=== PATIENT | female | born 1995 | race Caucasian/White ===

== ENCOUNTER 2016-05-12 19:02 | Outpatient (CLI) | payer MEDICAID ==
--- NOTE | 2016-05-12 20:00 | L&D Flow Sheet ---
LD Flowsheet Datetime Report Generated by CPN: 05/12/2016 20:00 Datetime: 05/12/2016 19:47 Communication Additional Nursing Comments: Pt stable, ambulatory, leaving unit accompanied by FOB (Valentina Lashanda, RN) Datetime: 05/12/2016 19:44 Assessment A Comments: Monitors discontinued for reactive NST. (Valentina Lashanda, RN) Teaching Teaching Comments: Pt encouraged to return to hospital for suspected ROM, heavy vaginal bleeding, strong/regular contractions or decreased movment. Pt verbalizes understanding, will make appt in office wednes (Valentina Lashanda, RN) Datetime: 05/12/2016 19:36 Vital Signs NBP Sys/Pricilla/Mean (mmHg): 128 (QS system process) : 81 (QS system process) : 98 (QS system process) Pulse: 94 (QS system process) Respirations: 15 (Valentina Lashanda, RN) Temperature (F): 98.2 (Valentina Lashanda, RN) Temperature (C): 36.8 (QS system process) Datetime: 05/12/2016 19:22 Pain Pain Assessment Comments: Pt in no obvious distress (Valentina Lashanda, RN) Vaginal Exam Membrane Status: Intact (Valentina Lashanda, RN) Vaginal Bleeding: None (Valentina Lashanda, RN) Patient Care I/O Interventions: Ice Chips Given; Popsicle; Clear Liquids Given (Valentina Lashanda, RN)
--- NOTE | 2016-05-12 21:56 | Non Stress Test Report ---
Non Stress Test Datetime Report Generated by CPN: 05/12/2016 21:56 DEMOGRAPHIC Test Number: 1 EGA NST: 40.4 INDICATION Indication for Study: Ordered by Provider MONITORING Monitor Explained: Monitor Explained; Test Explained; Patient Verbalized Understanding Time on Monitor: 05/12/2016 19:21 Time off Monitor: 05/12/2016 19:44 NST Duration: 23 NST INTERVENTIONS NST Interventions: PO Hydration; Reposition Patient Physician Notified NST: Dr. Oropeza BABY A: [id number] BABY A Movement : Present Contraction Frequency : none FHR Baseline : 140 Accelerations : 15X15 Decelerations : None Variability : Moderate 6-25bpm NST Review: Meets Criteria for Reactive NST NST Review and Verified By : DANYA Rice Results: Reactive NST COMMENTS NST Comments: see flowsheet for VS NST REPORT Report Trigger: Send Report
--- NOTE | 2016-05-13 04:46 | L&D Current Admission ---
Current Admit Datetime Report Generated by CPN: 05/13/2016 04:45 ADMISSION INFORMATION Chief Complaint: Repeat NST (05/12/2016 19:22:Valentina Pyle RN)
--- NOTE | 2016-05-13 04:46 | L&D Flow Sheet ---
LD Flowsheet Datetime Report Generated by CPN: 05/13/2016 04:45 Datetime: 05/12/2016 19:47 Communication Additional Nursing Comments: Pt stable, ambulatory, leaving unit accompanied by FOB (Valentina Lashanda, RN) Datetime: 05/12/2016 19:44 Uterine Activity Monitor Mode: External (Valentina Lashanda, RN) Frequency (min): None (Valentina Lashanda, RN) Resting Tone (Palpate): Relaxed (Valentina Lashanda, RN) Assessment A Monitor Mode: External US (Valentina Lashanda, RN) FHR Baseline Rate : 140 (Valentina Lashanda, RN) Variability: Moderate 6-25 bpm (Valentina Lashanda, RN) Accelerations: 15X15 (Valentina Lashanda, RN) Decelerations: None (Valentina Lashanda, RN) Comments: Monitors discontinued for reactive NST. (Valentina Lashanda, RN) Teaching Teaching Comments: Pt encouraged to return to hospital for suspected ROM, heavy vaginal bleeding, strong/regular contractions or decreased movment. Pt verbalizes understanding, will make appt in office thursday (Valentina Pyle RN) Datetime: 05/12/2016 19:36 Vital Signs NBP Sys/Pricilla/Mean (mmHg): 128 (QS system process) : 81 (QS system process) : 98 (QS system process) Pulse: 94 (QS system process) Respirations: 15 (Valentina Lashanda, RN) Temperature (F): 98.2 (Valentina Lashanda, RN) Temperature (C): 36.8 (QS system process) Datetime: 05/12/2016 19:22 Pain Pain Assessment Comments: Pt in no obvious distress (Valentina Lashanda, RN) Vaginal Exam Membrane Status: Intact (Valentina Lashanda, RN) Vaginal Bleeding: None (Valentina Lashanda, RN) Patient Care I/O Interventions: Ice Chips Given; Popsicle; Clear Liquids Given (Valentina Pyle RN)
--- NOTE | 2016-05-13 04:46 | L&D General Admission ---
General Admit Datetime Report Generated by CPN: 05/13/2016 04:45 INFORMATION Patient Age: 20 (03/26/2016 14:37:QS system process) EDC: 05/08/2016 00:00 (05/12/2016 19:17:Valentina Pyle RN) : 3 (05/12/2016 19:17:Valentina Pyle RN) Para: 0 (05/12/2016 19:47:Valentina Pyle RN) Para: 0 (05/12/2016 19:17:Valentina Pyle RN) Term: 0 (05/12/2016 19:17:Valentina Pyle RN) : 0 (05/12/2016 19:17:Valentina Pyle RN) Spontaneous Abortions: 2 (05/12/2016 19:17:Valentina Pyle RN) Induced Abortions: 0 (05/12/2016 19:17:Valentina Pyle RN) Livin (05/12/2016 19:17:Valentina Pyle RN) Cesareans: 0 (05/12/2016 19:17:Valentina Pyle RN) VBACs: 0 (05/12/2016 19:17:Valentina Pyle RN) Ectopic: 0 (05/12/2016 19:17:Valentina Pyle RN) Multiple Births: 0 (05/12/2016 19:17:Valentina Pyle RN) Baby, Number in Womb: 1 (05/12/2016 19:47:Valentina Pyle RN) Baby, Number in Womb: 1 (05/12/2016 19:17:Valentina Pyle RN) CARE Primary Caster Helper: [facility] (05/12/2016 19:17:Valentina Pyle RN) Caster Helper Other: KESHA (05/12/2016 19:17:Valentina Pyle RN) Adequate Care: Yes (05/12/2016 19:17:Valentina Pyle RN) Prepregnancy Weight (lb): 188 (05/12/2016 19:17:Valentina Pyle RN) Prepregnancy Weight (kg): 85.5 (05/12/2016 19:17:QS system process) ALLERGIES Medication Allergy: No (05/12/2016 19:17:Valentina Pyle RN) Medication Allergies: No Known Allergies (05/01/2012) (03/26/2016 14:37:QS system process) Latex Allergy: No Latex Allergies (05/12/2016 19:17:Valentina Pyle RN) COMMUNICATION Primary Language: Montserratian (05/12/2016 19:17:Valentina Pyle RN) Medical Tx Preferred Language: Montserratian (05/12/2016 19:17:Valentina Pyle RN) DEMOGRAPHICS Address: [address] [place] [id number] (03/26/2016 14:37:QS system process) Zipcode: [address] (03/26/2016 14:37:QS system process) Home (03/26/2016 14:37:QS system process) SSN: [id number] (03/26/2016 14:37:QS system process) Next of Kin Name: HOMERO CASTANEDA (03/26/2016 14:37:QS system process) Next of Kin (03/26/2016 14:37:QS system process) Next of Kin Relationship: OR (03/26/2016 14:37:QS system process) Date of : 1995 (03/26/2016 14:37:QS system process) Marital Status: Single (03/26/2016 14:37:QS system process) Sex: Female (03/26/2016 14:37:QS system process) Race: (03/26/2016 14:37:QS system process) Ethnicity: Non- or (03/26/2016 14:37:QS system process) Restorationist: Other (03/26/2016 14:37:QS system process) LABS Blood Type: A Negative (05/12/2016 19:17:Valentina Pyle RN) Antibody Screen: negative (05/12/2016 19:17:Valentina Pyle RN) Group Beta Strep: negative (05/12/2016 19:17:Valentina Pyle RN) Gonorrhea: Negative (05/12/2016 19:17:Valentina Pyle RN) Chlamydia: Negative (05/12/2016 19:17:Valentina Pyle RN) RPR/VDRL: Nonreactive (05/12/2016 19:17:Valentina Pyle RN) HIV Exposure Test: Negative (05/12/2016 19:17:Valentina Lashanda, RN) OB/PREVIOUS HISTORY Comments Obstetrical History: G1: SAB G2: SAB G3: Current (05/12/2016 19:17:Valentina Lashanda, RN) INFECTIOUS HISTORY Inf Hx Chlamydia: Yes (05/12/2016 19:17:Valentina Lashanda, RN) Details of Infectious Hx: chlam in 2012 and 2014 (05/12/2016 19:17:Valentina Lashanda, RN) GENETIC HISTORY Gen Hx Drugs/Meds since LMP: Yes (05/12/2016 19:17:Valentina Pyle RN) Gen Hx Medications: pnv, iron (05/12/2016 19:17:Valentina Pyle RN)
--- NOTE | 2016-05-13 04:47 | L&D Discharge Summary ---
OB Discharge Summary Datetime Report Generated by CPN: 05/13/2016 04:45 DISCHARGE DIAGNOSIS Diagnosis/Symptoms: Reassuring Surveillance - Annotate Details Diagnoses/Symptoms Other: Repeat NST reactive Gestation: 40.4 Number of Babies in Womb: 1 Parity: 0 DIET/ACTIVITY/RESTRICTIONS Diet: Regular Activity: Normal Activity TEACHING/INSTRUCTIONS/REFERRALS Instructions Given To: Pt, significant other Instructions Understood: Patient Verbalized Understanding; Support Person Verbalized Understanding Educational Materials- Other: Term labor instructions discussed DISCHARGE INFORMATION Discharged AMA: No Discharge Date/Time: 05/12/2016 19:47 Discharged To: Home Discharge Provider Name: Oropeza Accompanied By: FOB Discharge Method: Ambulatory Condition: Stable FOLLOW UP INFORMATION Follow Up With: [facility] Follow Up On: 1-2 Days Follow Up Phone Number: [facility] - Comments: See flowsheet for VS and education
--- NOTE | 2016-05-13 04:47 | L&D Admission Assessment ---
LD ADM ASMT Datetime Report Generated by CPN: 05/13/2016 04:45 PAIN Pain Comments: Pt in no obvious distress (05/12/2016 19:22:Valentina Lashanda, RN) CONTRACTIONS Frequency (min): None (05/12/2016 19:44:Valentina Lashanda, RN) Resting Tone [place]: Relaxed (05/12/2016 19:44:Valentina Lashanda, RN) VAGINAL EXAM Membranes Status: Intact (05/12/2016 19:22:Valentina Lashanda, RN) RESPIRATORY Respiratory Effort: Unlabored (05/12/2016 19:22:Valentina Lashanda, RN) GASTROINTESTINAL Last Meal: 05/12/2016 18:30 (05/12/2016 19:22:Valentina Lashanda, RN) BABY A FHR Baseline Rate (bpm) Baby A: 140 (05/12/2016 19:44:Valentina Pyle RN) Variability Baby A: Moderate 6-25 bpm (05/12/2016 19:44:Valentina Pyle RN) Accelerations Baby A: 15X15 (05/12/2016 19:44:Valentina Pyle RN) Decelerations Baby A: None (05/12/2016 19:44:Valentina Pyle RN)
--- NOTE | 2016-05-13 04:47 | Antepartum Discharge Summary ---
Antepartum DC Datetime Report Generated by CPN: 05/13/2016 04:45 DIET/ACTIVITY/RESTRICTIONS Diet: Regular (05/12/2016 19:47:Valentina Lashanda, RN) Activity: Normal Activity (05/12/2016 19:47:Valentina Lashanda, RN) TEACHING/INSTRUCTIONS/REFERRALS Instructions Given To: Pt, significant other (05/12/2016 19:47:Valentina Lashanda, RN) Instructions Understood: Patient Verbalized Understanding; Support Person Verbalized Understanding (05/12/2016 19:47:Valentina Pyle RN) Educational Materials- Other: Term labor instructions discussed (05/12/2016 19:47:Valentina Pyle RN) DISCHARGE INFORMATION Discharged AMA: No (05/12/2016 19:47:Valentina Pyle RN) Discharge Date/Time: 05/12/2016 19:47 (05/12/2016 19:47:Valentina Pyle RN) Discharged To: Home (05/12/2016 19:47:Valentina Pyle RN) Discharge Provider Name: Dr Oropeza (05/12/2016 19:47:Valentina Pyle RN) Accompanied By: YAZAN (05/12/2016 19:47:Valentina Pyle RN) Discharge Method: Ambulatory (05/12/2016 19:47:Valentina Pyle RN) Condition: Stable (05/12/2016 19:47:Valentina Pyle RN) FOLLOW UP INFORMATION Follow Up With: [facility] (05/12/2016 19:47:Valentina Pyle RN) Follow Up On: 1-2 Days (05/12/2016 19:47:Valentina Pyle RN) Follow Up Phone Number: [facility] - (05/12/2016 19:47:Valentina Pyle RN) Comments: See flowsheet for VS and education (05/12/2016 19:47:Valentina Pyle RN)
== END 2016-05-12 19:47 | disposition home or self-care (01) ==
LOC: LC 19:02
PROVIDERS: ATTEND Obstetrics & Gynecology
PROC: 4A1HXCZ Monitoring of Products of Conception, Cardiac Rate, External Approach (ICD-10-PCS; principal; 2016-05-12)
DX: O48.0 Post-term pregnancy (principal); Z3A.40 40 weeks gestation of pregnancy
CPT/HCPCS: 59025

== ENCOUNTER 2016-05-13 09:47 | Outpatient (CLI) | payer MEDICAID ==
[2016-05-13 10:29] LABS: APPEARANCE,URINE CLOUDY; BILIRUBIN,URINE NEGATIVE (NEGATIVE); GLUCOSE, URINE NEGATIVE (NEGATIVE); KETONES,URINE NEGATIVE (NEGATIVE); LEUKOCYTE ESTERASE,URINE LARGE (NEGATIVE); NITRITE,URINE NEGATIVE (NEGATIVE); PROTEIN,URINE NEGATIVE (NEGATIVE); UROBILINOGEN,URINE NEGATIVE mg/dL (<2.0)
--- NOTE | 2016-05-13 10:44 | Non Stress Test Report ---
Non Stress Test Datetime Report Generated by CPN: 05/13/2016 10:44 DEMOGRAPHIC EGA NST: 40.5 INDICATION Indication for Study: Ordered by Provider MONITORING Monitor Explained: Monitor Explained; Test Explained; Patient Verbalized Understanding Time on Monitor: 05/13/2016 10:06 Time off Monitor: 05/13/2016 10:43 NST Duration: 37 NST INTERVENTIONS NST Interventions: None Physician Notified NST: A Emmel CNM BABY A Movement : Present Contraction Frequency : none FHR Baseline : 135 Accelerations : 15X15 Decelerations : None Variability : Moderate 6-25bpm NST Review: Meets Criteria for Reactive NST NST Review and Verified By : Janes Adorno RN NST Results: Reactive NST REPORT Report Trigger: Send Report
[2016-05-13 17:41] LABS: URINE BARBITURATES SCREEN NEGATIVE; URINE METHADONE SCREEN NEGATIVE; URINE PHENCYCLIDINE SCREEN NEGATIVE
--- NOTE | 2016-05-15 04:46 | L&D Discharge Summary ---
OB Discharge Summary Datetime Report Generated by CPN: 05/15/2016 04:45 DISCHARGE DIAGNOSIS Diagnosis/Symptoms: Other Diagnoses/Symptoms Other: Not in Labor Gestation: 40.6 Number of Babies in Womb: 1 Parity: 0 DIET/ACTIVITY/RESTRICTIONS Diet: Regular Activity: Normal Activity TEACHING/INSTRUCTIONS/REFERRALS Instructions Given To: pt Instructions Understood: Patient Verbalized Understanding; Support Person Verbalized Understanding Referrals: None Educational Materials- Other: [employer] [facility] Early Labor Signs DISCHARGE INFORMATION Discharged AMA: No Discharge Date/Time: 05/13/2016 11:00 Discharged To: Home Discharge Provider Name: EMMEL Accompanied By: Significant other Discharge Method: Ambulatory Condition: Stable FOLLOW UP INFORMATION Follow Up With: [facility] Follow Up On: As Scheduled Follow Up Phone Number: [facility] - Comments: Pt discharged and signed up for IOL Post Dates 05/14 for cervidil. Pt verbalizes understanding, no distress noted, understands s/s to report, when to return to hospital for evaluation, to keep scheduled appointments. Agrees with plan of care, ambulates without difficulty, states relief from pain, declines pain medication at discharge. GENERAL INSTR-CALL PROVIDER IF: Contractions: Contractions or cramps become more frequent than 8 in one hour or 4 in 20 minutes; Regular painful contractions every 5 minutes or less for one hour. Time your contractions from the beginning of one to the beginning of the next Pressure: Pressure in your vagina or lower abdomen that may feel like the baby is pushing down Period Like Cramps: Period-like cramps or low dull backache that may come and go Cramps/Diarrhea: Abdominal cramps that may be accompanied by diarrhea Gush of Fluid/Blood: Gush of fluid or blood from your vagina (it is normal to have spotting after vaginal exam or intercourse) Vaginal Discharge: Change in the type or amount of vaginal discharge Decreased Movement: Your baby is not moving as much as usual- 4 movements in 1 hour after drinking and resting on side Temperature: Temperature greater than 100.0(F) orally
--- NOTE | 2016-05-15 04:46 | Antepartum Discharge Summary ---
Antepartum DC Datetime Report Generated by CPN: 05/15/2016 04:45 DIET/ACTIVITY/RESTRICTIONS Diet: Regular (05/13/2016 10:44:Carlos Kirk, RN) Activity: Normal Activity (05/13/2016 10:44:Carlos Kirk, RN) TEACHING/INSTRUCTIONS/REFERRALS Instructions Given To: pt (05/13/2016 10:44:Carlos Kirk, RN) Instructions Understood: Patient Verbalized Understanding; Support Person Verbalized Understanding (05/13/2016 10:44:Carlos Bradley RN) Referrals: None (05/13/2016 10:44:Carlos Bradley RN) Educational Materials- Other: Kick Counts Early Labor Signs (05/13/2016 10:44:Carlos Bradley RN) DISCHARGE INFORMATION Discharged AMA: No (05/13/2016 10:44:Carlos Bradley RN) Discharge Date/Time: 05/13/2016 11:00 (05/13/2016 10:44:Carlos Bradley RN) Discharged To: Home (05/13/2016 10:44:Carlos Bradley RN) Discharge Provider Name: EMMEL (05/13/2016 10:44:Carlos Bradley RN) Accompanied By: Significant other (05/13/2016 10:44:Carlos Bradley RN) Discharge Method: Ambulatory (05/13/2016 10:44:Carlos Bradley RN) Condition: Stable (05/13/2016 10:44:Carlos Bradley RN) FOLLOW UP INFORMATION Follow Up With: [facility] (05/13/2016 10:44:Carlos Bradley RN) Follow Up On: As Scheduled (05/13/2016 10:44:Carlos Bradley RN) Follow Up Phone Number: [facility] - (05/13/2016 10:44:Carlos Bradley RN) Comments: Pt discharged and signed up for IOL Post Dates 05/14 for cervidil. Pt verbalizes understanding, no distress noted, understands s/s to report, when to return to hospital for evaluation, to keep scheduled appointments. Agrees with plan of care, ambulates without difficulty, states relief from pain, declines pain medication at discharge. (05/13/2016 10:44:Carlos Bradley RN) GENERAL INSTR-CALL PROVIDER IF: Contractions: Contractions or cramps become more frequent than 8 in one hour or 4 in 20 minutes; Regular painful contractions every 5 minutes or less for one hour. Time your contractions from the beginning of one to the beginning of the next (05/13/2016 10:44:Carlos Bradley RN) Pressure: Pressure in your vagina or lower abdomen that may feel like the baby is pushing down (05/13/2016 10:44:Carlos Bradley RN) Period Like Cramps: Period-like cramps or low dull backache that may come and go (05/13/2016 10:44:Carlos Bradley RN) Cramps/Diarrhea: Abdominal cramps that may be accompanied by diarrhea (05/13/2016 10:44:Carlos Bradley RN) Gush of Fluid/Blood: Gush of fluid or blood from your vagina (it is normal to have spotting after vaginal exam or intercourse) (05/13/2016 10:44:Carlos Bradley RN) Vaginal Discharge: Change in the type or amount of vaginal discharge (05/13/2016 10:44:Carlos Bradley RN) Decreased Movement: Your baby is not moving as much as usual- 4 movements in 1 hour after drinking and resting on side (05/13/2016 10:44:Carlos Bradley RN) Temperature: Temperature greater than 100.0(F) orally (05/13/2016 10:44:Carlos Bradley RN) Hypertension Signs/Symptoms: Severe headache which is not relieved 30 minutes after taking Tylenol(Acetaminophen); Blurry vision or spots before your eyes; Severe heartburn or pain on the upper right side of your abdomen that is not relieved by an antacid; Increased swelling in your face, hands or feet (05/13/2016 10:44:Carlos Bradley RN) Urinary Output: Decreased urinary output or dark colored urine (05/13/2016 10:44:Carlos Bradley RN) ADDITIONAL INSTRUCTIONS N/V [place]/Crackers: Keep dry toast/crackers with you to [facility] on (05/13/2016 10:44:Carlos Bradley RN) N/V Frequent Meals: Eat small frequent meals (05/13/2016 10:44:Carlos Bradley RN) N/V Empty Stomach: Try to keep something in your stomach (don't let your stomach get empty) (05/13/2016 10:44:Carlos Bradley RN) N/V Time Getting Up: Take your time getting up (05/13/2016 10:44:Carlos Bradley RN) N/V Avoid Smells: Avoid smells that make you feel sick (05/13/2016 10:44:Carlos Bradley RN) Travel Seatbelts: Wear seatbelts or safety/lap belts (05/13/2016 10:44:Carlos Bradley RN) Travel Walk Frequently: Walk frequently, every 1-2 hours (05/13/2016 10:44:Carlos Bradley RN) Travel Comfort Clothes: Wear clothing that does not constrict and comfortable shoes (05/13/2016 10:44:Carlos Bradley RN) Travel Light Snack: Keep a light snack (e.g. dry crackers) with you at all times to prevent nausea (05/13/2016 10:44:Carlos Bradley RN) Travel Hydration: Drink plenty of water, low sodium and noncaffeinated drinks (05/13/2016 10:44:Carlos Bradley RN) Travel Medications: DO NOT take any medication that is not approved by your physician first (05/13/2016 10:44:Carlos Bradley RN) Travel PN Records: Always keep a copy of your medical record with you just in case (05/13/2016 10:44:Carlos Bradley RN) Edema Avoid Standing: Avoid standing for long periods, keep legs up when you can (05/13/2016 10:44:Carlos Bradley RN) Edema Rest on Side: When resting, lie on your side (left is best) (05/13/2016 10:44:Carlos Bradley RN) Edema Limit Sodium: Limit the amount of salty foods you eat (05/13/2016 10:44:Carlos Bradley RN) Edema Support Hose: Try to wear support hose as much as possible (05/13/2016 10:44:Carlos Bradley RN) Exercise Overheating: Avoid situations that would cause you to become overheated (05/13/2016 10:44:Carlos Bradley RN) Exercise Weather: Exercise outdoors only if the weather is reasonable and not too hot (05/13/2016 10:44:Carlos Bradley RN) Exercise Exertion: Do not over exert yourself when you exercise (05/13/2016 10:44:Carlos Bradley RN) Exercise Hydration: Drink plenty of fluids, especially water (05/13/2016 10:44:Carlos Bradley RN) Exercise Support: Wear good support hose, bra and shoes when exercising (05/13/2016 10:44:Carlos Bradley RN) Varicose Veins Instructions: Do not stand for long periods of time (05/13/2016 10:44:Carlos Bradley RN) Varicose Veins Elevate Sit: Try to keep your legs elevated when you are sitting (05/13/2016 10:44:Carlos Bradley RN) Varicose Veins Elevate Lying: When lying down, keep your legs elevated (05/13/2016 10:44:Carlos Bradley RN) Varicise Veins Non Binding: When wearing stockings or socks, make sure they are not too tight and bind your legs (05/13/2016 10:44:Carlos Bradley RN) Varicose Veins Support: Wear support hose/stockings at all times (05/13/2016 10:44:Carlos Bradley RN) Varicose Veins Periodic Move: If you have a job where you sit a lot, get up periodically and walk around (05/13/2016 10:44:Carlos Bradley RN)
--- NOTE | 2016-05-19 06:12 | L&D General Admission ---
General Admit Datetime Report Generated by CPN: 05/19/2016 06:00 INFORMATION Patient Age: 20 (03/26/2016 14:37:QS system process) EDC: 05/08/2016 00:00 (05/12/2016 19:17:Valentina Pyle RN) : 3 (05/12/2016 19:17:Valentina Pyle RN) Para: 0 (05/12/2016 19:47:Valentina Pyle RN) Term: 0 (05/12/2016 19:17:Valentina Pyle RN) : 0 (05/12/2016 19:17:Valentina Pyle RN) Spontaneous Abortions: 2 (05/12/2016 19:17:Valentina Pyle RN) Induced Abortions: 0 (05/12/2016 19:17:Valentina Pyle RN) Livin (05/12/2016 19:17:Valentina Pyle RN) Cesareans: 0 (05/12/2016 19:17:Valentina Pyle RN) VBACs: 0 (05/12/2016 19:17:Valentina Pyle RN) Ectopic: 0 (05/12/2016 19:17:Valentina Pyle RN) Multiple Births: 0 (05/12/2016 19:17:Valentina Pyle RN) Baby, Number in Womb: 1 (05/12/2016 19:47:Valentina Pyle RN) CARE Primary Field Marketing Representative: [facility] (05/12/2016 19:17:Valentina Pyle RN) Field Marketing Representative Other: [facility] (05/12/2016 19:17:Valentina Pyle RN) Adequate Care: Yes (05/12/2016 19:17:Valentina Pyle RN) Prepregnancy Weight (lb): 188 (05/12/2016 19:17:Valentina Pyle RN) Prepregnancy Weight (kg): 85.5 (05/12/2016 19:17:QS system process) Height (in): 65 (05/13/2016 10:19:QS system process) ALLERGIES Medication Allergy: No (05/12/2016 19:17:Valentina Pyle RN) Medication Allergies: No Known Allergies (05/13/2016) (05/13/2016 09:59:QS system process) Latex Allergy: No Latex Allergies (05/12/2016 19:17:Valentina Pyle RN) Food Allergies: N/A (05/12/2016 19:17:Nallely Gonzalez RN) Environmental Allergies: N/A (05/12/2016 19:17:Nallely Gonzalez RN) COMMUNICATION Primary Language: Qatari (05/12/2016 19:17:Valentina Pyle RN) Medical Tx Preferred Language: Qatari (05/12/2016 19:17:Valentina Pyle RN) Communication Barrier(s): None (05/12/2016 19:17:Carlos Bradley RN) DEMOGRAPHICS Address: [address] [place] [id number] (03/26/2016 14:37:QS system process) Zipcode: [address] (03/26/2016 14:37:QS system process) Home (03/26/2016 14:37:QS system process) SSN: [id number] (03/26/2016 14:37:QS system process) Next of Kin Name: HOMERO CASTANEDA (03/26/2016 14:37:QS system process) Next of Kin (03/26/2016 14:37:QS system process) Next of Kin Relationship: OR (03/26/2016 14:37:QS system process) Date of : 1995 (03/26/2016 14:37:QS system process) Marital Status: Single (03/26/2016 14:37:QS system process) Sex: Female (03/26/2016 14:37:QS system process) Race: (03/26/2016 14:37:QS system process) Ethnicity: Non- or (03/26/2016 14:37:QS system process) Rastafarian: Other (03/26/2016 14:37:QS system process) FOB Involved: Yes (05/12/2016 19:17:Nallely Gonzalez RN) Father of Baby Name: Marcin Fields (05/12/2016 19:17:Nallely Gonzalez RN) DRUG AND ALCOHOL USE Alcohol: No (05/12/2016 19:17:Carlos Bradley RN) Cigarettes: Never Smoker. [id number] (05/12/2016 19:17:Carlos Bradley RN) Marijuana: No (05/12/2016 19:17:Carlos Bradley RN) Cocaine: No (05/12/2016 19:17:Carlos Bradley RN) Other Illicit Drugs: No (05/12/2016 19:17:Carlos Bradley RN) VACCINE HISTORY Influenza Vaccine: No (05/12/2016 19:17:Nallely Gonzalez RN) Pneumococcal Vaccine: No (05/12/2016 19:17:Nallely Gonzalez RN) Tetanus Vaccine: No (05/12/2016 19:17:Nallely Gonzalez RN) Tdap Vaccine: No (05/12/2016 19:17:Nallely Gonzalez RN) Hepatitis B Vaccine: No (05/12/2016 19:17:Nallely Gonzalez RN) Contact Printer Dry Film: [facility] (05/12/2016 19:17:Nallely Gonzalez RN) Feeding Preference: Formula (05/12/2016 19:17:Elli Suazo RN) Benefit of Breast Feed Discussed: Yes (05/12/2016 19:17:Nallely Gonzalez RN) Circumcision: N/A (05/12/2016 19:17:Carlos Bradley RN) Classes Attended: No (05/12/2016 19:17:Carlos Bradley RN) Tubal Ligation: No (05/12/2016 19:17:Carlos Bradley RN) Tubal Authorization Signed: N/A (05/12/2016 19:17:Carlos Bradley RN) Consent: N/A (05/12/2016 19:17:Carlos Bradley RN) Consent Signed: N/A (05/12/2016 19:17:Carlos Bradley RN) Pain Management Plans: None (05/12/2016 19:17:Nallely Gonzalez RN) Plans for Labor and Delivery: None (05/12/2016 19:17:Nallely Gonzalez RN) Support Person: Marcin Fields (05/12/2016 19:17:Nallely Gonzalez RN) Support Person Relationship: Significant Other (05/12/2016 19:17:Nallely Gonzalez RN) Cultural/Spritual Practice: No (05/12/2016 19:17:Carlos Bradley RN) Spir/Cult Dietary Needs: No (05/12/2016 19:17:Carlos Bradley RN) LIVING SITUATION/DISCHARGE PLAN Living Arrangements: House (05/12/2016 19:17:Nallely Gonzalez RN) Adequate Access to:: Electric; Heat; Refrigeration; Plumbing/Running water; Phone; Transportation (05/12/2016 19:17:Nallely Gonzalez RN) WIC Program: Yes (05/12/2016 19:17:Nallely Gonzalez RN) Discharge Nail Assembly Machine Operator Person: Marcin Donnie (05/12/2016 19:17:Nallely Gonzalez RN) Person to Help after Discharge: Marcin Donnie (05/12/2016 19:17:Nallely Gonzalez RN) Currently Using Commun Resources: No (05/12/2016 19:17:Nallely Gonzalez RN) Outside Agency/Preassembler And Inspector: No (05/12/2016 19:17:Nallely Gonzalez RN) Car Seat for Discharge: Yes (05/12/2016 19:17:Nallely Gonzalez RN) Adoption Requested: No (05/12/2016 19:17:Nallely Gonzalez RN) Pt Contact w/ Post : N/A (05/12/2016 19:17:Nallely Gonzalez RN) LABS Blood Type: A Negative (05/12/2016 19:17:Valentina Pyle RN) Antibody Screen: negative (05/12/2016 19:17:Valentina Pyle RN) Rho(G) this : Yes (05/12/2016 19:17:Carlos Bradley RN) Date Rho(G) Given: 02/19/16 (05/12/2016 19:17:Carlos Bradley RN) Hemoglobin: 8.3 L (05/16/2016 07:05:QS system process) Hematocrit: 24.8 L (05/16/2016 07:05:QS system process) MCV: 82 (05/16/2016 07:05:QS system process) Group Beta Strep: negative (05/12/2016 19:17:Valentina Pyle RN) Gonorrhea: Negative (05/12/2016 19:17:Valentina Pyle RN) Chlamydia: Negative (05/12/2016 19:17:Valentina Pyle RN) RPR/VDRL: Nonreactive (05/12/2016 19:17:Valentina Pyle RN) HIV Exposure Test: Negative (05/12/2016 19:17:Valentina Pyle RN) Hepatitis B: Negative (05/12/2016 19:17:Carlos Bradley RN) Rubella: Non-Immune (05/12/2016 19:17:Carlos Bradley RN) Varicella: Negative (05/12/2016 19:17:Carlos Bradley RN) Varicella Titer: 60 (05/12/2016 19:17:Carlos Bradley RN) OB/PREVIOUS HISTORY Current Procedures: Ultrasound; NST (05/12/2016 19:17:Nallely Gonzalez RN) History of Previous : No (05/12/2016 19:17:Nallely Gonzalez RN) History of Gestational Diabetes: No (05/12/2016 19:17:Nallely Gonzalez RN) History of PIH: No (05/12/2016 19:17:aNllely Gonzalez RN) History of Incompetent Cervix: No (05/12/2016 19:17:Nallely Gonzalez RN) History of Placenta Previa/Abrup: No (05/12/2016 19:17:Nallely Gonzalez RN) History of Macrosomia: No (05/12/2016 19:17:Nallely Gonzalez RN) History of IUGR: No (05/12/2016 19:17:Nallely Gonzalez RN) History of Hemorrhage: No (05/12/2016 19:17:Nallely Gonzalez RN) History of Loss/Stillborn: No (05/12/2016 19:17:Nallely Gonzalez RN) History of : No (05/12/2016 19:17:Nallely Gonzalez RN) History of D (Rh) Sensitization: No (05/12/2016 19:17:Nallely Gonzalez RN) History Recurrent Loss/Stillborn: No (05/12/2016 19:17:Nallely Gonzalez RN) History Depression/PP Depression: No (05/12/2016 19:17:Nallely Gonzalez RN) History of Uterine Anomaly/FRIEDA: No (05/12/2016 19:17:Nallely Gonzalez RN) History of Infertility: No (05/12/2016 19:17:Nallely Gonzalez RN) History of ART Treatment: No (05/12/2016 19:17:Nallely Gonzalez RN) History of FRIEDA: No (05/12/2016 19:17:Nallely Gonzalez RN) Comments Obstetrical History: G1: SAB G2: SAB G3: Current (05/12/2016 19:17:Valentina Pyle RN) MEDICAL HISTORY Med Hx Diabetes: No (05/12/2016 19:17:Nallely Gonzalez RN) Med Hx Hypertension: No (05/12/2016 19:17:Nallely Gonzalez RN) Med Hx Heart Disease: No (05/12/2016 19:17:Nallely Gonzalez RN) Med Hx Autoimmune Disorder: No (05/12/2016 19:17:Nallely Field, RN) Med Hx Kidney Disease/UTI: No (05/12/2016 19:17:Nallely Gonzalez RN) Med Hx Neurologic/Epilepsy: No (05/12/2016 19:17:Nallely Gonzalez RN) Med Hx Psychiatric Disorders: No (05/12/2016 19:17:Nallely Gonzalez, RN) Med Hx Hepatitis/Liver Disease: No (05/12/2016 19:17:Nallely Gonzalez RN) Med Hx Varicosities/Phlebitis: No (05/12/2016 19:17:Nallely Gonzalez RN) Med Hx Thyroid Dysfunction: No (05/12/2016 19:17:Nallely Gonzalez RN) Med Hx Trauma/Violence: No (05/12/2016 19:17:Nallely Gonzalez RN) Med Hx Blood Transfusion: No (05/12/2016 19:17:Nallely Gonzalez RN) Med Hx Pulmonary (Asthma,TB): No (05/12/2016 19:17:Nallely Gonzalez RN) Med Hx Breast: No (05/12/2016 19:17:Nallely Gonzalez RN) Med Hx LABORATORY ASSOCIATE Surgery: No (05/12/2016 19:17:Nallely Gonzalez RN) Med Hx Hospitalization/Surgery: No (05/12/2016 19:17:Nallely Gonzalez RN) Med Hx Anesthetic Complications: No (05/12/2016 19:17:Nallely Gonzalez, RN) Med Hx Abnormal Pap Smear: No (05/12/2016 19:17:Nallely Gonzalez, RN) Other Medical Diseases: No (05/12/2016 19:17:Nallely Gonzalez RN) Med Hx Significant Family Hx: No (05/12/2016 19:17:Nallely Gonzalez RN) Details of Med/Surg Hx: Obesity (05/12/2016 19:17:Carlos Bradley RN) INFECTIOUS HISTORY Inf Hx Gonorrhea: No (05/12/2016 19:17:Nallely Gonzalez RN) Inf Hx Chlamydia: Yes (05/12/2016 19:17:Valentina Pyle RN) Inf Hx Syphilis: No (05/12/2016 19:17:Nallely Gonzalez RN) Inf Hx HIV/AIDS: No (05/12/2016 19:17:Nallely Gonzalez RN) Inf Hx Human Papilloma Virus: No (05/12/2016 19:17:Nallely Gonzalez RN) Inf Hx Pt/Partner Genital Herpes: No (05/12/2016 19:17:Nallely Gonzalez RN) Inf Hx Tuberculosis/Exposure: No (05/12/2016 19:17:Nallely Gonzalez RN) Inf Hx Hepatitis B,C: No (05/12/2016 19:17:Nallely Gonzalez RN) Inf Hx Rash or Viral Illness: No (05/12/2016 19:17:Nallely Gonzalez RN) Details of Infectious Hx: chlamydia in 2012 and 2014 (05/12/2016 19:17:Carlos Bradley RN) GENETIC HISTORY Gen Hx Age >=35 at [facility]: No (05/12/2016 19:17:Nallely Gonzalez RN) Gen Hx Thalassemia: No (05/12/2016 19:17:Nallely Gonzalez RN) Gen Hx Congenital Heart Defect: No (05/12/2016 19:17:Nallely Gonzalez RN) Gen Hx Neural Tube Defect: No (05/12/2016 19:17:Nallely Gonzalez RN) Gen Hx Down's Syndrome: No (05/12/2016 19:17:Nallely Gonzalez RN) Gen Hx Christ-Sachs: No (05/12/2016 19:17:Nallely Gonzalez RN) Gen Hx Tera: No (05/12/2016 19:17:Nallely Gonzalez RN) Gen Hx Familial Dysautonomia: No (05/12/2016 19:17:Nallely Gonzalez RN) Gen Hx Sickle Cell Disease/Trait: No (05/12/2016 19:17:Nallely Gonzalez RN) Gen Hx Hemophilia/Blood Disorder: No (05/12/2016 19:17:Nallely Gonzalez RN) Gen Hx Muscular Dystrophy: No (05/12/2016 19:17:Nallely Gonzalez RN) Gen Hx Cystic Fibrosis: No (05/12/2016 19:17:Nallely Gonzalez RN) Gen Hx Huntingtons Chorea: No (05/12/2016 19:17:Nallely Gonzalez RN) Gen Hx Mental Retardation/Autism: No (05/12/2016 19:17:Nallely Gonzalez RN) Gen Hx Tested for Fragile X: No (05/12/2016 19:17:Nallely Gonzalez RN) Gen Hx Other Inher/Chromosomal: No (05/12/2016 19:17:Nallely Gonzalez RN) Gen Hx Maternal Metabolic DO: No (05/12/2016 19:17:Nallely Gonzalez RN) Gen Hx Pt Father or FOB Defect: No (05/12/2016 19:17:Nallely Gonzalez RN) Gen Hx Other Genetic History: No (05/12/2016 19:17:Nallely Gonzalez RN) Gen Hx Drugs/Meds since LMP: Yes (05/12/2016 19:17:Valentina Pyle RN) Gen Hx Medications: pnv, iron (05/12/2016 19:17:Valentina Pyle RN)
--- NOTE | 2016-05-19 06:12 | L&D Current Admission ---
Current Admit Datetime Report Generated by CPN: 05/19/2016 06:00 ADMISSION INFORMATION Current Admit Date/Time: 05/14/2016 19:22 (05/14/2016 19:39:Nallely Gonzalez RN) Reason for Admission: Induction of Labor (05/14/2016 19:39:Nallely Gonzalez RN) Chief Complaint: Scheduled Induction of Labor (05/14/2016 19:41:Nallely Gonzalez RN) EGA per Dates: 40.6 (05/14/2016 19:39:QS system process) Method of Arrival: Ambulatory (05/14/2016 19:39:Nallely Gonzalez RN) Reason for Induction: Postterm (05/14/2016 19:39:Nallely Gonzalez RN) Records Available: Yes (05/14/2016 19:39:Nallely Gonzalez RN) General Admission Information: Reviewed; Updated; Confirmed (05/14/2016 19:39:Nallely Gonzalez RN) General Admission Reviewed By: DANYA Kenny (05/14/2016 19:39:Nallely Gonzalez RN) BELONGINGS/ADVANCED DIRECTIVES Valuables/Personal Effects: Purse/Wallet; Cell Phone; Jewelry (05/14/2016 19:39:Nallely Gonzalez RN) Disposition of Belongings: Kept with Patient (05/14/2016 19:39:Nallely Gonzalez RN) Advance Direct for Healthcare: No, and Wants No Information (05/14/2016 19:39:Nallely Gonzalez RN) Durable Power of Last Marker: No (05/14/2016 19:39:Nallely Gonzalez RN) Living Will: No (05/14/2016 19:39:Nallely Gonzalez RN) Organ Donor: Yes (05/14/2016 19:39:Nallely Gonzalez RN) Pt Rights Information Given: Yes (05/14/2016 19:39:Nallely Gonzalez RN) Pt Understands Pt Rights: Yes (05/14/2016 19:39:Nallley Gonzalez RN) LEARNING ASSESSMENT Knowledge Level: Understands L_D Process; Understands Care Activities; Had Pre-Hospital Education; Understands Diagnosis (05/14/2016 19:39:Nallely Gonzalez RN) Barriers to Learning: None (05/14/2016 19:39:Nallely Gonzalez RN) Learning Readiness: Motivated (05/14/2016 19:39:Nallely Gonzalez RN) Learns Best By: 1 to 1 Instruction; Reading; Videos; Demonstration (05/14/2016 19:39:Elli Suazo RN) Learning Needs: Labor and Delivery Process; Pain Management; Symptoms to Report; Treatment Plan; Medication; Diagnosis; Nutrition; Equipment; Infant Care; Community Resources (05/14/2016 19:39:Elli Suazo RN) DOMESTIC VIOLANCE SCREENING Dom Viol Threatened/Hurt: No (05/14/2016 19:39:Nallely Gonzalez RN) Hx of Abuse/Neglect past 2yrs: No (05/14/2016 19:39:Nallely Gonzalez RN) Feel Unsafe Going Home: No (05/14/2016 19:39:Nallely Gonzalez RN) Addt'l Observ Indicating Abuse: No (05/14/2016 19:39:Nallely Gonzalez RN) Reason Unable to Complete Screen: N/A, Screen Completed (05/14/2016 19:39:Nallely Gonzalez RN) Considered Personal Harm/Suicide: No (05/14/2016 19:39:Nallely Gonzalez RN) NUTRITIONAL/FUNCTIONAL SCREENING Problem with Appetite >5 Days: No (05/14/2016 19:39:Nallely Gonzalez RN) Chew/Swallow Difficulties: No (05/14/2016 19:39:Nallely Gonzalez RN) Inappropriate Wt Gain/Loss: No (05/14/2016 19:39:Nallely Gonzalez RN) Presence Skin Breakdown/Ulcer: No (05/14/2016 19:39:Nallely Gonzalez RN) Special Diet: No (05/14/2016 19:39:Nallely Gonzalez RN) Pt Requests Paint Trimmer Pipe Bowls Visit: No (05/14/2016 19:39:Nallely Gonzalez RN) Hx of Any of the Following?: N/A (05/14/2016 19:39:Nallely Gonzalez RN) New Diagnosis of: N/A (05/14/2016 19:39:Nallely Gonzalez RN) Requires Assist w/Ambulation: No (05/14/2016 19:39:Nallely Gonzalez RN) Uses Assist Device to Ambulate: No (05/14/2016 19:39:Nallely Gonzalez RN) Pt Requires Help w/ADL's: No (05/14/2016 19:39:Nallely Gonzalez RN)
--- NOTE | 2016-05-19 14:11 | Antepartum Discharge Summary ---
Antepartum DC Datetime Report Generated by CPN: 05/19/2016 14:11 Diet: Regular (05/13/2016 10:44:Carlos Bradley RN) Activity: Normal Activity (05/13/2016 10:44:Carlos Bradley RN) Instructions Given To: pt (05/13/2016 10:44:Carlos Bradley RN) Instructions Understood: Patient Verbalized Understanding; Support Person Verbalized Understanding (05/13/2016 10:44:Carlos Bradley RN) Referrals: None (05/13/2016 10:44:Carlos Bradley RN) Educational Materials- Other: Kick Counts Early Labor Signs (05/13/2016 10:44:Carlos Bradley RN) Discharged AMA: No (05/13/2016 10:44:Carlos Bradley RN) Discharge Date/Time: 05/13/2016 11:00 (05/13/2016 10:44:Carlos Bradley RN) Discharged To: Home (05/13/2016 10:44:Carlos Bradley RN) Discharge Provider Name: KURT (05/13/2016 10:44:Carlos Bradley RN) Accompanied By: Significant other (05/13/2016 10:44:Carlos Bradley RN) Discharge Method: Ambulatory (05/13/2016 10:44:Carlos Bradley RN) Condition: Stable (05/13/2016 10:44:Carlos Bradley RN) Follow Up With: [facility] (05/13/2016 10:44:Carlos Bradley RN) Follow Up On: As Scheduled (05/13/2016 10:44:Carlos Bradley RN) Follow Up Phone Number: [facility] - (05/13/2016 10:44:Carlos Bradley RN) Comments: Pt discharged and signed up for IOL Post Dates 05/14 for cervidil. Pt verbalizes understanding, no distress noted, understands s/s to report, when to return to hospital for evaluation, to keep scheduled appointments. Agrees with plan of care, ambulates without difficulty, states relief from pain, declines pain medication at discharge. (05/13/2016 10:44:Carlos Bradley RN) Contractions: Contractions or cramps become more frequent than 8 in one hour or 4 in 20 minutes; Regular painful contractions every 5 minutes or less for one hour. Time your contractions from the beginning of one to the beginning of the next (05/13/2016 10:44:Carlos Bradley RN) Pressure: Pressure in your vagina or lower abdomen that may feel like the baby is pushing down (05/13/2016 10:44:Carlos Bradley RN) Period Like Cramps: Period-like cramps or low dull backache that may come and go (05/13/2016 10:44:Carlos Bradley RN) Cramps/Diarrhea: Abdominal cramps that may be accompanied by diarrhea (05/13/2016 10:44:Carlos Bradley RN) Gush of Fluid/Blood: Gush of fluid or blood from your vagina (it is normal to have spotting after vaginal exam or intercourse) (05/13/2016 10:44:Carlos Bradley RN) Vaginal Discharge: Change in the type or amount of vaginal discharge (05/13/2016 10:44:Carlos Bradley RN) Decreased Movement: Your baby is not moving as much as usual- 4 movements in 1 hour after drinking and resting on side (05/13/2016 10:44:Carlos Bradley RN) Temperature: Temperature greater than 100.0(F) orally (05/13/2016 10:44:Carlos Bradley RN) Hypertension Signs/Symptoms: Severe headache which is not relieved 30 minutes after taking Tylenol(Acetaminophen); Blurry vision or spots before your eyes; Severe heartburn or pain on the upper right side of your abdomen that is not relieved by an antacid; Increased swelling in your face, hands or feet (05/13/2016 10:44:Carlos Bradley RN) Urinary Output: Decreased urinary output or dark colored urine (05/13/2016 10:44:Carlos Bradley RN) N/V [place]/Crackers: Keep dry toast/crackers with you to [facility] on (05/13/2016 10:44:Carlos Bradley RN) N/V Frequent Meals: Eat small frequent meals (05/13/2016 10:44:Carlos Bradley RN) N/V Empty Stomach: Try to keep something in your stomach (don't let your stomach get empty) (05/13/2016 10:44:Carlos Bradley RN) N/V Time Getting Up: Take your time getting up (05/13/2016 10:44:Carlos Bradley RN) N/V Avoid Smells: Avoid smells that make you feel sick (05/13/2016 10:44:Carlos Bradley RN) Travel Seatbelts: Wear seatbelts or safety/lap belts (05/13/2016 10:44:Carlos Bradley RN) Travel Walk Frequently: Walk frequently, every 1-2 hours (05/13/2016 10:44:Carlos Bradley RN) Travel Comfort Clothes: Wear clothing that does not constrict and comfortable shoes (05/13/2016 10:44:Carlos Bradley RN) Travel Light Snack: Keep a light snack (e.g. dry crackers) with you at all times to prevent nausea (05/13/2016 10:44:Carlos Bradley RN) Travel Hydration: Drink plenty of water, low sodium and noncaffeinated drinks (05/13/2016 10:44:Carlos Bradley RN) Travel Medications: DO NOT take any medication that is not approved by your physician first (05/13/2016 10:44:Carlos Bradley RN) Travel PN Records: Always keep a copy of your medical record with you just in case (05/13/2016 10:44:Carlos Bradley RN) Edema Avoid Standing: Avoid standing for long periods, keep legs up when you can (05/13/2016 10:44:Carlos Bradley RN) Edema Rest on Side: When resting, lie on your side (left is best) (05/13/2016 10:44:Carlos Bradley RN) Edema Limit Sodium: Limit the amount of salty foods you eat (05/13/2016 10:44:Carlos Bradley RN) Edema Support Hose: Try to wear support hose as much as possible (05/13/2016 10:44:Carlos Bradley RN) Exercise Overheating: Avoid situations that would cause you to become overheated (05/13/2016 10:44:Carlos Bradley RN) Exercise Weather: Exercise outdoors only if the weather is reasonable and not too hot (05/13/2016 10:44:Carlos Bradley RN) Exercise Exertion: Do not over exert yourself when you exercise (05/13/2016 10:44:Carlos Bradley RN) Exercise Hydration: Drink plenty of fluids, especially water (05/13/2016 10:44:Carlos Bradley RN) Exercise Support: Wear good support hose, bra and shoes when exercising (05/13/2016 10:44:Carlos Bradley RN) Varicose Veins Instructions: Do not stand for long periods of time (05/13/2016 10:44:Carlos Bradley RN) Varicose Veins Elevate Sit: Try to keep your legs elevated when you are sitting (05/13/2016 10:44:Carlos Bradley RN) Varicose Veins Elevate Lying: When lying down, keep your legs elevated (05/13/2016 10:44:Carlos Bradley RN) Varicise Veins Non Binding: When wearing stockings or socks, make sure they are not too tight and bind your legs (05/13/2016 10:44:Carlos Bradley RN) Varicose Veins Support: Wear support hose/stockings at all times (05/13/2016 10:44:Carlos Bradley RN) Varicose Veins Periodic Move: If you have a job where you sit a lot, get up periodically and walk around (05/13/2016 10:44:Carlos Bradley RN)
--- NOTE | 2016-05-19 14:12 | L&D Current Admission ---
Current Admit Datetime Report Generated by [facility]: 05/19/2016 14:12 Chief Complaint: Brown/pink discharge this morning. Pt was seen in office yesterday. (05/13/2016 10:10:Carlos Bradley RN)
--- NOTE | 2016-05-19 14:13 | L&D Discharge Summary ---
OB Discharge Summary Datetime Report Generated by CPN: 05/19/2016 14:13 DISCHARGE DIAGNOSIS Diagnosis/Symptoms: Other Diagnoses/Symptoms Other: Not in Labor Gestation: 41.0 Number of Babies in Womb: 1 Parity: 0 DIET/ACTIVITY/RESTRICTIONS Diet: Regular Activity: Normal Activity TEACHING/INSTRUCTIONS/REFERRALS Instructions Given To: pt Instructions Understood: Patient Verbalized Understanding; Support Person Verbalized Understanding Referrals: None Educational Materials- Other: Kick Counts Early Labor Signs DISCHARGE INFORMATION Discharged AMA: No Discharge Date/Time: 05/13/2016 11:00 Discharged To: Home Discharge Provider Name: EMMEL Accompanied By: Significant other Discharge Method: Ambulatory Condition: Stable FOLLOW UP INFORMATION Follow Up With: [facility] Follow Up On: As Scheduled Follow Up Phone Number: [facility] - Comments: Pt discharged and signed up for IOL Post Dates 05/14 for cervidil. Pt verbalizes understanding, no distress noted, understands s/s to report, when to return to hospital for evaluation, to keep scheduled appointments. Agrees with plan of care, ambulates without difficulty, states relief from pain, declines pain medication at discharge. GENERAL INSTR-CALL PROVIDER IF: Contractions: Contractions or cramps become more frequent than 8 in one hour or 4 in 20 minutes; Regular painful contractions every 5 minutes or less for one hour. Time your contractions from the beginning of one to the beginning of the next Pressure: Pressure in your vagina or lower abdomen that may feel like the baby is pushing down Period Like Cramps: Period-like cramps or low dull backache that may come and go Cramps/Diarrhea: Abdominal cramps that may be accompanied by diarrhea Gush of Fluid/Blood: Gush of fluid or blood from your vagina (it is normal to have spotting after vaginal exam or intercourse) Vaginal Discharge: Change in the type or amount of vaginal discharge Decreased Movement: Your baby is not moving as much as usual- 4 movements in 1 hour after drinking and resting on side Temperature: Temperature greater than 100.0(F) orally
--- NOTE | 2016-05-19 14:13 | L&D Flow Sheet ---
LD Flowsheet Datetime Report Generated by CPN: 05/19/2016 14:13 Datetime: 05/13/2016 10:53 NBP Sys/Pricilla/Mean (mmHg): 122 (QS system process) : 61 (QS system process) : 86 (QS system process) Pulse: 86 (QS system process) Datetime: 05/13/2016 10:42 Communication Comments: Discharge orders obtained from A Emmel CNM; IOL consents signed for cervidil 05/14/16. Provider reviewed strip and all lab results and vs. (Carlos Kirk, DANYA) Datetime: 05/13/2016 10:38 NBP Sys/Pricilla/Mean (mmHg): 129 (QS system process) : 78 (QS system process) : 96 (QS system process) Pulse: 93 (QS system process) Datetime: 05/13/2016 10:32 Dilatation (cm): 1.0 (Carlos Bradley RN) Effacement (%): 80 (Carlos Bradley RN) Station: -2 (Carlos Bradley RN) Exam by: A Iraj CNLanette (Carlos Bradley RN) Vaginal Bleeding: None (Carlos Bradley RN) Datetime: 05/13/2016 10:30 Communication Comments: A Iraj CNM at bedside for assessment (Carlos Bradley RN) Datetime: 05/13/2016 10:23 NBP Sys/Pricilla/Mean (mmHg): 124 (QS system process) : 74 (QS system process) : 87 (QS system process) Pulse: 89 (QS system process) Datetime: 05/13/2016 10:10 Pain Scale: 3 (Carlos Bradley RN) Pain Presence: Intermittent (Carlos Bradley RN) Pain Type: Cramping (Carlos Bradley RN) Pain Location: Abdomen (Carlos Bradley RN) Pain Relief Measures: Comfort Measures (Carlos Bradley RN) Pain Coping: Declines Medication or Epidural (Carlos Bradley RN) Vaginal Bleeding: None (Carlos Bradley RN) Level of Consciousness: Fully Conscious (Carlos Bradley RN) DTR's/Clonus: DTRs 1+; No Clonus (Carlos Bradley RN) Headache: Denies (Carlos Bradley RN) Breath Sounds, Left: Clear and Equal (Carlos Bradley RN) Breath Sounds, Right: Clear and Equal (Carlos Bradley RN) Nausea/Vomiting: Denies (Carlos Bradley RN) RUQ Epigastric Pain: Denies (Carlos Bradley RN) Patient Position/Activity: Left Lateral (Carlos Bradley RN) Comfort Measures: Breathing/Relaxation (Carlos Bradley RN) I/O Interventions: Clear Liquids Given; Up to BR (Carlos Bradley RN) Instructional Method: Demo; Verbal; Patient Instructed; Family/Support Person Instructed; Verbalized Understanding (Carlos Bradley RN) Plan of Care: Plan of Care Discussed (Carlos Bradley RN) Unit Routine: [place] to Room; Call [place]; Bed; Waiting Areas; Phone/Cell Phone Use; Unit Personnel; Handwashing; Flu/Illness Precautions; Monitoring; Safety/Fall Risk Prevention; Bathroom Privileges (Carlos Bradley RN) Labor/Induction: Labor Stages (Carlos Bradley RN) Pain Management: Pain Scale/Goals; Comfort Measures (Carlos Bradley RN) Related: Common Discomforts of ; Maternal Physical Changes; Maternal Emotional Changes; Nutrition; Hydration; Activity and Rest (Carlos Bradley RN) Datetime: 05/13/2016 10:09 Communication Comments: A Iraj CNM called and notified of pt complaint of bleeding, hx, pain, vs. States she will come to assess pt. (Carlos Bradley RN) Datetime: 05/13/2016 10:08 NBP Sys/Pricilla/Mean (mmHg): 122 (QS system process) : 96 (QS system process) : 103 (QS system process) Pulse: 98 (QS system process)
== END 2016-05-13 11:01 | disposition home or self-care (01) ==
LOC: LC 09:47
PROVIDERS: ATTEND Specialist
PROC: 4A1HXCZ Monitoring of Products of Conception, Cardiac Rate, External Approach (ICD-10-PCS; principal; 2016-05-13)
DX: Z34.93 Encounter for supervision of normal pregnancy, unspecified, third trimester (principal); Z3A.40 40 weeks gestation of pregnancy
CPT/HCPCS: 59025; 80307; 81005

== ENCOUNTER 2016-05-14 19:12 | Inpatient (IN) | payer MEDICAID ==
--- NOTE | 2016-05-14 19:17 | L&D Progress Notes ---
PROGRESS NOTES Datetime Report Generated by CPN: 05/14/2016 19:17 PROGRESS NOTE Plan: Anticipate Vaginal Delivery Informed Consent Obtained: Induction of Labor; Risks, Benefits and Alternatives Discussed Vital Signs : Reviewed Comment: pt set up for cervical ripening 05/14/2016 cervix mildly soft induction paperwork reviewed with pt and fob r/b/a d/c home with precautions reviewed kick counts and labor precautions VAGINAL EXAM Dilatation: 2 Effacement: 80 Station: -2 FETUS A FHR - Baseline: 130 Monitoring: External US Variability: Moderate 6-25bpm Accelerations: 15X15 FHR Category: Category I : 40.5 SIGNATURE SIGNATURE: [id number] SIGNATURE: [id number] SIGNATURE: [id number] Assignment: Nallely Hackett MD Signature: with User ID: [email or web address] : with User ID: [email or web address]
[2016-05-14] MEDS ORDERED: DINOPROSTONE 10 MG VAGINAL INSERT.SR PV PRN (19:18)
[2016-05-14] MEDS ORDERED: OXYTOCIN/NORMAL SALINE 1,000 ML IV PRN (19:18)
[2016-05-14] MEDS ORDERED: RINGERS SOLUTION,LACTATED 1,000 ML IV PRN (19:18)
--- NOTE | 2016-05-14 20:01 | L&D Flow Sheet ---
LD Flowsheet Datetime Report Generated by CPN: 05/14/2016 20:00 Datetime: 05/14/2016 19:41 Pain Pain Scale: 0 (Nallely Gonzalez, RN) Pain Presence: None/Denies (Nallely Gonzalez, RN) Pain Type: N/A (Nallely Gonzalez, RN) Pain Goal: 0 (Nallely Gonzalez, RN) Vaginal Exam Vaginal Bleeding: Normal Show (Nallely Field, RN) Maternal Assessment Level of Consciousness: Fully Conscious (Nallely Field, RN) DTR's/Clonus: DTRs 2+; No Clonus (Nallely Field, RN) Headache: Denies (Nallely Field, RN) Breath Sounds, Left: Clear and Equal (Nallely Field, RN) Breath Sounds, Right: Clear and Equal (Nallely Field, RN) Nausea/Vomiting: Denies (Nallely Field, RN) RUQ Epigastric Pain: Denies (Nallely Field, RN) Patient Care IV/Blood Work: IV Started; IV Bolus Started; IV Infusing per Order; New IV Bag Hung; IV Bag Number @ 1 (Nallely Gonzalez RN) Teaching Instructional Method: Verbal; Patient Instructed; Family/Support Person Instructed; Verbalized Understanding (Nallely Gonzalez RN) Plan of Care: Plan of Care Discussed; Vaginal Delivery; Induction (Nallely Gonzalez RN) Unit Routine: [place] to Room; Call [place]; Bed; Visiting Policy; Waiting Areas; Infant Security; Phone/Cell Phone Use; Photography; Unit Personnel; Handwashing; Flu/Illness Precautions; Monitoring; IV Pumps; Safety/Fall Risk Prevention; Diet/Nutrition Services; Bathroom Privileges (Nallely Gonzalez RN) Datetime: 05/14/2016 19:34 Vital Signs NBP Sys/Pricilla/Mean (mmHg): 129 (QS system process) : 75 (QS system process) : 96 (QS system process) Pulse: 95 (QS system process)
[2016-05-14 20:06] LABS: ABSOLUTE EOSINOPHILS # (AUTO) 0.1 10^3/uL (0.0-0.6); ABSOLUTE LYMPHOCYTES (AUTO) 1.3 10^3/uL (0.5-4.7); ABSOLUTE MONOCYTES (AUTO) 0.8 10^3/uL (0.1-1.4); ABSOLUTE NEUT (AUTO) 4.7 10^3/uL (1.7-8.2); BASOPHILS % (AUTO) 0.4 % (0-2); EOSINOPHILS % (AUTO) 1.1 % (0-6); HEMATOCRIT 29.2 % (36.0-47.0); HEMOGLOBIN 10.1 g/dL (12.0-15.5); HGB HCT DIFFERENCE 1.1; LYMPHOCYTES % (AUTO) 18.4 % (13-45); MEAN CORPUSCULAR HGB CONC 34.7 g/dL (32.0-36.0); MEAN CORPUSCULAR VOLUME 81 fl (80-97); MONOCYTES % (AUTO) 11.1 % (3-13); RED BLOOD COUNT 3.62 10^6/uL (3.72-5.28); RED CELL DISTRIBUTION WIDTH 15.1 % (11.5-14.0); WHITE BLOOD COUNT 6.9 10^3/uL (4.0-10.5)
[2016-05-14 20:06] LABS: APPEARANCE,URINE CLEAR; BILIRUBIN,URINE NEGATIVE (NEGATIVE); GLUCOSE, URINE NEGATIVE (NEGATIVE); KETONES,URINE NEGATIVE (NEGATIVE); LEUKOCYTE ESTERASE,URINE SMALL (NEGATIVE); NITRITE,URINE NEGATIVE (NEGATIVE); PROTEIN,URINE NEGATIVE (NEGATIVE); URINE SPECIFIC GRAVITY 1.016; UROBILINOGEN,URINE NEGATIVE mg/dL (<2.0)
[2016-05-14] MEDS ORDERED: DINOPROSTONE 10 MG VAGINAL INSERT.SR ONE (20:13)
[2016-05-14 20:22] LABS: URINE BARBITURATES SCREEN NEGATIVE; URINE METHADONE SCREEN NEGATIVE; URINE PHENCYCLIDINE SCREEN NEGATIVE
[2016-05-14] MEDS: RINGERS SOLUTION,LACTATED 1,000 ML IV PRN (20:22)
[2016-05-15] MEDS ORDERED: DINOPROSTONE 10 MG VAGINAL INSERT.SR PV PRN (01:30)
[2016-05-15] MEDS ORDERED: ZOLPIDEM TARTRATE 5 MG TABLET ONE (01:34)
[2016-05-15] MEDS ORDERED: DINOPROSTONE 10 MG VAGINAL INSERT.SR ONE (01:34)
[2016-05-15] MEDS: RINGERS SOLUTION,LACTATED 1,000 ML IV PRN (01:36)
[2016-05-15] MEDS ORDERED: ZOLPIDEM TARTRATE 5 MG TABLET PO ONE (02:00)
[2016-05-15] MEDS ORDERED: PROMETHAZINE HCL INJ 25 MG/1 ML VIAL ONE ×2 (04:40→12:47)
--- NOTE | 2016-05-15 04:46 | L&D Admission Assessment ---
LD ADM ASMT Datetime Report Generated by CPN: 05/15/2016 04:45 PATIENT ASSESSMENT Assessment Type: Admission Assessment (05/14/2016 19:41:Nallely Gonzalez, RN) Assessment Type: Admission Assessment (05/13/2016 10:10:Carlos Rondoneet, RN) WEIGHT Weight (lb): 220 (05/14/2016 20:06:QS system process) Weight (lb): 220 (05/13/2016 10:19:QS system process) Weight (kg): 100.0 (05/14/2016 20:06:QS system process) Weight (kg): 100.0 (05/13/2016 10:19:QS system process) Total Wt Gain (lb): 32 (05/14/2016 20:06:QS system process) Total Wt Gain (lb): 32 (05/13/2016 10:19:QS system process) Wt Gain (kg): 14.5 (05/14/2016 20:06:QS system process) Wt Gain (kg): 14.5 (05/13/2016 10:19:QS system process) BMI: 36.6 (05/14/2016 20:06:QS system process) PAIN Pain Scale: 0 (05/14/2016 19:41:Nallely Gonzalez RN) Pain Scale: 3 (05/13/2016 10:10:Carlos Bradley RN) Pain Presence: None/Denies (05/14/2016 19:41:Nallely Gonzalez RN) Pain Presence: Intermittent (05/13/2016 10:10:Carlos Bradley RN) Pain Type: N/A (05/14/2016 19:41:Nallely Gonzalez RN) Pain Type: Cramping (05/13/2016 10:10:Carlos Bradley RN) Pain Location: Abdomen (05/13/2016 10:10:Carlos Bradley RN) Pain Goal: 0 (05/14/2016 19:41:Nallely Gonzalez RN) CONTRACTIONS Frequency (min): Irritability (05/15/2016 02:00:Nallely Field, RN) Frequency (min): x2 (05/15/2016 01:30:Nallely Field, RN) Frequency (min): Irritability (05/15/2016 01:00:Nallely Field, RN) Frequency (min): x2 (05/15/2016 00:30:Nallely Field, RN) Frequency (min): x3 (05/15/2016 00:00:Nallely Field, RN) Frequency (min): x2 (05/14/2016 23:30:Nallely Field, RN) Frequency (min): 1-2 (05/14/2016 23:00:Nallely Field, RN) Frequency (min): Irritability (05/14/2016 22:30:Nallely Field, RN) Frequency (min): Irritability (05/14/2016 22:00:Nallely Field, RN) Frequency (min): Irritability (05/14/2016 21:30:Nallely Field, RN) Frequency (min): x1 (05/14/2016 21:00:Nallely Field, RN) Frequency (min): Irritability (05/14/2016 20:30:Nallely Field, RN) Frequency (min): Irritability (05/14/2016 20:00:Nallely Field, RN) Duration (sec): 50 (05/15/2016 01:30:Nallely Field, RN) Duration (sec): 60-90 (05/15/2016 00:30:Nallely Field, RN) Duration (sec): 50-100 (05/15/2016 00:00:Nallely Field, RN) Duration (sec): 60 (05/14/2016 23:30:Nallely Field, RN) Duration (sec): 40-80 (05/14/2016 23:00:Nallely Gonzalez RN) Duration (sec): 60 (05/14/2016 21:00:Nallely Gonzalez RN) Quality: Mild (05/15/2016 02:00:Nallely Gonzalez RN) Quality: Mild (05/15/2016 01:30:Nallely Gonzalez RN) Quality: Mild (05/15/2016 01:00:Nallely Gonzalez RN) Quality: Mild (05/15/2016 00:30:Nallely Gonzalez RN) Quality: Mild (05/15/2016 00:00:Nallely Gonzalez RN) Quality: Mild (05/14/2016 23:30:Nallely Gonzalez RN) Quality: Mild (05/14/2016 23:00:Nallely Gonzalez RN) Resting Tone [place]: Relaxed (05/15/2016 02:00:Nallely Gonzalez RN) Resting Tone [place]: Relaxed (05/15/2016 01:30:Nallely Gonzalez RN) Resting Tone [place]: Relaxed (05/15/2016 01:00:Nallely Gonzalez RN) Resting Tone [place]: Relaxed (05/15/2016 00:30:Nallely Gonzalez RN) Resting Tone [place]: Relaxed (05/15/2016 00:00:Nallely Gonzalez RN) Resting Tone [place]: Relaxed (05/14/2016 23:30:Nallely Gonzalez RN) Resting Tone [place]: Relaxed (05/14/2016 23:00:Nallely Gonzalez RN) Resting Tone [place]: Relaxed (05/14/2016 22:30:Nallely Gonzalez RN) Resting Tone [place]: Relaxed (05/14/2016 22:00:Nallely Gonzalez RN) Resting Tone [place]: Relaxed (05/14/2016 21:30:Nallely Gonzalez RN) Resting Tone [place]: Relaxed (05/14/2016 21:00:Nallely Gonzalez RN) Resting Tone [place]: Relaxed (05/14/2016 20:30:Nallely Gonzalez RN) Resting Tone [place]: Relaxed (05/14/2016 20:00:Nallely Gonzalez RN) VAGINAL EXAM Dilatation (cm): 1.0 (05/14/2016 20:25:Nallely Gonzalez RN) Dilatation (cm): 1.0 (05/13/2016 10:32:Carlos Bradley RN) Effacement (%): 60 (05/14/2016 20:25:Nallely Gonzalez RN) Effacement (%): 80 (05/13/2016 10:32:Carlos Bradley RN) Station: -2 (05/14/2016 20:25:Nallely Gonzalez RN) Station: -2 (05/13/2016 10:32:Carlos Bradley RN) NEURO Level of Consciousness: Fully Conscious (05/14/2016 19:41:Nallely Gonzalez RN) Level of Consciousness: Fully Conscious (05/13/2016 10:10:Carlos Bradley RN) DTR's/Clonus: DTRs 2+; No Clonus (05/14/2016 19:41:Nallely Gonzalez RN) DTR's/Clonus: DTRs 1+; No Clonus (05/13/2016 10:10:Carlos Bradley RN) Headache: Denies (05/14/2016 19:41:Nallely Gonzalez RN) Headache: Denies (05/13/2016 10:10:Carlos Bradley RN) Dizziness: No (05/14/2016 19:41:Nallely Gonzalez RN) Dizziness: No (05/13/2016 10:10:Carlos Bradley RN) Blurred Vision: No (05/14/2016 19:41:Nallely Gonzalez RN) Blurred Vision: No (05/13/2016 10:10:Carlos Bradley RN) Extremity Numbness/Tingling : None (05/14/2016 19:41:Nallely Gonzalez RN) Extremity Numbness/Tingling : None (05/13/2016 10:10:Carlos rBadley RN) Extremity Movement: Full Range of Motion (05/14/2016 19:41:Nallely Gonzalez RN) Extremity Movement: Full Range of Motion (05/13/2016 10:10:Carlos Bradley RN) CARDIOVASCULAR Heart Rhythm: Regular (05/14/2016 19:41:Nallely Gonzalez RN) Heart Rhythm: Regular (05/13/2016 10:10:Carlos Bradley RN) Nailbeds: [place] (05/14/2016 19:41:Nallely Gonzalez RN) Nailbeds: [place] (05/13/2016 10:10:Carlos Bradley RN) Capillary Refill: Less than 3 Seconds (05/14/2016 19:41:Nallely Gonzalez RN) Capillary Refill: Less than 3 Seconds (05/13/2016 10:10:Carlos Bradley RN) Lower Extremities Edema: None (05/14/2016 19:41:Nallely Gonzalez RN) Lower Extremities Edema: Bilateral Lower Extremities (05/13/2016 10:10:Carlos Bradley RN) Lower Extremities Edema Degree: None (05/14/2016 19:41:Nallely Gonzalez RN) Lower Extremities Edema Degree: 1+ (05/13/2016 10:10:Carlos Bradley RN) Upper Extremities Edema: None (05/14/2016 19:41:Nallely Gonzalez RN) Upper Extremities Edema: None (05/13/2016 10:10:Carlos Bradley RN) Upper Extremities Edema Degree: None (05/14/2016 19:41:Nallely Gonzalez RN) Upper Extremities Edema Degree: None (05/13/2016 10:10:Carlos Bradley RN) Facial Edema: None (05/14/2016 19:41:Nallely Gonzalez RN) Facial Edema: None (05/13/2016 10:10:Carlos Bradley RN) Angel's Sign Left Leg: Negative (05/14/2016 19:41:Nallely Gonzalez RN) Angel's Sign Left Leg: Negative (05/13/2016 10:10:Carlos Bradley RN) Angel's Sign Right Leg: Negative (05/14/2016 19:41:Nallely Gonzalez RN) Angel's Sign Right Leg: Negative (05/13/2016 10:10:Carlos Bradley RN) DVT RISK ASSESSMENT DVT Risk Age: Age less than 41 years (05/14/2016 19:41:Nallely Gonzalez RN) DVT Risk Age: Age less than 41 years (05/13/2016 10:10:Carlos Bradley RN) DVT Risk BMI: BMI 31 to 40 (05/14/2016 19:41:Nallely Gonzalez RN) DVT Risk BMI: BMI 31 to 40 (05/13/2016 10:10:Carlos Bradley RN) DVT Risk Surgery: None Applicable (05/14/2016 19:41:Nallely Gonzalez RN) DVT Risk Surgery: None Applicable (05/13/2016 10:10:Carlos Bradley RN) DVT Risk Other: Women Only- or (<1 month) (05/14/2016 19:41:Nallely Gonzalez RN) DVT Risk Other: Women Only- or (<1 month) (05/13/2016 10:10:Carlos Bradley RN) DVT Risk Total: 2 (05/14/2016 19:41:QS system process) DVT Risk Total: 2 (05/13/2016 10:10:QS system process) DVT Risk Text: Moderate Risk (10-20%) - Consider stockings, compresssion device, pharmacological therapy per hospital policy (05/14/2016 19:41:QS system process) DVT Risk Text: Moderate Risk (10-20%) - Consider stockings, compresssion device, pharmacological therapy per hospital policy (05/13/2016 10:10:QS system process) RESPIRATORY Respiratory Effort: Unlabored; Regular Rhythm; Equal Expansion (05/14/2016 19:41:Nallely Gonzalez RN) Respiratory Effort: Unlabored; Regular Rhythm; Equal Expansion (05/13/2016 10:10:Carlos Bradley RN) Breath Sounds, Left: Clear and Equal (05/14/2016 19:41:Nallely Gonzalez RN) Breath Sounds, Left: Clear and Equal (05/13/2016 10:10:Carlos Bradley RN) Breath Sounds, Right: Clear and Equal (05/14/2016 19:41:Nallely Gonzalez RN) Breath Sounds, Right: Clear and Equal (05/13/2016 10:10:Carlos Bradley RN) Cough Productivity: None (05/14/2016 19:41:Nalelly Gonzalez RN) Cough Productivity: None (05/13/2016 10:10:Carlos Bradley RN) GASTROINTESTINAL Nausea/Vomiting: Denies (05/14/2016 19:41:Nallely Gonzalez RN) Nausea/Vomiting: Denies (05/13/2016 10:10:Carlos Bradley RN) Bowel Sounds: Normoactive (05/14/2016 19:41:Nallely Gonzalez RN) Bowel Sounds: Normoactive (05/13/2016 10:10:Carlos Bradley RN) RUQ Epigastric Pain: Denies (05/14/2016 19:41:Nallely Gonzalez RN) RUQ Epigastric Pain: Denies (05/13/2016 10:10:Carlos Bradley RN) Bowel Patterns: Soft, Formed Stool (05/14/2016 19:41:Nallely Gonzalez RN) Hemorrhoids: None (05/14/2016 19:41:Nallely Gonzalez RN) Hemorrhoids: None (05/13/2016 10:10:Carlos Bradley RN) Diet Type: Regular diet (05/14/2016 19:41:Nallely Gonzalez RN) Last Meal: 05/14/2016 17:30 (05/14/2016 19:41:Nallely Gonzalez RN) Last Meal: 05/13/2016 09:00 (05/13/2016 10:10:Carlos Bradley RN) GENITOURINARY Bladder: Nondistended (05/14/2016 19:41:Nallely Gonzalez RN) Bladder: Nondistended (05/13/2016 10:10:Carlos Bradley RN) Frequency of Urination: No (05/14/2016 19:41:Nallely Gonzalez RN) Frequency of Urination: No (05/13/2016 10:10:Carlos Bradley RN) Urination Burning: No (05/14/2016 19:41:Nallely Gonzalez RN) Urination Burning: No (05/13/2016 10:10:Carlos Bradley RN) CVA Tenderness: No (05/14/2016 19:41:Nallely Gonzalez RN) CVA Tenderness: No (05/13/2016 10:10:Carlos Bradley RN) Vaginal Bleeding: None (05/13/2016 10:10:Carlos Bradley RN) Vaginal Discharge Amount: None (05/13/2016 10:10:Carlos Bradley RN) Vaginal Discharge Color: N/A (05/13/2016 10:10:Carlos Bradley RN) Vaginal Discharge Odor: Non-Odorous (05/13/2016 10:10:Carlos Kirk, RN) Vaginal Discharge Character: None (05/13/2016 10:10:Carlos Reddyt, RN) INTEGUMENTARY Skin Color: Normal for Race (05/14/2016 19:41:Nallely Gonzalez RN) Skin Color: Normal for Race (05/13/2016 10:10:Carlos Bradley, RN) Skin Temperature: Warm (05/14/2016 19:41:Nallely Gonzalez RN) Skin Temperature: Warm (05/13/2016 10:10:Carlos Kirk, RN) Skin Moisture: Dry (05/14/2016 19:41:Nallely Gonzalez RN) Skin Moisture: Dry (05/13/2016 10:10:Carlos Kirk, RN) LUIS DANIEL SKIN ASSESSMENT Luis Daniel Scale Sensory Perception: No Impairment- Responds to verbal commands. Has no sensory deficit which would limit ability to feel or voice pain or discomfort (05/14/2016 19:41:Nallely Gonzalez RN) Luis Daniel Scale Sensory Perception: No Impairment- Responds to verbal commands. Has no sensory deficit which would limit ability to feel or voice pain or discomfort (05/13/2016 10:10:Carlos Bradley RN) Luis Daniel Scale Moisture: Rarely Moist- Skin is usually dry. Linen only requires changing at routine intervals (05/14/2016 19:41:Nallely Gonzalez RN) Luis Daniel Scale Moisture: Rarely Moist- Skin is usually dry. Linen only requires changing at routine intervals (05/13/2016 10:10:Carlos Bradley RN) Luis Daniel Scale Activity: Walks Frequently- Walks outside the room at least twice a day and inside room at least every 2 hours during the day. (05/14/2016 19:41:Nallely Gonzalez RN) Luis Daniel Scale Activity: Walks Frequently- Walks outside the room at least twice a day and inside room at least every 2 hours during the day. (05/13/2016 10:10:Carlos Bradley RN) Luis Daniel Scale Mobility: No Limitations- Makes major and frequent changes in position without assistance (05/14/2016 19:41:Nallely Gonzalez RN) Luis Daniel Scale Mobility: No Limitations- Makes major and frequent changes in position without assistance (05/13/2016 10:10:Carlos Bradley RN) Luis Daniel Scale Nutrition: Excellent- Eats most of every meal. Never refuses a meal. Usually eats a total of 4 or more servings of meat and dairy products. Occasionally eats between meals. Does not require supplementation (05/14/2016 19:41:Nallely Gonzalez RN) Luis Daniel Scale Nutrition: Excellent- Eats most of every meal. Never refuses a meal. Usually eats a total of 4 or more servings of meat and dairy products. Occasionally eats between meals. Does not require supplementation (05/13/2016 10:10:Carlos Bradley RN) Luis Daniel Scale Friction and Shear: No Apparent Problem- Moves in bed and in chair independently and has sufficient muscle strength to lift up completely during move. Maintains good position in bed or chair at all times (05/14/2016 19:41:Nallely Gonzalez RN) Luis Daniel Scale Friction and Shear: No Apparent Problem- Moves in bed and in chair independently and has sufficient muscle strength to lift up completely during move. Maintains good position in bed or chair at all times (05/13/2016 10:10:Carlos Bradley RN) Luis Daniel Scale Total: 23 (05/14/2016 19:41:QS system process) Luis Daniel Scale Total: 23 (05/13/2016 10:10:QS system process) Luis Daniel Scale Risk: No Risk of Pressure Ulcer Noted at this Time (05/14/2016 19:41:QS system process) Luis Daniel Scale Risk: No Risk of Pressure Ulcer Noted at this Time (05/13/2016 10:10:QS system process) SUPPORT Family Support: Significant Other supportive, at bedside frequently (05/14/2016 19:41:Nallely Gonzalez RN) Family Support: Significant Other supportive, at bedside frequently (05/13/2016 10:10:Carlos Bradley RN) Emotional State: Calm/Relaxed (05/14/2016 19:41:Nallely Gonzalez RN) Emotional State: Calm/Relaxed (05/13/2016 10:10:Carlos Bradley RN) SAFETY Call [place] Within Reach: Yes (05/14/2016 19:41:Nallely Gonzalez RN) Call [place] Within Reach: Yes (05/13/2016 10:10:Carlos Bradley RN) Side Rails Up: Yes (05/14/2016 19:41:Nallely Gonzalez RN) Side Rails Up: Yes (05/13/2016 10:10:Carlos Bradley RN) Bed Wheels Locked: Yes (05/14/2016 19:41:Nallely Gonzalez RN) Bed Wheels Locked: Yes (05/13/2016 10:10:Carlos Bradley RN) Arm Bands Present: Yes (05/14/2016 19:41:Nallely Gonzalez RN) Arm Bands Present: Yes (05/13/2016 10:10:Carlos Bradley RN) Isolation: [place] (05/14/2016 19:41:Nallely Gonzalez RN) Isolation: [place] (05/13/2016 10:10:Carlos Bradley RN) FALL SCREEN Fall Risk History of Falling: (0) No (05/14/2016 19:41:Nallely Gonzalez RN) Fall Risk History of Falling: (0) No (05/13/2016 10:10:Carlos Bradley RN) Fall Risk Secondary Diagnosis: (0) No (05/14/2016 19:41:Nallely Gonzalez RN) Fall Risk Secondary Diagnosis: (0) No (05/13/2016 10:10:Carlos Bradley RN) Fall Risk Ambulatory Aid: (0) None/Bedrest/Wheelchair/Nurse Assist (05/14/2016 19:41:Nallely Gonzalez RN) Fall Risk Ambulatory Aid: (0) None/Bedrest/Wheelchair/Nurse Assist (05/13/2016 10:10:Carlos Bradley RN) Fall Risk IV Therapy: (20) Yes (05/14/2016 19:41:Nallely Gonzalez RN) Fall Risk IV Therapy: (0) No (05/13/2016 10:10:Carlos Bradley RN) Fall Risk Gait: (0) Normal/Bedrest/Immobile (05/14/2016 19:41:Nallely Gonzalez RN) Fall Risk Gait: (0) Normal/Bedrest/Immobile (05/13/2016 10:10:Carlos Bradley RN) Fall Risk Mental Status: (0) Oriented to Own Ability (05/14/2016 19:41:Nallely Gonzalez RN) Fall Risk Mental Status: (0) Oriented to Own Ability (05/13/2016 10:10:Carlos Bardley RN) Fall Risk Score: 20 (05/14/2016 19:41:QS system process) Fall Risk Score: 0 (05/13/2016 10:10:QS system process) Fall Risk Score Definition: No Risk: No action required (05/14/2016 19:41:QS system process) Fall Risk Score Definition: No Risk: No action required (05/13/2016 10:10:QS system process) RECENT TRAVEL/INFECTIOUS DISEASE Recent Exp Communicable Disease: No (05/14/2016 19:41:Nallely Gonzalez RN) Recent Exp Communicable Disease: No (05/13/2016 10:10:Carlos Bradley RN) Cough or Fever: No (05/14/2016 19:41:Nallely Gonzalez RN) Cough or Fever: No (05/13/2016 10:10:Carlos Bradley RN) Foreign Travel Past 10 Days: No (05/14/2016 19:41:Nallely Gonzalez RN) Foreign Travel Past 10 Days: No (05/13/2016 10:10:Carlos Bradley RN) Open Wounds or Sores: No (05/14/2016 19:41:Nallely Gonzalez RN) Open Wounds or Sores: No (05/13/2016 10:10:Carlos Bradley RN) Prior Antibiotic Resistance Tx: No (05/14/2016 19:41:Nallely Gonzalez RN) Prior Antibiotic Resistance Tx: No (05/13/2016 10:10:Carlos Bradley RN) Cultures Obtained: Not Applicable (05/14/2016 19:41:Nallely Gonzalez RN) Cultures Obtained: Not Applicable (05/13/2016 10:10:Carlos Bradley RN) Isolation Initiated: No (05/14/2016 19:41:Nallely Gonzalez RN) Isolation Initiated: No (05/13/2016 10:10:Carlos Bradley RN) Pt/Family Education: Handwashing Hygiene (05/14/2016 19:41:Nallely Gonzalez RN) Pt/Family Education: Handwashing Hygiene (05/13/2016 10:10:Carlos Bradley RN) BABY A FHR Baseline Rate (bpm) Baby A: 125 (05/15/2016 02:00:Nallely Gonzalez RN) FHR Baseline Rate (bpm) Baby A: 135 (05/15/2016 01:30:Nallely Gonzalez RN) FHR Baseline Rate (bpm) Baby A: 135 (05/15/2016 01:00:Nallely Gonzalez RN) FHR Baseline Rate (bpm) Baby A: 135 (05/15/2016 00:30:Nallely Gonzalez RN) FHR Baseline Rate (bpm) Baby A: 135 (05/15/2016 00:00:Nallely Gonzalez RN) FHR Baseline Rate (bpm) Baby A: 135 (05/14/2016 23:30:Nallely Gonzalez RN) FHR Baseline Rate (bpm) Baby A: 140 (05/14/2016 23:00:Nallely Gonzalez RN) FHR Baseline Rate (bpm) Baby A: 140 (05/14/2016 22:30:Nallely Gonzalez RN) FHR Baseline Rate (bpm) Baby A: 140 (05/14/2016 22:00:Nallely Gonzalez RN) FHR Baseline Rate (bpm) Baby A: 140 (05/14/2016 21:30:Nallely Gonzalez RN) FHR Baseline Rate (bpm) Baby A: 140 (05/14/2016 21:00:Nallely Gonzalez RN) FHR Baseline Rate (bpm) Baby A: 145 (05/14/2016 20:30:Nallely Gonzalez RN) FHR Baseline Rate (bpm) Baby A: 140 (05/14/2016 20:00:Nallely Gonzalez RN) Variability Baby A: Moderate 6-25 bpm (05/15/2016 02:00:Nallely Gonzalez RN) Variability Baby A: Moderate 6-25 bpm (05/15/2016 01:30:Nallely Gonzalez RN) Variability Baby A: Moderate 6-25 bpm (05/15/2016 01:00:Nallely Gonzalez RN) Variability Baby A: Moderate 6-25 bpm (05/15/2016 00:30:Nallely Gonzalez RN) Variability Baby A: Moderate 6-25 bpm (05/15/2016 00:00:Nallely Gonzalez RN) Variability Baby A: Moderate 6-25 bpm (05/14/2016 23:30:Nallely Gonzalez RN) Variability Baby A: Moderate 6-25 bpm (05/14/2016 23:00:Nallely Gonzalez RN) Variability Baby A: Moderate 6-25 bpm (05/14/2016 22:30:Nallely Gonzalez RN) Variability Baby A: Moderate 6-25 bpm (05/14/2016 22:00:Nallely Gonzalez RN) Variability Baby A: Moderate 6-25 bpm (05/14/2016 21:30:Nallely Gonzalez RN) Variability Baby A: Moderate 6-25 bpm (05/14/2016 21:00:Nallely Gonzalez RN) Variability Baby A: Moderate 6-25 bpm (05/14/2016 20:30:Nallely Gonzalez RN) Variability Baby A: Moderate 6-25 bpm (05/14/2016 20:00:Nallely Gonzalez RN) Accelerations Baby A: 15X15 (05/15/2016 02:00:Nallely Gonzalez RN) Accelerations Baby A: 15X15 (05/15/2016 01:30:Nallely Gonzalez RN) Accelerations Baby A: 15X15 (05/15/2016 01:00:Nallely Gonzalez RN) Accelerations Baby A: 15X15 (05/15/2016 00:30:Nallely Gonzalez RN) Accelerations Baby A: 15X15 (05/15/2016 00:00:Nallely Gonzalez RN) Accelerations Baby A: 15X15 (05/14/2016 23:30:Nallely Gonzalez RN) Accelerations Baby A: 15X15 (05/14/2016 23:00:Nallely Gonzalez RN) Accelerations Baby A: 15X15 (05/14/2016 22:30:Nallely Gonzalez RN) Accelerations Baby A: 15X15 (05/14/2016 22:00:Nallely Gonzalez RN) Accelerations Baby A: 15X15 (05/14/2016 21:30:Nallely Gonzalez RN) Accelerations Baby A: 15X15 (05/14/2016 21:00:Nallely Gonzalez RN) Accelerations Baby A: 15X15 (05/14/2016 20:30:Nallely Gonzalez RN) Accelerations Baby A: 15X15 (05/14/2016 20:00:Nallely Gonzalez RN) Decelerations Baby A: None (05/15/2016 02:00:Nallely Gonzalez RN) Decelerations Baby A: None (05/15/2016 01:30:Nallely Gonzalez RN) Decelerations Baby A: None (05/15/2016 01:00:Nallely Gonzalez RN) Decelerations Baby A: None (05/15/2016 00:30:Nallely Gonzalez RN) Decelerations Baby A: None (05/15/2016 00:00:Nallely Gonzalez RN) Decelerations Baby A: None (05/14/2016 23:30:Nallely Gonzalez RN) Decelerations Baby A: None (05/14/2016 23:00:Nallely Gonzalez RN) Decelerations Baby A: None (05/14/2016 22:30:Nallely Gonzalez RN) Decelerations Baby A: None (05/14/2016 22:00:Nallely Gonzalez RN) Decelerations Baby A: None (05/14/2016 21:30:Nallely Gonzalez RN) Decelerations Baby A: None (05/14/2016 21:00:Nallely Gonzalez RN) Decelerations Baby A: None (05/14/2016 20:30:Nallely Gonzalez RN) Decelerations Baby A: None (05/14/2016 20:00:Nallely Gonzalez RN) ADDITIONAL COMMENTS Assessment Flag: Admission Assessment (05/14/2016 19:41:QS system process) Assessment Flag: Admission Assessment (05/13/2016 10:10:QS system process)
--- NOTE | 2016-05-15 04:46 | L&D General Admission ---
General Admit Datetime Report Generated by CPN: 05/15/2016 04:45 CARE Height (in): 65 (05/13/2016 10:19:QS system process) ALLERGIES Medication Allergies: No Known Allergies (05/13/2016) (05/13/2016 09:59:QS system process) LABS Hemoglobin: 10.1 L (05/14/2016 19:45:QS system process) Hematocrit: 29.2 L (05/14/2016 19:45:QS system process) MCV: 81 (05/14/2016 19:45:QS system process)
--- NOTE | 2016-05-15 04:46 | L&D Current Admission ---
Current Admit Datetime Report Generated by CPN: 05/15/2016 04:45 ADMISSION INFORMATION Current Admit Date/Time: 05/14/2016 19:22 (05/14/2016 19:39:Nallely Gonzalez RN) Reason for Admission: Induction of Labor (05/14/2016 19:39:Nallely Gonzalez RN) Chief Complaint: Scheduled Induction of Labor (05/14/2016 19:41:Nallely Gonzalez RN) Chief Complaint: Brown/pink discharge this morning. Pt was seen in office yesterday. (05/13/2016 10:10:Carlos Bradley RN) EGA per Dates: 40.6 (05/14/2016 19:39:QS system process) Method of Arrival: Ambulatory (05/14/2016 19:39:Nallely Gonzalez RN) Reason for Induction: Postterm (05/14/2016 19:39:Nallely Gonzalez RN) Records Available: Yes (05/14/2016 19:39:Nallely Gonzalez RN) General Admission Information: Reviewed; Updated; Confirmed (05/14/2016 19:39:Nallely Gonzalez RN) General Admission Reviewed By: DANYA Kenny (05/14/2016 19:39:Nallely Gonzalez RN) BELONGINGS/ADVANCED DIRECTIVES Valuables/Personal Effects: Purse/Wallet; Cell Phone; Jewelry (05/14/2016 19:39:Nallely Gonzalez RN) Disposition of Belongings: Kept with Patient (05/14/2016 19:39:Nallely Gonzalez RN) Advance Direct for Healthcare: No, and Wants No Information (05/14/2016 19:39:Nallely Gonzalez RN) Durable Power of Suspect Artist Supervisor: No (05/14/2016 19:39:Nallely Gonzalez RN) Living Will: No (05/14/2016 19:39:Nallely Gonzalez RN) Organ Donor: Yes (05/14/2016 19:39:Nallely Gonzalez RN) Pt Rights Information Given: Yes (05/14/2016 19:39:Nallely Gonzalez RN) Pt Understands Pt Rights: Yes (05/14/2016 19:39:Nallely Gonzalez RN) LEARNING ASSESSMENT Knowledge Level: Understands L_D Process; Understands Care Activities; Had Pre-Hospital Education; Understands Diagnosis (05/14/2016 19:39:Nallely Gonzalez RN) Barriers to Learning: None (05/14/2016 19:39:Nallely Gonzalez RN) Learning Readiness: Motivated (05/14/2016 19:39:Nallely Gonzalez RN) Learns Best By: Reading; Videos (05/14/2016 19:39:Nallely Gonzalez RN) Learning Needs: Labor and Delivery Process; Pain Management; Symptoms to Report; Treatment Plan; Medication (05/14/2016 19:39:Nallely Gonzalez RN) DOMESTIC VIOLANCE SCREENING Dom Viol Threatened/Hurt: No (05/14/2016 19:39:Nallely Gonzalez RN) Hx of Abuse/Neglect past 2yrs: No (05/14/2016 19:39:Nallely Gonzalez RN) Feel Unsafe Going Home: No (05/14/2016 19:39:Nallely Gonzalez RN) Addt'l Observ Indicating Abuse: No (05/14/2016 19:39:Nallely Gonzalez RN) Reason Unable to Complete Screen: N/A, Screen Completed (05/14/2016 19:39:Nallely Gonzalez RN) Considered Personal Harm/Suicide: No (05/14/2016 19:39:Nallely Gonzalez RN) NUTRITIONAL/FUNCTIONAL SCREENING Problem with Appetite >5 Days: No (05/14/2016 19:39:Nallely Gonzalez RN) Chew/Swallow Difficulties: No (05/14/2016 19:39:Nallely Gonzalez RN) Inappropriate Wt Gain/Loss: No (05/14/2016 19:39:Nallely Gonzalez RN) Presence Skin Breakdown/Ulcer: No (05/14/2016 19:39:Nallely Gonzalez RN) Special Diet: No (05/14/2016 19:39:Nallely Gonzalez RN) Pt Requests Operating System Programmer Visit: No (05/14/2016 19:39:Nallely Gonzalez RN) Hx of Any of the Following?: N/A (05/14/2016 19:39:Nallely Gonzalez RN) New Diagnosis of: N/A (05/14/2016 19:39:Nallely Gonzalez RN) Requires Assist w/Ambulation: No (05/14/2016 19:39:Nallely Gonzalez RN) Uses Assist Device to Ambulate: No (05/14/2016 19:39:Nallely Gonzalez RN) Pt Requires Help w/ADL's: No (05/14/2016 19:39:Nallely Gonzalez RN)
--- NOTE | 2016-05-15 04:46 | L&D Flow Sheet ---
LD Flowsheet Datetime Report Generated by CPN: 05/15/2016 04:45 Datetime: 05/15/2016 04:36 Communication Communication: RN Reviewed Strip; Provider Orders Received; Call/Page Placed to Provider (Nallely Gonzalez, RN) Communication Comments: Informed Dr. Cardona of patient vomiting; orders received for Phenergan 12.5 mg IV now (Nallely Gonzalez, RN) Datetime: 05/15/2016 04:34 Vital Signs NBP Sys/Pricilla/Mean (mmHg): 120 (QS system process) : 70 (QS system process) : 89 (QS system process) Pulse: 113 (QS system process) Datetime: 05/15/2016 04:04 Vital Signs NBP Sys/Pricilla/Mean (mmHg): 125 (QS system process) : 70 (QS system process) : 93 (QS system process) Pulse: 83 (QS system process) Datetime: 05/15/2016 03:34 Vital Signs NBP Sys/Pricilla/Mean (mmHg): 132 (QS system process) : 76 (QS system process) : 99 (QS system process) Pulse: 81 (QS system process) Datetime: 05/15/2016 03:04 Vital Signs NBP Sys/Pricilla/Mean (mmHg): 141 (QS system process) : 82 (QS system process) : 107 (QS system process) Pulse: 82 (QS system process) Datetime: 05/15/2016 02:34 Vital Signs NBP Sys/Pricilla/Mean (mmHg): 125 (QS system process) : 75 (QS system process) : 96 (QS system process) Pulse: 81 (QS system process) Datetime: 05/15/2016 02:05 Vital Signs NBP Sys/Pricilla/Mean (mmHg): 137 (QS system process) : 93 (QS system process) : 111 (QS system process) Pulse: 82 (QS system process) Datetime: 05/15/2016 02:00 Uterine Activity Monitor Mode: External; Palpation (Nallely Field, RN) Frequency (min): Irritability (Nallely Field, RN) Quality: Mild (Nallely Field, RN) Resting Tone (Palpate): Relaxed (Nallely Field, RN) Assessment A Monitor Mode: External US (Nallely Field, RN) FHR Baseline Rate : 125 (Nallely Field, RN) Variability: Moderate 6-25 bpm (Nallely Field, RN) Accelerations: 15X15 (Nallely Field, RN) Decelerations: None (Nallely Field, RN) Datetime: 05/15/2016 01:48 Cervical Ripening Agents: Cervidil (Nallely Field, RN) Datetime: 05/15/2016 01:45 Medications Analgesics/Sedatives: Ambien (mg) @ 5 PO (Nallely Field, RN) Datetime: 05/15/2016 01:38 I/O Interventions: Up to BR (Nallely Field, RN) Datetime: 05/15/2016 01:37 Patient Care IV/Blood Work: New IV Bag Hung; IV Bag Number @ 2 (Nallely Field, RN) Datetime: 05/15/2016 01:34 Vital Signs NBP Sys/Pricilla/Mean (mmHg): 137 (QS system process) : 85 (QS system process) : 107 (QS system process) Pulse: 73 (QS system process) Datetime: 05/15/2016 01:30 Uterine Activity Monitor Mode: External; Palpation (Nallely Field, RN) Frequency (min): x2 (Nallely , RN) Quality: Mild (Nallely , RN) Duration (sec): 50 (Nallely , RN) Resting Tone (Palpate): Relaxed (Nallely Field, RN) Assessment A Monitor Mode: External US (Nallely Gonzalez, RN) FHR Baseline Rate : 135 (Nallely Gonzalez, RN) Variability: Moderate 6-25 bpm (Nallely Gonzalez, RN) Accelerations: 15X15 (Nallely Gonzalez, RN) Decelerations: None (Nallely Gonzalez, RN) Datetime: 05/15/2016 01:27 Communication Communication: RN Reviewed Strip; Provider Orders Received; Call/Page Placed to Provider (Nallely Gonzalez RN) Communication Comments: Informed Dr. Cardona that Cervidil came out while using bathroom and patient asking for Ambien; orders received to insert another Cervidil and to give Ambien 5 mg now. (Nallely Gonzalez RN) Datetime: 05/15/2016 01:18 Medication Comments: Cervidil came out while patient was using bathroom (Nallely Field, RN) Datetime: 05/15/2016 01:08 I/O Interventions: Up to BR (Nallely Field, RN) Datetime: 05/15/2016 01:04 Vital Signs NBP Sys/Pricilla/Mean (mmHg): 124 (QS system process) : 76 (QS system process) : 93 (QS system process) Pulse: 78 (QS system process) Datetime: 05/15/2016 01:00 Uterine Activity Monitor Mode: External; Palpation (Nallely Field, RN) Frequency (min): Irritability (Nallely , RN) Quality: Mild (Nallely , RN) Resting Tone (Palpate): Relaxed (Nallely Field, RN) Assessment A Monitor Mode: External US ([facility], RN) [facility]HR [facility] : [facility] Variability: Moderate 6-25 bpm [facility] Accelerations: 15X15 ([facility], RN) Decelerations: None [facility] Datetime: 05/15/2016 00:30 Uterine Activity Monitor Mode: External; [facility] (min): x2 [facility] Quality: Mild (Nallely Field, RN) Duration (sec): 60-90 ([facility], RN) Resting Tone (Palpate): Relaxed [facility] Assessment A Monitor Mode: External US (Nallely Field, RN) FHR Baseline Rate : 135 (Nallely Field, RN) Variability: Moderate 6-25 bpm (Nallely Field, RN) Accelerations: 15X15 (Nallely Field, RN) Decelerations: None (Nallely Field, RN) I/O Interventions: Up to BR (Nallely Field, RN) Datetime: 05/15/2016 00:00 Uterine Activity Monitor Mode: External; Palpation (Nallely Field, RN) Frequency (min): x3 (Nallely Field, RN) Quality: Mild (Nallely Field, RN) Duration (sec): 50-100 (Nallely Field, RN) Resting Tone (Palpate): Relaxed (Nallely Field, RN) Assessment A Monitor Mode: External US (Nallely Field, RN) FHR Baseline Rate : 135 (Nallely Field, RN) Variability: Moderate 6-25 bpm (Nallely Field, RN) Accelerations: 15X15 (Nallely Field, RN) Decelerations: None (Nallely Field, RN) Datetime: 05/14/2016 23:57 I/O Interventions: Up to BR (Nallely Field, RN) Datetime: 05/14/2016 23:35 Vital Signs NBP Sys/Pricilla/Mean (mmHg): 134 (QS system process) : 77 (QS system process) : 100 (QS system process) Pulse: 89 (QS system process) Datetime: 05/14/2016 23:30 Uterine Activity Monitor Mode: External; Palpation (Nallely Field, RN) Frequency (min): x2 (Nallely Field, RN) Quality: Mild (Nallely Field, RN) Duration (sec): 60 (Nallely Field, RN) Resting Tone (Palpate): Relaxed (Nallely Field, RN) Assessment A Monitor Mode: External US (Nallely Field, RN) FHR Baseline Rate : 135 (Nallely Field, RN) Variability: Moderate 6-25 bpm (Nallely Field, RN) Accelerations: 15X15 (Nallely Field, RN) Decelerations: None (Nallely Field, RN) Datetime: 05/14/2016 23:09 I/O Interventions: Up to BR (Nallely Field, RN) Datetime: 05/14/2016 23:04 Vital Signs NBP Sys/Pricilla/Mean (mmHg): 128 (QS system process) : 77 (QS system process) : 98 (QS system process) Pulse: 87 (QS system process) Datetime: 05/14/2016 23:00 Uterine Activity Monitor Mode: External; Palpation (Nallely Field, RN) Frequency (min): 1-2 (Nallely Field, RN) Quality: Mild (Nallely Field, RN) Duration (sec): 40-80 (Nallely Field, RN) Resting Tone (Palpate): Relaxed (Nallely Field, RN) Assessment A Monitor Mode: External US [facility] FHR Baseline Rate : 140 (Nallely Field, RN) Variability: Moderate 6-25 bpm (Nallely Field, RN) Accelerations: 15X15 ([facility], RN) Decelerations: None (Nallely Field, RN) Datetime: 05/14/2016 22:34 Vital Signs NBP Sys/Pricilla/Mean (mmHg): 132 (QS system process) : 71 (QS system process) : 96 (QS system process) Pulse: 94 (QS system process) Datetime: 05/14/2016 22:30 Uterine Activity Monitor Mode: External; Palpation (Nallely Field, RN) Frequency (min): Irritability (Nallely Field, RN) Resting Tone (Palpate): Relaxed (Nallely Field, RN) Assessment A Monitor Mode: External US (Nallely Gonzalez, RN) FHR Baseline Rate : 140 (Nallely Gonzalez, RN) Variability: Moderate 6-25 bpm (Nallely Field, RN) Accelerations: 15X15 (Nallely Field, RN) Decelerations: None (Nallely Field, RN) Datetime: 05/14/2016 22:25 I/O Interventions: Up to BR (Nallely Field, RN) Datetime: 05/14/2016 22:04 Vital Signs NBP Sys/Pricilla/Mean (mmHg): 130 (QS system process) : 68 (QS system process) : 94 (QS system process) Pulse: 82 (QS system process) Datetime: 05/14/2016 22:00 Uterine Activity Monitor Mode: External; Palpation (Nallely Field, RN) Frequency (min): Irritability (Nallely Field, RN) Resting Tone (Palpate): Relaxed (Nallely Field, RN) Assessment A Monitor Mode: External US (Nallely Gonzalez, RN) FHR Baseline Rate : 140 (Nallely Field, RN) Variability: Moderate 6-25 bpm (Nallely Field, RN) Accelerations: 15X15 (Nallely Field, RN) Decelerations: None (Nallely Field, RN) Datetime: 05/14/2016 21:34 Vital Signs NBP Sys/Pricilla/Mean (mmHg): 121 (QS system process) : 66 (QS system process) : 87 (QS system process) Pulse: 80 (QS system process) Datetime: 05/14/2016 21:30 Uterine Activity Monitor Mode: External; Palpation (Nallely Field, RN) Frequency (min): Irritability (Nallely Field, RN) Resting Tone (Palpate): Relaxed (Nallely Field, RN) Assessment A Monitor Mode: External US (Nallely Field, RN) FHR Baseline Rate : 140 (Nallely Field, RN) Variability: Moderate 6-25 bpm (Nallely Field, RN) Accelerations: 15X15 (Nallely Field, RN) Decelerations: None (Nallely Field, RN) Datetime: 05/14/2016 21:04 Vital Signs NBP Sys/Pricilla/Mean (mmHg): 140 (QS system process) : 72 (QS system process) : 100 (QS system process) Pulse: 79 (QS system process) Datetime: 05/14/2016 21:00 Uterine Activity Monitor Mode: External; Palpation (Nallely Field, RN) Frequency (min): x1 (Nallely Field, RN) Duration (sec): 60 (Nallely Field, RN) Resting Tone (Palpate): Relaxed (Nallely Field, RN) Assessment A Monitor Mode: External US (Nallely Field, RN) FHR Baseline Rate : 140 (Nallely Field, RN) Variability: Moderate 6-25 bpm (Nallely Field, RN) Accelerations: 15X15 (Nallely Field, RN) Decelerations: None (Nallely Field, RN) Datetime: 05/14/2016 20:34 Vital Signs NBP Sys/Pricilla/Mean (mmHg): 127 (QS system process) : 75 (QS system process) : 96 (QS system process) Pulse: 91 (QS system process) Datetime: 05/14/2016 20:30 Uterine Activity Monitor Mode: External; Palpation (Nallely Field, RN) Frequency (min): Irritability (Nallely Field, RN) Resting Tone (Palpate): Relaxed (Nallely Field, RN) Assessment A Monitor Mode: External US (Nallely Gonzalez, RN) FHR Baseline Rate : 145 (Nallely Gonzalez, RN) Variability: Moderate 6-25 bpm (Nallely Gonzalez, RN) Accelerations: 15X15 (Nallely Gonzalez, RN) Decelerations: None (Nallely Gonzalez, RN) Datetime: 05/14/2016 20:26 Cervical Ripening Agents: Cervidil (Nallely Field, RN) Datetime: 05/14/2016 20:25 Vaginal Exam Dilatation (cm): 1.0 (Nallely Gonzalez, RN) Effacement (%): 60 (Nallely Gonzalez, RN) Station: -2 (Nallely Gonzalez, RN) Exam by: J.Field, RN (Nallely Gonzalez, RN) Datetime: 05/14/2016 20:17 I/O Interventions: Up to BR (Nallely Field, RN) Datetime: 05/14/2016 20:00 Uterine Activity Monitor Mode: External; Palpation (Nallely Field, RN) Frequency (min): Irritability (Nallely Field, RN) Resting Tone (Palpate): Relaxed (Nallely Field, RN) Assessment A Monitor Mode: External US (Nallely Field, RN) FHR Baseline Rate : 140 (Nallely Field, RN) Variability: Moderate 6-25 bpm (Nallely Field, RN) Accelerations: 15X15 (Nallely Field, RN) Decelerations: None (Nallely Field, RN) Datetime: 05/14/2016 19:55 Procedures: Consents Signed; Labs Drawn (Nallely Field, RN) Datetime: 05/14/2016 19:41 Pain Pain Scale: 0 ([facility], ) Pain Presence: None/Denies ([facility], RN) Pain Type: N/A ([facility], ) Pain Goal: 0 ([facility], ) Vaginal Bleeding: Normal Show ([facility], ) Maternal Assessment Level of Consciousness: Fully Conscious ([facility], RN) DTR's/Clonus: DTRs 2+; No Clonus ([facility], RN) Headache: Denies ([facility], RN) Breath Sounds, Left: Clear and Equal ([facility], RN) Breath Sounds, Right: Clear and Equal ([facility], RN) Nausea/Vomiting: Denies (Nallely Gonzalez RN) RUQ Epigastric Pain: Denies (Nallely Gonzalez RN) Patient Care IV/Blood Work: IV Started; IV Bolus Started; IV Infusing per Order; New IV Bag Hung; IV Bag Number @ 1 (Nallely Gonzalez RN) Teaching Instructional Method: Verbal; Patient Instructed; Family/Support Person Instructed; Verbalized Understanding (Nallely Gonzalez RN) Plan of Care: Plan of Care Discussed; Vaginal Delivery; Induction (Nallely Gonzalez RN) Unit Routine: [place] to Room; Call [place]; Bed; Visiting Policy; Waiting Areas; Security; Phone/Cell Phone Use; Photography; Unit Personnel; Handwashing; Flu/Illness Precautions; Monitoring; IV Pumps; Safety/Fall Risk Prevention; Diet/Nutrition Services; Bathroom Privileges (Nallely Gonzalez RN) Datetime: 05/14/2016 19:34 Vital Signs NBP Sys/Pricilla/Mean (mmHg): 129 (QS system process) : 75 (QS system process) : 96 (QS system process) Pulse: 95 (QS system process)
[2016-05-15] MEDS ORDERED: PROMETHAZINE HCL INJ 25 MG/1 ML VIAL IV ONE ×2 (05:35→12:41)
--- NOTE | 2016-05-15 06:25 | L&D Current Admission ---
Current Admit Datetime Report Generated by CPN: 05/15/2016 06:00 ADMISSION INFORMATION Current Admit Date/Time: 05/14/2016 19:22 (05/14/2016 19:39:Nallely Gonzalez RN) Reason for Admission: Induction of Labor (05/14/2016 19:39:Nallely Gonzalez RN) Chief Complaint: Scheduled Induction of Labor (05/14/2016 19:41:Nallely Gonzalez RN) EGA per Dates: 40.6 (05/14/2016 19:39:QS system process) Method of Arrival: Ambulatory (05/14/2016 19:39:Nallely Gonzalez RN) Reason for Induction: Postterm (05/14/2016 19:39:Nallely Gonzalez RN) Records Available: Yes (05/14/2016 19:39:Nallely Gonzalez RN) General Admission Information: Reviewed; Updated; Confirmed (05/14/2016 19:39:Nallely Gonzalez RN) General Admission Reviewed By: DANYA Kenny (05/14/2016 19:39:Nallely Gonzalez RN) BELONGINGS/ADVANCED DIRECTIVES Valuables/Personal Effects: Purse/Wallet; Cell Phone; Jewelry (05/14/2016 19:39:Nallely Gonzalez RN) Disposition of Belongings: Kept with Patient (05/14/2016 19:39:Nallely Gonzalez RN) Advance Direct for Healthcare: No, and Wants No Information (05/14/2016 19:39:Nallely Gonzalez RN) Durable Power of Is Analyst: No (05/14/2016 19:39:Nallely Gonzalez RN) Living Will: No (05/14/2016 19:39:Nallely Gonzalez RN) Organ Donor: Yes (05/14/2016 19:39:Nallely Gonzalez RN) Pt Rights Information Given: Yes (05/14/2016 19:39:Nallely Gonzalez RN) Pt Understands Pt Rights: Yes (05/14/2016 19:39:Nallely Gonzalez RN) LEARNING ASSESSMENT Knowledge Level: Understands L_D Process; Understands Care Activities; Had Pre-Hospital Education; Understands Diagnosis (05/14/2016 19:39:Nallely Gonzalez RN) Barriers to Learning: None (05/14/2016 19:39:Nallely Gonzalez RN) Learning Readiness: Motivated (05/14/2016 19:39:Nallely Gonzalez RN) Learns Best By: Reading; Videos (05/14/2016 19:39:Nallely Gonzalez RN) Learning Needs: Labor and Delivery Process; Pain Management; Symptoms to Report; Treatment Plan; Medication (05/14/2016 19:39:Nallely Gonzalez RN) DOMESTIC VIOLANCE SCREENING Dom Viol Threatened/Hurt: No (05/14/2016 19:39:Nallely Gonzalez RN) Hx of Abuse/Neglect past 2yrs: No (05/14/2016 19:39:Nallely Gonzalez RN) Feel Unsafe Going Home: No (05/14/2016 19:39:Nallely Gonzalez RN) Addt'l Observ Indicating Abuse: No (05/14/2016 19:39:Nallely Gonzalez RN) Reason Unable to Complete Screen: N/A, Screen Completed (05/14/2016 19:39:Nallely Gonzalez RN) Considered Personal Harm/Suicide: No (05/14/2016 19:39:Nallely Gonzalez RN) NUTRITIONAL/FUNCTIONAL SCREENING Problem with Appetite >5 Days: No (05/14/2016 19:39:Nallely Gonzalez RN) Chew/Swallow Difficulties: No (05/14/2016 19:39:Nallely Gonzalez RN) Inappropriate Wt Gain/Loss: No (05/14/2016 19:39:Nallely Gonzalez RN) Presence Skin Breakdown/Ulcer: No (05/14/2016 19:39:Nallely Gonzalez RN) Special Diet: No (05/14/2016 19:39:Nallely Gonzalez RN) Pt Requests Yacht Hand Visit: No (05/14/2016 19:39:Nallely Gonzalez RN) Hx of Any of the Following?: N/A (05/14/2016 19:39:Nallely Gonzalez RN) New Diagnosis of: N/A (05/14/2016 19:39:Nallely Gonzalez RN) Requires Assist w/Ambulation: No (05/14/2016 19:39:Nallely Gonzalez RN) Uses Assist Device to Ambulate: No (05/14/2016 19:39:Nallely Gonzalez RN) Pt Requires Help w/ADL's: No (05/14/2016 19:39:Nallely Gonzalez RN)
--- NOTE | 2016-05-15 06:25 | L&D General Admission ---
General Admit Datetime Report Generated by CPN: 05/15/2016 06:00 INFORMATION Patient Age: 20 (03/26/2016 14:37:QS system process) EDC: 05/08/2016 00:00 (05/12/2016 19:17:Valentina Pyle RN) : 3 (05/12/2016 19:17:Valentina Pyle RN) Para: 0 (05/12/2016 19:47:Valentina Pyle RN) Term: 0 (05/12/2016 19:17:Valentina Pyle RN) : 0 (05/12/2016 19:17:Valentina Pyle RN) Spontaneous Abortions: 2 (05/12/2016 19:17:Valentina Pyle RN) Induced Abortions: 0 (05/12/2016 19:17:Valentina Pyle RN) Livin (05/12/2016 19:17:Valentina Pyle RN) Cesareans: 0 (05/12/2016 19:17:Valentina Pyle RN) VBACs: 0 (05/12/2016 19:17:Valentina Pyle RN) Ectopic: 0 (05/12/2016 19:17:Valentina Pyle RN) Multiple Births: 0 (05/12/2016 19:17:Valentina Pyle RN) Baby, Number in Womb: 1 (05/12/2016 19:47:Valentina Pyle RN) CARE Primary Control Systems Specialist: [facility] (05/12/2016 19:17:Valentina Pyle RN) Control Systems Specialist Other: [facility] (05/12/2016 19:17:Valentina Pyle RN) Adequate Care: Yes (05/12/2016 19:17:Valentina Pyle RN) Prepregnancy Weight (lb): 188 (05/12/2016 19:17:Valentina Pyle RN) Prepregnancy Weight (kg): 85.5 (05/12/2016 19:17:QS system process) Height (in): 65 (05/13/2016 10:19:QS system process) ALLERGIES Medication Allergy: No (05/12/2016 19:17:Valentina Pyle RN) Medication Allergies: No Known Allergies (05/13/2016) (05/13/2016 09:59:QS system process) Latex Allergy: No Latex Allergies (05/12/2016 19:17:Valentina Pyle RN) Food Allergies: N/A (05/12/2016 19:17:Nallely Gonzalez RN) Environmental Allergies: N/A (05/12/2016 19:17:Nallely Gonzalez RN) COMMUNICATION Primary Language: Moroccan (05/12/2016 19:17:Valentina Pyle RN) Medical Tx Preferred Language: Moroccan (05/12/2016 19:17:Valentina Pyle RN) Communication Barrier(s): None (05/12/2016 19:17:Carlos Bradley RN) DEMOGRAPHICS Address: [address] [place] [id number] (03/26/2016 14:37:QS system process) Zipcode: [address] (03/26/2016 14:37:QS system process) Home (03/26/2016 14:37:QS system process) SSN: [id number] (03/26/2016 14:37:QS system process) Next of Kin Name: HOMERO CASTANEDA (03/26/2016 14:37:QS system process) Next of Kin (03/26/2016 14:37:QS system process) Next of Kin Relationship: OR (03/26/2016 14:37:QS system process) Date of : 1995 (03/26/2016 14:37:QS system process) Marital Status: Single (03/26/2016 14:37:QS system process) Sex: Female (03/26/2016 14:37:QS system process) Race: (03/26/2016 14:37:QS system process) Ethnicity: Non- or (03/26/2016 14:37:QS system process) Yazidi: Other (03/26/2016 14:37:QS system process) FOB Involved: Yes (05/12/2016 19:17:Nallely Gonzalez RN) Father of Baby Name: Marcin Fields (05/12/2016 19:17:Nallely Gonzalez RN) DRUG AND ALCOHOL USE Alcohol: No (05/12/2016 19:17:Carlos Bradley RN) Cigarettes: Never Smoker. [id number] (05/12/2016 19:17:Carlos Bradley RN) Marijuana: No (05/12/2016 19:17:Carlos Bradley RN) Cocaine: No (05/12/2016 19:17:Carlos Bradley RN) Other Illicit Drugs: No (05/12/2016 19:17:Carlos Bradley RN) VACCINE HISTORY Influenza Vaccine: No (05/12/2016 19:17:Nallely Gonzalez RN) Pneumococcal Vaccine: No (05/12/2016 19:17:Nallely Gonzalez RN) Tetanus Vaccine: No (05/12/2016 19:17:Nallely Gonzalez RN) Tdap Vaccine: No (05/12/2016 19:17:Nallely Gonzalez RN) Hepatitis B Vaccine: No (05/12/2016 19:17:Nallely Gonzalez RN) Contact Lens Curve Grinder: [facility] (05/12/2016 19:17:Nallely Gonzalez RN) Feeding Preference: Breast (05/12/2016 19:17:Nallely Gonzalez RN) Benefit of Breast Feed Discussed: Yes (05/12/2016 19:17:Nallely Gonzalez RN) Circumcision: N/A (05/12/2016 19:17:Carlos Bradley RN) Classes Attended: No (05/12/2016 19:17:Carlos Bradley RN) Tubal Ligation: No (05/12/2016 19:17:Carlos Bradley RN) Tubal Authorization Signed: N/A (05/12/2016 19:17:Carlos Bradley RN) Consent: N/A (05/12/2016 19:17:Carlos Bradley RN) Consent Signed: N/A (05/12/2016 19:17:Carlos Bradley RN) Pain Management Plans: None (05/12/2016 19:17:Nallely Gonzalez RN) Plans for Labor and Delivery: None (05/12/2016 19:17:Nallely Gonzalez RN) Support Person: Marcin Fields (05/12/2016 19:17:Nallely Gonzalez RN) Support Person Relationship: Significant Other (05/12/2016 19:17:Nallely Gonzalez RN) Cultural/Spritual Practice: No (05/12/2016 19:17:Carlos Bradley RN) Spir/Cult Dietary Needs: No (05/12/2016 19:17:Carlos Bradley RN) LIVING SITUATION/DISCHARGE PLAN Living Arrangements: House (05/12/2016 19:17:Nallely Gonzalez RN) Adequate Access to:: Electric; Heat; Refrigeration; Plumbing/Running water; Phone; Transportation (05/12/2016 19:17:Nallely Gonzalez RN) WIC Program: Yes (05/12/2016 19:17:Nallely Gonzalez RN) Discharge Traffic Observer Person: Marcin Donnie (05/12/2016 19:17:Nallely Gonzalez RN) Person to Help after Discharge: Marcin Donnie (05/12/2016 19:17:Nallely Gonzalez RN) Currently Using Commun Resources: No (05/12/2016 19:17:Nallely Gonzalez RN) Outside Agency/Claim Benefit Specialist: No (05/12/2016 19:17:Nallely Gonzalez RN) Car Seat for Discharge: Yes (05/12/2016 19:17:Nallely Gonzalez RN) Adoption Requested: No (05/12/2016 19:17:Nallely Gonzalez RN) Pt Contact w/infant Post : N/A (05/12/2016 19:17:Nallely Gonzalez RN) LABS Blood Type: A Negative (05/12/2016 19:17:Valentina Pyle RN) Antibody Screen: negative (05/12/2016 19:17:Valentina Pyle RN) Rho(G) this : Yes (05/12/2016 19:17:Carlos Bradley RN) Date Rho(G) Given: 02/19/16 (05/12/2016 19:17:Carlos Bradley RN) Hemoglobin: 10.1 L (05/14/2016 19:45:QS system process) Hematocrit: 29.2 L (05/14/2016 19:45:QS system process) MCV: 81 (05/14/2016 19:45:QS system process) Group Beta Strep: negative (05/12/2016 19:17:Valentina Pyle RN) Gonorrhea: Negative (05/12/2016 19:17:Valentina Pyle RN) Chlamydia: Negative (05/12/2016 19:17:Valentina Pyle RN) RPR/VDRL: Nonreactive (05/12/2016 19:17:Valentina Pyle RN) HIV Exposure Test: Negative (05/12/2016 19:17:Valentina Pyle RN) Hepatitis B: Negative (05/12/2016 19:17:Carlos Bradley RN) Rubella: Non-Immune (05/12/2016 19:17:Carlos Bradley RN) Varicella: Negative (05/12/2016 19:17:Carlos Bradley RN) Varicella Titer: 60 (05/12/2016 19:17:Carlos Bradley RN) OB/PREVIOUS HISTORY Current Procedures: Ultrasound; NST (05/12/2016 19:17:Nallely Gonzalez RN) History of Previous : No (05/12/2016 19:17:Nallely Gonzalez RN) History of Gestational Diabetes: No (05/12/2016 19:17:Nallely Gonzalez RN) History of PIH: No (05/12/2016 19:17:Nallely Gonzalez RN) History of Incompetent Cervix: No (05/12/2016 19:17:Nallely Gonzalez RN) History of Placenta Previa/Abrup: No (05/12/2016 19:17:Nallely Gonzalez RN) History of Macrosomia: No (05/12/2016 19:17:Nallely Gonzalez RN) History of IUGR: No (05/12/2016 19:17:Nallely Gonzalez RN) History of Hemorrhage: No (05/12/2016 19:17:Nallely Gonzalez RN) History of Loss/Stillborn: No (05/12/2016 19:17:Nallely Gonzalez RN) History of : No (05/12/2016 19:17:Nallely Gonzalez RN) History of D (Rh) Sensitization: No (05/12/2016 19:17:Nallely Gonzalez RN) History Recurrent Loss/Stillborn: No (05/12/2016 19:17:Nallely Gonzalez RN) History Depression/PP Depression: No (05/12/2016 19:17:Nallely Gonzalez RN) History of Uterine Anomaly/FRIEDA: No (05/12/2016 19:17:Nallely Gonzalez RN) History of Infertility: No (05/12/2016 19:17:Nallely Gonzalez RN) History of ART Treatment: No (05/12/2016 19:17:Nallely Gonzalez RN) History of FRIEDA: No (05/12/2016 19:17:Nallely Gonzalez RN) Comments Obstetrical History: G1: SAB G2: SAB G3: Current (05/12/2016 19:17:Valentina Pyle RN) MEDICAL HISTORY Med Hx Diabetes: No (05/12/2016 19:17:Nallely Gonzalez RN) Med Hx Hypertension: No (05/12/2016 19:17:Nallely Gonzalez RN) Med Hx Heart Disease: No (05/12/2016 19:17:Nallely Gonzalez RN) Med Hx Autoimmune Disorder: No (05/12/2016 19:17:Nallely Gonzalez RN) Med Hx Kidney Disease/UTI: No (05/12/2016 19:17:Nallely Gonzalez RN) Med Hx Neurologic/Epilepsy: No (05/12/2016 19:17:Nallely Gonzalez RN) Med Hx Psychiatric Disorders: No (05/12/2016 19:17:Nallely Gonzalez RN) Med Hx Hepatitis/Liver Disease: No (05/12/2016 19:17:Nallely Gonzalez RN) Med Hx Varicosities/Phlebitis: No (05/12/2016 19:17:Nallely Gonzalez RN) Med Hx Thyroid Dysfunction: No (05/12/2016 19:17:Nallely Gonzalez RN) Med Hx Trauma/Violence: No (05/12/2016 19:17:Nallely Gonzalez RN) Med Hx Blood Transfusion: No (05/12/2016 19:17:Nallely Gonzalez RN) Med Hx Pulmonary (Asthma,TB): No (05/12/2016 19:17:Nallely Gonzalez RN) Med Hx Breast: No (05/12/2016 19:17:Nallely Gonzalez RN) Med Hx STEEL RULE DIE MAKER Surgery: No (05/12/2016 19:17:Nallely Gonzalez RN) Med Hx Hospitalization/Surgery: No (05/12/2016 19:17:Nallely Gonzalez RN) Med Hx Anesthetic Complications: No (05/12/2016 19:17:Nallely Gonzalez RN) Med Hx Abnormal Pap Smear: No (05/12/2016 19:17:Nallely Gonzalez RN) Other Medical Diseases: No (05/12/2016 19:17:Nallely Gonzalez RN) Med Hx Significant Family Hx: No (05/12/2016 19:17:Nallely Gonzalez RN) Details of Med/Surg Hx: Obesity (05/12/2016 19:17:Carlos Bradley RN) INFECTIOUS HISTORY Inf Hx Gonorrhea: No (05/12/2016 19:17:Nallely Gonzalez RN) Inf Hx Chlamydia: Yes (05/12/2016 19:17:Valentina Pyle RN) Inf Hx Syphilis: No (05/12/2016 19:17:Nallely Gonzalez RN) Inf Hx HIV/AIDS: No (05/12/2016 19:17:Nallely Gonzalez RN) Inf Hx Human Papilloma Virus: No (05/12/2016 19:17:Nallely Gonzalez RN) Inf Hx Pt/Partner Genital Herpes: No (05/12/2016 19:17:Nallely Gonzalez RN) Inf Hx Tuberculosis/Exposure: No (05/12/2016 19:17:Nallely Gonzalez RN) Inf Hx Hepatitis B,C: No (05/12/2016 19:17:Nallely Gonzalez RN) Inf Hx Rash or Viral Illness: No (05/12/2016 19:17:Nallely Gonzalez RN) Details of Infectious Hx: chlamydia in 2012 and 2014 (05/12/2016 19:17:Carlos Bradley RN) GENETIC HISTORY Gen Hx Age >=35 at SHAW[facility]: No (05/12/2016 19:17:Nallely Gonzalez RN) Gen Hx Thalassemia: No (05/12/2016 19:17:Nallely Gonzalez RN) Gen Hx Congenital Heart Defect: No (05/12/2016 19:17:Nallely Gonzalez RN) Gen Hx Neural Tube Defect: No (05/12/2016 19:17:Nallely Gonzalez RN) Gen Hx Down's Syndrome: No (05/12/2016 19:17:Nallely Gonzalez RN) Gen Hx Christ-Sachs: No (05/12/2016 19:17:Nallely Gonzalez RN) Gen Hx Tera: No (05/12/2016 19:17:Nallely Gonzalez RN) Gen Hx Familial Dysautonomia: No (05/12/2016 19:17:Nallely Gonzalez RN) Gen Hx Sickle Cell Disease/Trait: No (05/12/2016 19:17:Nallely Gonzalez RN) Gen Hx Hemophilia/Blood Disorder: No (05/12/2016 19:17:Nallely Gonzalez RN) Gen Hx Muscular Dystrophy: No (05/12/2016 19:17:Nallely Gonzalez RN) Gen Hx Cystic Fibrosis: No (05/12/2016 19:17:Nallely Gonzalez RN) Gen Hx Huntingtons Chorea: No (05/12/2016 19:17:Nallely Gonzalez RN) Gen Hx Mental Retardation/Autism: No (05/12/2016 19:17:Nallely Gonzalez RN) Gen Hx Tested for Fragile X: No (05/12/2016 19:17:Nallely Gonzalez RN) Gen Hx Other Inher/Chromosomal: No (05/12/2016 19:17:Nallely Gonzalez RN) Gen Hx Maternal Metabolic DO: No (05/12/2016 19:17:Nallely Gonzalez RN) Gen Hx Pt Father or FOB Defect: No (05/12/2016 19:17:Nallely Gonzalez RN) Gen Hx Other Genetic History: No (05/12/2016 19:17:Nallely Gonzalez RN) Gen Hx Drugs/Meds since LMP: Yes (05/12/2016 19:17:Valentina Pyle RN) Gen Hx Medications: pnv, iron (05/12/2016 19:17:Valentina Pyle, DANYA)
[2016-05-15] MEDS ORDERED: ONDANSETRON HCL INJ/PF 4 MG/2 ML SDV IV ONE (07:23)
[2016-05-15] MEDS ORDERED: ONDANSETRON HCL 8 MG TABLET PO ONE (07:41)
[2016-05-15] MEDS ORDERED: ONDANSETRON 4 MG TAB.RAPDIS ONE (07:46)
--- NOTE | 2016-05-15 08:00 | L&D Flow Sheet ---
LD Flowsheet Datetime Report Generated by CPN: 05/15/2016 08:00 Datetime: 05/15/2016 07:39 NBP Sys/Pricilla/Mean (mmHg): 134 (QS system process) : 80 (QS system process) : 101 (QS system process) Pulse: 106 (QS system process) LaborFlag: Antepartum (QS system process) Datetime: 05/15/2016 07:29 Stage of : Antepartum (Elli Suazo, RN) Respirations: 16 (Elli Suazo, RN) Monitor Mode: External (Elli Suazo, RN) Monitor Interventions for UA: [place] Adjusted (Elli Suazo, RN) Frequency (min): 4-5 (Elli Suazo RN) Quality: Mild/Moderate (Elli Suazo, RN) Duration (sec): 50-80 (Elli Suazo, RN) Resting Tone (Palpate): Relaxed (Elli Suazo, RN) Monitor Mode: External US (Elli Suazo, RN) Monitor Interventions for FHR: Ultrasound Adjusted (Elli Suazo, RN) FHR Baseline Rate : 140 (Elli Suazo, RN) FHR Baseline Changes: No Baseline Change (Elli Suazo RN) Variability: Moderate 6-25 bpm (Elli Suazo, RN) Accelerations: None (Elli Suazo, DANYA) Decelerations: None (Elli Suazo, RN) Pain Presence: Intermittent (Elli Suazo, DANYA) Pain Type: Cramping (Elli Suazo, RN) Pain Location: Abdomen (Elli Suazo, RN) Pain Relief Measures: Comfort Measures (Elli Suazo, DANYA) Pain Coping: Sleeping (Elli Suazo, RN) IV/Blood Work: IV Infusing per Order (Elli Suazo, RN) Comfort Measures: Family Support (Elli Suazo, RN) I/O Interventions: Up to BR (Elli Suazo, RN) Communication: RN at Bedside; RN Reviewed Strip (Elli Suazo, RN) Communication Comments: PT DOZING, LEFT UNDISTURBED. (Elli Suazo, DANYA) LaborFlag: Antepartum (QS system process) Datetime: 05/15/2016 07:15 Communication: Report Given to @ LHarishland, RN; care relinquished at this time. (Nallely Field, RN) Datetime: 05/15/2016 07:05 Monitor Interventions for FHR: Ultrasound Adjusted (Nallely Field, RN) Comments: RN at bedside for monitor adjustment and maternal reposition (Nallely Field, RN) Datetime: 05/15/2016 07:04 NBP Sys/Pricilla/Mean (mmHg): 125 (QS system process) : 63 (QS system process) : 87 (QS system process) Pulse: 82 (QS system process) Datetime: 05/15/2016 07:00 Monitor Mode: External; Palpation (Nallely Gonzalez, RN) Frequency (min): 3-3.5 (Nallely Gonzalez, RN) Quality: Mild/Moderate (Nallely Gonzalez, RN) Duration (sec): 60-100 (Nallely Gonzalez, RN) Resting Tone (Palpate): Relaxed (Nallely Gonzalez, RN) Monitor Mode: External US (Nallely Gonzalez, RN) Monitor Interventions for FHR: Ultrasound Adjusted (Nallely Gonzalez, RN) FHR Baseline Rate : 140 (Nallely Gonzalez, RN) Variability: Moderate 6-25 bpm (Nallely Gonzalez, RN) Accelerations: 15X15 (Nallely Gonzalez, RN) Decelerations: Variable (Nallely Gonzalez, RN) Comments: RN at bedside monitor adjustment and maternal reposition (Nallely Gonzalez, RN) Datetime: 05/15/2016 06:45 Patient Care Comments: patient vomiting (Nallely Gonzalez, RN) Datetime: 05/15/2016 06:35 Patient Care Comments: Patient sitting up on side of bed (Nallely Gonzalez, RN) Datetime: 05/15/2016 06:31 I/O Interventions: Up to BR (Nallely Gonzalez, RN) Datetime: 05/15/2016 06:30 Monitor Mode: External; Palpation (Nallely Gonzalez, RN) Frequency (min): x1 (Nallely Gonzalez, RN) Quality: Mild (Nallely Gonzalez, RN) Duration (sec): 50 (Nallely Gonzalez, RN) Resting Tone (Palpate): Relaxed (Nallely Gonzalez, RN) Monitor Mode: External US (Nallely Gonzalez, RN) FHR Baseline Rate : 140 (Nallely Gonzalez, RN) Variability: Moderate 6-25 bpm (Nallely , RN) Accelerations: 15X15 (Nallely Field, RN) Decelerations: Variable (Nallely Field, RN) Patient Care Comments: Patient sitting up on side of bed (Nallely Gonzalez, RN) Datetime: 05/15/2016 06:09 Patient Care Comments: patient vomiting (Nallely Field, RN) Datetime: 05/15/2016 06:05 NBP Sys/Pricilla/Mean (mmHg): 126 (QS system process) : 59 (QS system process) : 85 (QS system process) Pulse: 86 (QS system process) Datetime: 05/15/2016 06:00 Monitor Mode: External; Palpation (Nallely Field, RN) Frequency (min): Irritability (Nallely Field, RN) Quality: Mild (Nallely Field, RN) Resting Tone (Palpate): Relaxed (Nallely Field, RN) Monitor Mode: External US (Nallely Field, RN) FHR Baseline Rate : 135 (Nallely Field, RN) Variability: Moderate 6-25 bpm (Nallely Field, RN) Accelerations: 15X15 (Nallely Field, RN) Decelerations: Variable (Nallely Field, RN) Datetime: 05/15/2016 05:34 NBP Sys/Pricilla/Mean (mmHg): 110 (QS system process) : 57 (QS system process) : 77 (QS system process) Pulse: 88 (QS system process) Datetime: 05/15/2016 05:30 Monitor Mode: External; Palpation (Nallely Field, RN) Frequency (min): Irritability (Nallely Field, RN) Quality: Mild (Nallely Field, RN) Resting Tone (Palpate): Relaxed (Nallely Field, RN) Monitor Mode: External US (Nallely Field, RN) FHR Baseline Rate : 135 (Nallely Field, RN) Variability: Moderate 6-25 bpm (Nallely Field, RN) Accelerations: 10X10 (Nallely Field, RN) Decelerations: None (Nallely Field, RN) Datetime: 05/15/2016 05:22 I/O Interventions: Up to BR (Nallely Field, RN) Datetime: 05/15/2016 05:04 NBP Sys/Pricilla/Mean (mmHg): 133 (QS system process) : 74 (QS system process) : 97 (QS system process) Pulse: 86 (QS system process) Datetime: 05/15/2016 05:00 Monitor Mode: External; Palpation (Nallely Field, RN) Frequency (min): x3 (Nallely Field, RN) Quality: Mild (Nallely Field, RN) Duration (sec): 50-70 (Nallely Field, RN) Resting Tone (Palpate): Relaxed (Nallely Field, RN) Monitor Mode: External US (Nallely Field, RN) FHR Baseline Rate : 130 (Nallely Field, RN) Variability: Moderate 6-25 bpm (Nallely Field, RN) Accelerations: 15X15 (Nallely Field, RN) Decelerations: None (Nallely Field, RN) Datetime: 05/15/2016 04:47 Analgesics/Sedatives: Phenergan (mg) @ 12.5 (Nallely Field, RN) Datetime: 05/15/2016 04:40 I/O Interventions: Up to BR (Nallely , RN) Datetime: 05/15/2016 04:36 Communication: RN Reviewed Strip; Provider Orders Received; Call/Page Placed to Provider (Nallely Gonzalez RN) Communication Comments: Informed Dr. Cardona of patient vomiting; orders received for Phenergan 12.5 mg IV now (Nallely Gonzalez, DANYA) Datetime: 05/15/2016 04:34 NBP Sys/Pricilla/Mean (mmHg): 120 (QS system process) : 70 (QS system process) : 89 (QS system process) Pulse: 113 (QS system process) Datetime: 05/15/2016 04:30 Monitor Mode: External; Palpation (Nallely Field, RN) Frequency (min): x3 (Nallely Field, RN) Quality: Mild (Nallely Field, RN) Duration (sec): 50-60 (Nallely Field, RN) Resting Tone (Palpate): Relaxed (Nallely Field, RN) Monitor Mode: External US (Nallely Field, RN) FHR Baseline Rate : 135 (Nallely Field, RN) Variability: Moderate 6-25 bpm (Nallely Field, RN) Accelerations: 10X10 (Nallely Field, RN) Decelerations: None (Nallely Field, RN) Datetime: 05/15/2016 04:04 NBP Sys/Pricilla/Mean (mmHg): 125 (QS system process) : 70 (QS system process) : 93 (QS system process) Pulse: 83 (QS system process) Datetime: 05/15/2016 04:00 Monitor Mode: External; Palpation (Nallely Field, RN) Frequency (min): Irritability (Nallely Field, RN) Quality: Mild (Nallely Field, RN) Resting Tone (Palpate): Relaxed (Nallely Field, RN) Monitor Mode: External US (Nallely Field, RN) FHR Baseline Rate : 130 (Nallely Field, RN) Variability: Moderate 6-25 bpm (Nallely Field, RN) Accelerations: 10X10 (Nallely Field, RN) Decelerations: None (Nallely Field, RN) Datetime: 05/15/2016 03:34 NBP Sys/Pricilla/Mean (mmHg): 132 (QS system process) : 76 (QS system process) : 99 (QS system process) Pulse: 81 (QS system process) Datetime: 05/15/2016 03:30 Monitor Mode: External; Palpation (Anllely Field, RN) Frequency (min): Irritability (Nallely Field, RN) Quality: Mild (Nallely Field, RN) Resting Tone (Palpate): Relaxed (Nallely Field, RN) Monitor Mode: External US (Nallely Field, RN) FHR Baseline Rate : 125 (Nallely Field, RN) Variability: Moderate 6-25 bpm (Nallely Field, RN) Accelerations: 15X15 (Nallely Field, RN) Decelerations: None (Nallely Field, RN) Datetime: 05/15/2016 03:11 I/O Interventions: Up to BR (Nallely Field, RN) Datetime: 05/15/2016 03:04 NBP Sys/Pricilla/Mean (mmHg): 141 (QS system process) : 82 (QS system process) : 107 (QS system process) Pulse: 82 (QS system process) Datetime: 05/15/2016 03:00 Monitor Mode: External; Palpation (Nallely Field, RN) Frequency (min): Irritability (Nallely Field, RN) Quality: Mild (Nallely Field, RN) Resting Tone (Palpate): Relaxed (Nallely Field, RN) Monitor Mode: External US (Nallely Field, RN) FHR Baseline Rate : 130 (Nallely Field, RN) Variability: Moderate 6-25 bpm (Nallely Field, RN) Accelerations: 10X10 (Nallely Field, RN) Decelerations: None (Nallely Field, RN) Datetime: 05/15/2016 02:34 NBP Sys/Pricilla/Mean (mmHg): 125 (QS system process) : 75 (QS system process) : 96 (QS system process) Pulse: 81 (QS system process) Datetime: 05/15/2016 02:30 Monitor Mode: External; Palpation (Nallely Field, RN) Frequency (min): Irritability (Nallely Field, RN) Quality: Mild/Moderate (Nallely Field, RN) Resting Tone (Palpate): Relaxed (Nallely Field, RN) Monitor Mode: External US (Nallely Field, RN) FHR Baseline Rate : 130 (Nallely Field, RN) Variability: Moderate 6-25 bpm (Nallely Field, RN) Accelerations: 15X15 (Nallely Field, RN) Decelerations: None (Nallely Field, RN) Datetime: 05/15/2016 02:05 NBP Sys/Pricilla/Mean (mmHg): 137 (QS system process) : 93 (QS system process) : 111 (QS system process) Pulse: 82 (QS system process) Datetime: 05/15/2016 02:00 Monitor Mode: External; Palpation (Nallely Field, RN) Frequency (min): Irritability (Nallely Field, RN) Quality: Mild (Nallely Field, RN) Resting Tone (Palpate): Relaxed (Nallely Field, RN) Monitor Mode: External US ([facility], RN) FHR Baseline Rate : 125 (Nallely Field, RN) Variability: Moderate 6-25 bpm (Nallely Field, RN) Accelerations: 15X15 (Nallely Field, RN) Decelerations: None (Nallely Field, RN) Datetime: 05/15/2016 01:48 Cervical Ripening Agents: Cervidil ([facility], RN) Datetime: 05/15/2016 01:45 Analgesics/Sedatives: Ambien (mg) @ 5 PO (Nallely Field, RN) Datetime: 05/15/2016 01:38 I/O Interventions: Up to BR (Nallely Field, RN) Datetime: 05/15/2016 01:37 IV/Blood Work: New IV Bag Hung; IV Bag Number @ 2 (Nallely Field, RN) Datetime: 05/15/2016 01:34 NBP Sys/Pricilla/Mean (mmHg): 137 (QS system process) : 85 (QS system process) : 107 (QS system process) Pulse: 73 (QS system process) Datetime: 05/15/2016 01:30 Monitor Mode: External; Palpation (Nallely Field, RN) Frequency (min): x2 (Nallely Field, RN) Quality: Mild (Nallely Field, RN) Duration (sec): 50 (Nallely Field, RN) Resting Tone (Palpate): Relaxed (Nallely Field, RN) Monitor Mode: External US (Nallely Field, RN) FHR Baseline Rate : 135 (Nallely Field, RN) Variability: Moderate 6-25 bpm (Nallely Field, RN) Accelerations: 15X15 (Nallely Field, RN) Decelerations: None (Nallely Field, RN) Datetime: 05/15/2016 01:27 Communication: RN Reviewed Strip; Provider Orders Received; Call/Page Placed to Provider (Nallely Gonzalez, RN) Communication Comments: Informed Dr. Cardona that Cervidil came out while using bathroom and patient asking for Ambien; orders received to insert another Cervidil and to give Ambien 5 mg now. (Nallely Gonzalez, RN) Datetime: 05/15/2016 01:18 Medication Comments: Cervidil came out while patient was using bathroom (Nallely Field, RN) Datetime: 05/15/2016 01:08 I/O Interventions: Up to BR (Nallely Field, RN) Datetime: 05/15/2016 01:04 NBP Sys/Pricilla/Mean (mmHg): 124 (QS system process) : 76 (QS system process) : 93 (QS system process) Pulse: 78 (QS system process) Datetime: 05/15/2016 01:00 Monitor Mode: External; Palpation (Nallely Field, RN) Frequency (min): Irritability (Nallely Field, RN) Quality: Mild (Nallely Field, RN) Resting Tone (Palpate): Relaxed (Nallely Field, RN) Monitor Mode: External US (Nallely Field, RN) FHR Baseline Rate : 135 (Nallely Field, RN) Variability: Moderate 6-25 bpm (Nallely Field, RN) Accelerations: 15X15 (Nallely Field, RN) Decelerations: None (Nallely Field, RN) Datetime: 05/15/2016 00:30 Monitor Mode: External; Palpation (Nallely Field, RN) Frequency (min): x2 (Nallely Field, RN) Quality: Mild (Nallely Field, RN) Duration (sec): 60-90 (Nallely Field, RN) Resting Tone (Palpate): Relaxed (Nallely Field, RN) Monitor Mode: External US (Nallely Field, RN) FHR Baseline Rate : 135 (Nallely Field, RN) Variability: Moderate 6-25 bpm (Nallely Field, RN) Accelerations: 15X15 (Nallely Field, RN) Decelerations: None (Nallely Field, RN) I/O Interventions: Up to BR (Nallely Field, RN) Datetime: 05/15/2016 00:00 Monitor Mode: External; Palpation (Nallely Field, RN) Frequency (min): x3 (Nallely Field, RN) Quality: Mild (Nallely Field, RN) Duration (sec): 50-100 (Nallely Field, RN) Resting Tone (Palpate): Relaxed (Nallely Field, RN) Monitor Mode: External US (Nallely Field, RN) FHR Baseline Rate : 135 (Nallely Field, RN) Variability: Moderate 6-25 bpm (Nallely Field, RN) Accelerations: 15X15 (Nallely Field, RN) Decelerations: None (Nallely Field, RN) Datetime: 05/14/2016 23:57 I/O Interventions: Up to BR (Nallely Field, RN) Datetime: 05/14/2016 23:35 NBP Sys/Pricilla/Mean (mmHg): 134 (QS system process) : 77 (QS system process) : 100 (QS system process) Pulse: 89 (QS system process) Datetime: 05/14/2016 23:30 Monitor Mode: External; Palpation (Nallely Field, RN) Frequency (min): x2 (Nallely Field, RN) Quality: Mild (Nallely Field, RN) Duration (sec): 60 (Nallely Field, RN) Resting Tone (Palpate): Relaxed (Nallely Field, RN) Monitor Mode: External US (Nallely Field, RN) FHR Baseline Rate : 135 (Nallely Field, RN) Variability: Moderate 6-25 bpm (Nallely Field, RN) Accelerations: 15X15 (Nallely Field, RN) Decelerations: None (Nallely Field, RN) Datetime: 05/14/2016 23:09 I/O Interventions: Up to BR (Nallely Field, RN) Datetime: 05/14/2016 23:04 NBP Sys/Pricilla/Mean (mmHg): 128 (QS system process) : 77 (QS system process) : 98 (QS system process) Pulse: 87 (QS system process) Datetime: 05/14/2016 23:00 Monitor Mode: External; Palpation (Nallely Gonzalez, RN) Frequency (min): 1-2 (Nallely Gonzalez, RN) Quality: Mild (Nallely , RN) Duration (sec): 40-80 (Nallely Field, RN) Resting Tone (Palpate): Relaxed (Nallely Field, RN) Monitor Mode: External US (Nallely Field, RN) FHR Baseline Rate : 140 (Nallely Field, RN) Variability: Moderate 6-25 bpm (Nallely Field, RN) Accelerations: 15X15 (Nallely Field, RN) Decelerations: None (Nallely Field, RN) Datetime: 05/14/2016 22:34 NBP Sys/Pricilla/Mean (mmHg): 132 (QS system process) : 71 (QS system process) : 96 (QS system process) Pulse: 94 (QS system process) Datetime: 05/14/2016 22:30 Monitor Mode: External; Palpation (Nallely Field, RN) Frequency (min): Irritability (Nallely Field, RN) Resting Tone (Palpate): Relaxed (Nallely Field, RN) Monitor Mode: External US (Nallely Field, RN) FHR Baseline Rate : 140 (Nallely Field, RN) Variability: Moderate 6-25 bpm (Nallely Field, RN) Accelerations: 15X15 (Nallely Field, RN) Decelerations: None (Nallely Field, RN) Datetime: 05/14/2016 22:25 I/O Interventions: Up to BR (Nallely Field, RN) Datetime: 05/14/2016 22:04 NBP Sys/Pricilla/Mean (mmHg): 130 (QS system process) : 68 (QS system process) : 94 (QS system process) Pulse: 82 (QS system process) Datetime: 05/14/2016 22:00 Monitor Mode: External; Palpation (Nallely Field, RN) Frequency (min): Irritability (Nallely Field, RN) Resting Tone (Palpate): Relaxed (Nallely Field, RN) Monitor Mode: External US (Nallely Field, RN) FHR Baseline Rate : 140 (Nallely Field, RN) Variability: Moderate 6-25 bpm (Nallely Field, RN) Accelerations: 15X15 (Nallely Field, RN) Decelerations: None (Nallely Field, RN) Datetime: 05/14/2016 21:34 NBP Sys/Pricilla/Mean (mmHg): 121 (QS system process) : 66 (QS system process) : 87 (QS system process) Pulse: 80 (QS system process) Datetime: 05/14/2016 21:30 Monitor Mode: External; Palpation (Nallely Field, RN) Frequency (min): Irritability (Nallely Field, RN) Resting Tone (Palpate): Relaxed (Nallely Field, RN) Monitor Mode: External US (Nallely Field, RN) FHR Baseline Rate : 140 (Nallely Field, RN) Variability: Moderate 6-25 bpm (Nallely Field, RN) Accelerations: 15X15 (Nallely Field, RN) Decelerations: None (Nallely Field, RN) Datetime: 05/14/2016 21:04 NBP Sys/Pricilla/Mean (mmHg): 140 (QS system process) : 72 (QS system process) : 100 (QS system process) Pulse: 79 (QS system process) Datetime: 05/14/2016 21:00 Monitor Mode: External; Palpation (Nallely Field, RN) Frequency (min): x1 (Nallely Field, RN) Duration (sec): 60 (Nallely Field, RN) Resting Tone (Palpate): Relaxed (Nallely Field, RN) Monitor Mode: External US (Nallely Field, RN) FHR Baseline Rate : 140 (Nallely Field, RN) Variability: Moderate 6-25 bpm (Nallely Field, RN) Accelerations: 15X15 (Nallely Field, RN) Decelerations: None (Nallely Field, RN) Datetime: 05/14/2016 20:34 NBP Sys/Pricilla/Mean (mmHg): 127 (QS system process) : 75 (QS system process) : 96 (QS system process) Pulse: 91 (QS system process) Datetime: 05/14/2016 20:30 Monitor Mode: External; Palpation (Nallely Field, RN) Frequency (min): Irritability (Nallely Field, RN) Resting Tone (Palpate): Relaxed (Nallely Field, RN) Monitor Mode: External US (Nallely Field, RN) FHR Baseline Rate : 145 (Nallely Field, RN) Variability: Moderate 6-25 bpm (Nallely Field, RN) Accelerations: 15X15 (Nallely Field, RN) Decelerations: None (Nallely Field, RN) Datetime: 05/14/2016 20:26 Cervical Ripening Agents: Cervidil (Nallely Field, RN) Datetime: 05/14/2016 20:25 Dilatation (cm): 1.0 (Nallely , RN) Effacement (%): 60 (Nallely , RN) [facility] Exam by: DANYA Kenny ([facility], ) Datetime: 05/14/2016 20:17 I/O Interventions: Up to BR (Nallely Gonzalez, RN) Datetime: 05/14/2016 20:00 Monitor Mode: External; Palpation (Nallely , RN) Frequency (min): Irritability (Nallely Field, RN) Resting Tone (Palpate): Relaxed (Nallely Gonzalez RN) Monitor Mode: External US (Nallely Gonzalez RN) FHR Baseline Rate : 140 (Nallely Gonzalez RN) Variability: Moderate 6-25 bpm (Nallely Gonzalez RN) Accelerations: 15X15 (Nallely Gonzalez RN) Decelerations: None (Nallely Gonzalez RN)
[2016-05-15] MEDS ORDERED: MISOPROSTOL 0.2 MG TABLET ONE (10:31)
[2016-05-15] MEDS ORDERED: OXYTOCIN/NORMAL SALINE 20 UNIT/1,000 ML RTUINJ ONE (10:32)
[2016-05-15] MEDS ORDERED: LIDOCAINE 1% INJ-PF (10 MG/ML) 30 ML SDV ONE (10:32)
--- NOTE | 2016-05-15 10:35 | L&D Progress Notes ---
PROGRESS NOTES Datetime Report Generated by CPN: 05/15/2016 10:35 PROGRESS NOTE Impression: Reassuring Heart Rate Procedures: Artificial ROM; Sterile Vag Exam Procedures- Other: thick mec Plan: Induction Informed Consent Obtained: Vaginal Delivery Vital Signs : Reviewed; Within Normal Limits Comment: irregular ctx, denies concerns AROM, thick mec Start pitocin per protocol VAGINAL EXAM Dilatation: 3 Effacement: 80 Station: 0 Contractions: irreg. MEMBRANES Membranes: Ruptured Amniotic Fluid Color: Meconium, Heavy FETUS A FHR - Baseline: 135 Monitoring: External US Variability: Moderate 6-25bpm Accelerations: 15X15 Decelerations: None FHR Category: Category I FETUS C SIGNATURE: [id number] Assignment: Boris Krishnan DO Signature: with User ID: [email or web address] : with User ID: [email or web address]
--- NOTE | 2016-05-15 12:01 | L&D Flow Sheet ---
LD Flowsheet Datetime Report Generated by CPN: 05/15/2016 12:00 Datetime: 05/15/2016 11:45 Stage of : Labor (Elli Suazo RN) Respirations: 18 (Elli Suazo RN) Monitor Mode: External (Elli Suazo RN) Monitor Interventions for UA: [place] Adjusted (Elli Suazo RN) Frequency (min): 2-3 (Elli Suazo RN) Quality: Moderate (Elli Suazo RN) Duration (sec): 55-70 (Elli Suazo RN) Resting Tone (Palpate): Relaxed (Elli Suazo RN) Monitor Mode: External US (Elli Suazo RN) Monitor Interventions for FHR: Ultrasound Adjusted (Elli Suazo RN) FHR Baseline Rate : 135 (Elli Suazo RN) FHR Baseline Changes: No Baseline Change (Elli Suazo RN) Variability: Moderate 6-25 bpm (Elli Suazo, RN) Accelerations: 15X15 (Elli Suazo, RN) Decelerations: None (Elli Suazo, RN) Pain Relief Measures: Comfort Measures (Elli Suazo, RN) Pain Coping: Breathing Through Contractions (Elli Suazo, RN) Pitocin (milliunit): Pitocin Remains (milliunits) @ 6 (Elli Suazo, RN) IV/Blood Work: IV Infusing per Order (Elli Suazo, RN) Patient Position/Activity: Standing (Elli Suazo, RN) Comfort Measures: Breathing/Relaxation; Family Support (Elli Suazo, RN) I/O Interventions: Up to BR (Elli Suazo, DANYA) Communication: RN at Bedside; RN Reviewed Strip (Elli Suazo, DANYA) LaborFlag: Labor (QS system process) Datetime: 05/15/2016 11:30 Stage of : Labor (Elli Suazo, DANYA) Respirations: 18 (Elli Suazo, DANYA) Monitor Mode: External (Elli Suazo, DANYA) Frequency (min): 2-3 (Elli Suazo RN) Quality: Mild/Moderate (Elli Suazo RN) Duration (sec): 65-70 (Elli Suazo, RN) Resting Tone (Palpate): Relaxed (Elli Suazo, RN) Monitor Mode: External US (Elli Suazo RN) FHR Baseline Rate : 145 (Elli Suazo RN) FHR Baseline Changes: No Baseline Change (Elli Suazo, DANYA) Variability: Moderate 6-25 bpm (Elli Suazo RN) Accelerations: 15X15 (Elli Suazo RN) Decelerations: None (Elli Suazo RN) Pain Scale: 2 (Elli Suazo RN) Pain Presence: Intermittent (Elli Suazo RN) Pain Type: Contraction (Elli Suazo RN) Pain Location: Abdomen (Elli Suazo, RN) Pain Relief Measures: Comfort Measures (Elli Suazo, DANYA) Pain Coping: Talking Through Contractions (Elli Suazo, DANYA) Pitocin (milliunit): Pitocin Increased to (milliunits) @ 6 (Elli Suazo, DANYA) IV/Blood Work: IV Infusing per Order (Elli Suazo, DANYA) Patient Position/Activity: Standing (Elli Suazo, DANYA) Comfort Measures: Rocking Chair; Family Support (Elli Suazo, DANYA) Communication: RN at Bedside; RN Reviewed Strip (Elli Suazo, DANYA) LaborFlag: Labor (QS system process) Datetime: 05/15/2016 11:15 Stage of : Labor (Elli Suazo, DANYA) Respirations: 18 (Elli Suazo, DANYA) Monitor Mode: External; Palpation (Elli Suazo, DANYA) Monitor Interventions for UA: [place] Adjusted (Elli Kendal Roulund, RN) Frequency (min): IRREG (Elli Suazo, RN) Quality: Mild/Moderate (Elli Suazo, RN) Duration (sec): 55-70 (Elli Suazo, RN) Resting Tone (Palpate): Relaxed (Elli Suazo, RN) Monitor Mode: External US (Elli Suazo, RN) Monitor Interventions for FHR: Ultrasound Adjusted (Elli Suazo, RN) FHR Baseline Rate : 135 (Elli Suazo, RN) FHR Baseline Changes: No Baseline Change (Elli Suazo, RN) Variability: Moderate 6-25 bpm (Elli Suazo, RN) Accelerations: 15X15 (Elli Suazo, RN) Decelerations: None (Elli Suazo, RN) Pain Relief Measures: Comfort Measures (Elli Suazo, DANYA) Pain Coping: Talking Through Contractions (Elli Suazo, DANYA) Pitocin (milliunit): Pitocin Increased to (milliunits) @ 4 (Elli Suazo, RN) IV/Blood Work: IV Infusing per Order (Elli Suazo, RN) Comfort Measures: Rocking Chair; Family Support (Elli Suazo, RN) Hygiene: Underpad Changed (Elli Suazo, RN) Communication: RN at Bedside; RN Reviewed Strip (Elli Suazo, RN) LaborFlag: Labor (QS system process) Datetime: 05/15/2016 11:11 NBP Sys/Pricilla/Mean (mmHg): 134 (QS system process) : 76 (QS system process) : 93 (QS system process) Pulse: 102 (QS system process) LaborFlag: Labor (QS system process) Datetime: 05/15/2016 11:02 I/O Interventions: Up to BR (Elli Suazo RN) Datetime: 05/15/2016 11:00 Stage of : Labor (Elli Suazo RN) Respirations: 18 (Elli Suazo RN) Monitor Mode: External (Elli Suazo RN) Monitor Interventions for UA: [place] Adjusted (Elli Suazo RN) Frequency (min): IRREG (Elli Suazo RN) Quality: Mild/Moderate (Elli Suazo RN) Duration (sec): 50-60 (Elli Suazo RN) Resting Tone (Palpate): Relaxed (Elli Suazo RN) Monitor Mode: External US (Elli Suazo RN) FHR Baseline Rate : 135 (Elli Suazo RN) FHR Baseline Changes: No Baseline Change (Elli Suazo RN) Variability: Moderate 6-25 bpm (Elli Suazo RN) Accelerations: 15X15 (Elli Suazo RN) Decelerations: None (Elli Suazo RN) Pain Relief Measures: Comfort Measures (Elli Suazo RN) Pain Coping: Talking Through Contractions (Elli Suazo RN) Pitocin (milliunit): Pitocin Remains (milliunits) @ 2 (Elli Suazo RN) Patient Position/Activity: Left Tilt; Low Fowlers (Elli Suazo RN) Comfort Measures: Family Support (Elli Suazo RN) Communication: RN at Bedside; RN Reviewed Strip (Elli Suazo RN) LaborFlag: Labor (QS system process) Datetime: 05/15/2016 10:50 Stage of : Labor (Elli Suazo RN) Pitocin (milliunit): Pitocin Started (milliunits) @ 2 (Elli Suazo RN) Communication: RN at Bedside; RN Reviewed Strip (Elli Suazo RN) Datetime: 05/15/2016 10:44 I/O Interventions: Up to BR (Elli Suazo RN) Datetime: 05/15/2016 10:40 NBP Sys/Pricilla/Mean (mmHg): 139 (QS system process) : 74 (QS system process) : 101 (QS system process) Pulse: 103 (QS system process) LaborFlag: Labor (QS system process) Datetime: 05/15/2016 10:30 Stage of : Labor (Elli Suazo RN) Respirations: 16 (Elli Suazo RN) Monitor Mode: External; Palpation (Elli Suazo RN) Monitor Interventions for UA: [place] Adjusted (Elli Suazo RN) Frequency (min): IRREG (Elli Suazo RN) Quality: Mild/Moderate (Elli Suazo, DANYA) Resting Tone (Palpate): Relaxed (Elli Suazo, RN) Monitor Mode: External US (Elli Suazo RN) Monitor Interventions for FHR: Ultrasound Adjusted (Elli Suazo RN) FHR Baseline Rate : 135 (Elli Suazo RN) FHR Baseline Changes: No Baseline Change (Elli Suazo, DANYA) Variability: Moderate 6-25 bpm (Elli Suazo, RN) Accelerations: 15X15 (Elli Suazo, RN) Decelerations: None (Elli Suazo, DANYA) Pain Scale: 2 (Elli Suazo, RN) Pain Presence: Intermittent (Elli Suazo, DANYA) Pain Type: Cramping (Elli Suazo, RN) Pain Location: Abdomen (Elli Suazo, DANYA) Pain Relief Measures: Comfort Measures (Elli Suazo, DANYA) Pain Coping: Talking Through Contractions (Elli Suazo, DANYA) Patient Position/Activity: Left Tilt; Low Fowlers (Elli Suazo, RN) Comfort Measures: Family Support (Elli Suazo, RN) I/O Interventions: Clear Liquids Given (Elli Suazo, RN) Communication: RN at Bedside; RN Reviewed Strip (Elli Suazo, RN) LaborFlag: Labor (QS system process) Datetime: 05/15/2016 10:26 Stage of : Labor (Elli Suazo RN) Dilatation (cm): 3.5 (Elli Suazo, DANYA) Effacement (%): 90 (Elli Suazo, RN) Station: -1 (Elli Suazo, RN) Exam by: Kalina MEEK CNM (Elli Suazo, RN) Membrane Status: Ruptured (Elli Suazo RN) Membranes Rupture Method: Artificial (Elli Suazo, RN) Amniotic Fluid Color: Heavy Meconium (Elli Suazo, RN) Amniotic Fluid Amount: Small (Elli Suazo, RN) Vaginal Bleeding: Normal Show (Elli Suazo RN) Cervix, Consistency: Soft (Elli Suazo, RN) Cervix, Position: Midposition (Elli Suazo, RN) Procedures: Sterile Vag Exam (Elli Suazo, RN) Provider Reviewed Strip: Yes (Elli Suazo RN) Instructional Method: Verbal; Patient Instructed; Family/Support Person Instructed (Elli Suazo, DANYA) Plan of Care: Plan of Care Discussed; Induction (Elli Suazo, RN) Labor/Induction: Labor Stages; Induction (Elli Suazo, RN) Pain Management: IV Narcotics; Epidural; Pain Scale/Goals; Comfort Measures (Elli Suazo, DANYA) Medications: Pitocin (Elli Suazo, RN) Communication: RN at Bedside; RN Reviewed Strip; Provider at Bedside (Elli Suazo, DANYA) Communication Comments: Kalina MEEK CNM @ BS (Elli Suazo, RN) Datetime: 05/15/2016 10:20 Stage of : Antepartum (Elli Suazo RN) IV/Blood Work: IV Started; IV Infusing per Order (Elli Suazo RN) Communication: RN at Bedside; RN Reviewed Strip (Elli Suazo RN) Datetime: 05/15/2016 10:10 Stage of : Antepartum (Elli Suazo RN) NBP Sys/Pricilla/Mean (mmHg): 124 (QS system process) : 61 (QS system process) : 86 (QS system process) Pulse: 94 (QS system process) Respirations: 16 (Elli Suazo, DANYA) Monitor Mode: External; Palpation (Elli Suazo RN) Monitor Interventions for UA: [place] Adjusted (Elli Suazo RN) Resting Tone (Palpate): Relaxed (Elli Suazo RN) Monitor Mode: External US (Elli Suazo RN) Monitor Interventions for FHR: Ultrasound Adjusted (Elli Suazo RN) FHR Baseline Rate : 135 (Elli Suazo, RN) Pain Presence: Intermittent (Elli Suazo, RN) Pain Type: Cramping (Elli Suazo, DANYA) Pain Location: Abdomen (Elli Suazo, DANYA) Pain Relief Measures: Comfort Measures (Elli Suazo RN) Pain Coping: Talking Through Contractions (Elli Suazo, DANYA) Patient Position/Activity: Left Tilt; Low Fowlers (Elli Suazo, DANYA) Comfort Measures: Family Support (Elli Suazo, DANYA) Hygiene: Oral Care; Shower; Underpad Changed; Gown Changed (Elli Suazo, RN) I/O Interventions: Up to BR (Elli Suazo, RN) Communication: RN at Bedside; RN Reviewed Strip (Elli Suazo RN) LaborFlag: Antepartum (QS system process) Datetime: 05/15/2016 08:21 Stage of : Antepartum (Elli Suazo RN) Respirations: 18 (Elli Suazo RN) Monitor Mode: External (Elli Suazo, RN) Monitor Interventions for UA: [place] Adjusted (Elli Suazo, DANYA) Frequency (min): 2-4 (Elli Suazo RN) Quality: Mild/Moderate (Elli Suazo, DANYA) Duration (sec): 50-60 (Elli uSazo, RN) Resting Tone (Palpate): Relaxed (Elli Suazo, DANYA) Monitor Mode: External US (Elli Suazo RN) Monitor Interventions for FHR: Ultrasound Adjusted (Elli Suazo RN) FHR Baseline Rate : 145 (Elli Suazo, DANYA) FHR Baseline Changes: No Baseline Change (Elli Suazo, DANYA) Variability: Minimal - Undetectable to <=5 bpm (Elli Suazo, DANYA) Accelerations: None (Elli Suazo RN) Decelerations: None (Elli Suazo RN) Pain Scale: 4 (Elli Kendal Roulund, RN) Pain Presence: Intermittent (Elli Suazo, DANYA) Pain Type: Cramping (Elli Suazo, RN) Pain Location: Abdomen (Elli Suazo, RN) Pain Relief Measures: Comfort Measures (Elli Suazo, RN) Pain Coping: Talking Through Contractions (Elli Suazo, RN) Pain Assessment Comments: pt talking _ dozing with uc's (Elli Suazo, RN) IV/Blood Work: IV Infusing per Order (Elli Suazo, RN) Patient Position/Activity: Left Tilt; Semi-Fowlers (Elli Suazo, RN) Comfort Measures: Family Support (Elli Suazo, RN) Hygiene: Oral Care; Shower; Underpad Changed; Gown Changed; Linens Changed (Elli Suazo, RN) I/O Interventions: Up to BR (Elli Suazo, RN) Communication: RN at Bedside; RN Reviewed Strip; Report Given to @ Kalina MEEK CNM (Elli Suazo, DANYA) Notification Reason: Status Update (Elli Suazo, DANYA) LaborFlag: Antepartum (QS system process) Datetime: 05/15/2016 08:06 Stage of : Antepartum (Elli Suazo RN) NBP Sys/Pricilla/Mean (mmHg): 132 (QS system process) : 69 (QS system process) : 93 (QS system process) Pulse: 95 (QS system process) Respirations: 16 (Elli Suazo RN) Temperature (F): 98.6 (Elli Suazo RN) Temperature (C): 37.0 (QS system process) Monitor Interventions for UA: [place] Adjusted (Elli Suazo RN) Monitor Interventions for FHR: Ultrasound Adjusted (Elli Suazo RN) Communication: RN at Bedside; RN Reviewed Strip (Elli Suazo RN) LaborFlag: Antepartum (QS system process) Datetime: 05/15/2016 08:00 Stage of : Antepartum (Elli Suazo RN) Respirations: 18 (Elli Suazo RN) Monitor Mode: External (Elli Suazo, RN) Monitor Interventions for UA: [place] Adjusted (Elli Suazo RN) Frequency (min): 2-4 (Elli Suazo RN) Quality: Mild/Moderate (Elli Suazo RN) Duration (sec): 55-70 (Elli Suazo, RN) Resting Tone (Palpate): Relaxed (Elli Suazo, DANYA) Monitor Mode: External US (Elli Suazo RN) Monitor Interventions for FHR: Ultrasound Adjusted (Elli Suazo RN) FHR Baseline Rate : 145 (Elli Suazo RN) FHR Baseline Changes: No Baseline Change (Elli Suazo RN) Variability: Moderate 6-25 bpm (Elli Suazo, DANYA) Accelerations: 10X10 (Elli Suazo, RN) Decelerations: None (Elli Suazo RN) Pain Relief Measures: Comfort Measures (Elli Suazo RN) Pain Coping: Talking Through Contractions (Elli Suazo, DANYA) IV/Blood Work: IV Infusing per Order (Elli Suazo, DANYA) Patient Position/Activity: Left Lateral; Low Fowlers (Elli Suazo, DANYA) Comfort Measures: Family Support (Elli Suazo, DANYA) Communication: RN at Bedside; RN Reviewed Strip (Elli Suazo, DANYA) LaborFlag: Antepartum (QS system process)
[2016-05-15] MEDS ORDERED: NALBUPHINE HCL INJ 10 MG/1 ML AMPULE INJ ONE (12:41)
[2016-05-15] MEDS ORDERED: NALBUPHINE HCL INJ 10 MG/1 ML AMPULE ONE (12:47)
[2016-05-15] MEDS ORDERED: ZOLPIDEM TARTRATE 5 MG TABLET PO PRN (14:49)
[2016-05-15] MEDS ORDERED: ACETAMINOPHEN WITH CODEINE #3 TABLET PO PRN ×2 (14:49)
[2016-05-15] MEDS ORDERED: MEASLES,MUMPS&RUBELLA VACC/PF 0.5 ML VIAL SUBCUT PRN (14:49)
[2016-05-15] MEDS ORDERED: DIPH/PERTUSS(ACELL)/TETANUS VAC/PF 0.5 ML SYR (>=10YO) IM PRN (14:49)
[2016-05-15] MEDS ORDERED: OXYTOCIN/NORMAL SALINE 1,000 ML IV PRN (14:49)
[2016-05-15] MEDS ORDERED: DIBUCAINE 1% OINTMENT 28 GM TP PRN (14:49)
[2016-05-15] MEDS ORDERED: BENZOCAINE/MENTHOL AEROSOL SPRAY 56 ML TOP PRN (14:49)
--- NOTE | 2016-05-15 15:24 | Admission Physical ---
Datetime Report Generated by CPN: 05/15/2016 15:23 CURRENT ADMISSION Hx Assessment: The History has been Reviewed and is Current Chief Complaint: Scheduled Induction of Labor Indication for Induction: Post Dates Admit Plan: Admit to Unit; Initiate Labor Induction Protocol ALLERGIES Medication Allergies: No Medication Allergies: No Known Allergies (05/13/2016) Latex: No Latex Allergies Food Allergies: N/A Environmental Allergies: N/A OBSTETRICAL HISTORY EDC: 05/08/2016 00:00 : 3 Para: 0 Term: 0 : 0 SAB: 2 IAB: 0 Ectopic: 0 Livin Cesareans: 0 VBACs: 0 Multiple Births: 0 Gestational Diabetes: No Rh Sensitization: No Incompetent Cervix: No FRIEDA: No Infertility: No ART Treatment: No Uterine Anomaly: No IUGR: No Hx Previous C/S: No Macrosomia: No Hx Loss/Stillborn: No PIH: No Hx : No Placenta Previa/Abruption: No Depression/PP Depression: No PTL/PROM: No Post Hemorrhage: No Current Procedures: Ultrasound; NST Obstetrical History Comments: G1: SAB G2: SAB G3: Current SEE RECORDS Alcohol: No Marijuana : No Cocaine: No Other Illicit Drugs: No Cigarettes: Never Smoker. 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 Surgery: No Heart Disease: No Hosp/Surgery: No Autoimmune Disorder: No Anesthetic Complications: No Kidney Disease: No Abnormal Pap Smear: No Neuro/Epilepsy: No Psychiatric Disorders: No Other Medical Diseases: No Hepatitis/Liver Disease: No Significant Family History: No Varicosities/Phlebitis: No Trauma/Violence : No Thyroid Dysfunction: No Medical History Comments: Obesity INFECTIOUS HISTORY Gonorrhea: No Genital Herpes: No Chlamydia: Yes Tuberculosis: No Syphilis: No Hepatitis: No HIV/AIDS Exposure: No Rash or Viral Illness: No HPV: No Infectious History Comments: chlamydia in 2012 and 2014 PHYSICAL EXAM General: Normal HEENT: Deferred Neurologic: Deferred Thyroid: Deferred Heart: Normal Lungs: Normal Breast: Deferred Back: Deferred Abdomen: Normal Genitourinary Exam: Normal Extremities: Normal DTRs: Normal Pelvic Type: Adequate Vital Signs: Reviewed; Within Normal Limits VAGINAL EXAM Dilatation: 3 Effacement: 80 Station: 0 Contraction Comments: irreg. MEMBRANES Membranes: Ruptured Amniotic Fluid Color: Meconium, Heavy FETUS A EGA: 40.6 FHR- Baseline: 140 Variability: Moderate 6-25bpm Accelerations: 15X15 Decelerations: None FHR Category: Category I Admit Comment: Post dates induction with cervidil. GBS neg PLANS FOR LABOR AND DELIVERY Labor and Delivery: None Pain Management: None Feeding Preference: Breast Benefit of Breast Feed Discussed: Yes Circumcision: N/A INFORMED CONSENT Informed Consent Obtained: Vaginal Delivery Signature: with User ID: [email or web address]
--- NOTE | 2016-05-15 16:01 | L&D Flow Sheet ---
LD Flowsheet Datetime Report Generated by CPN: 05/15/2016 16:00 Datetime: 05/15/2016 15:58 NBP Sys/Pricilla/Mean (mmHg): 139 (QS system process) : 66 (QS system process) : 95 (QS system process) Pulse: 108 (QS system process) Datetime: 05/15/2016 15:43 Stage of : Recovery (Elli Suazo, RN) NBP Sys/Pricilla/Mean (mmHg): 152 (QS system process) : 64 (QS system process) : 88 (QS system process) Pulse: 107 (QS system process) Respirations: 18 (Elli Suazo, RN) Pain Scale: 0 (Elli Suazo, RN) Pain Presence: None/Denies (Elli Suazo, RN) Pain Type: N/A (Elli Suazo, RN) Pain Relief Measures: Comfort Measures (Elli Suazo, RN) Datetime: 05/15/2016 15:28 Stage of : Recovery (Elli Suazo, DANYA) NBP Sys/Pricilla/Mean (mmHg): 136 (QS system process) : 78 (QS system process) : 100 (QS system process) Pulse: 110 (QS system process) Respirations: 18 (Elli Suazo, RN) Pain Scale: 0 (Elli Suazo, RN) Pain Presence: None/Denies (Elli Suazo, RN) Pain Type: N/A (Elli Suazo, RN) Pain Relief Measures: Comfort Measures (Elli Suazo, RN) Datetime: 05/15/2016 15:13 Stage of : Recovery (Elli Suazo RN) NBP Sys/Pricilla/Mean (mmHg): 130 (QS system process) : 78 (QS system process) : 95 (QS system process) Pulse: 102 (QS system process) Respirations: 18 (Elli Suazo, DANYA) Pain Scale: 0 (Elli Suazo RN) Pain Presence: None/Denies (Elli Suazo, RN) Pain Type: N/A (Elli Suazo, RN) Pain Relief Measures: Comfort Measures (Elli Suazo RN) Datetime: 05/15/2016 14:58 Stage of : Recovery (Elli Suazo RN) NBP Sys/Pricilla/Mean (mmHg): 119 (QS system process) : 60 (QS system process) : 81 (QS system process) Pulse: 114 (QS system process) Respirations: 18 (Elli Suazo RN) Pain Scale: 0 (Elli Suazo RN) Pain Presence: None/Denies (Elli Suazo, RN) Pain Type: N/A (Elli Suazo, DANYA) Pain Relief Measures: Comfort Measures (Elli Suazo, DANYA) Datetime: 05/15/2016 14:43 Stage of : Recovery (Elli Suazo RN) NBP Sys/Pricilla/Mean (mmHg): 130 (QS system process) : 58 (QS system process) : 83 (QS system process) Pulse: 118 (QS system process) Respirations: 18 (Elli Suazo RN) Pain Scale: 2 (Elli Suazo RN) Pain Presence: Constant (Elli Suazo RN) Pain Type: Sharp (Elli Suazo RN) Pain Location: Perineum (Annotations: WITH REPAIR) (Elli Suazo RN) Pain Goal: 1 (Elli Suazo RN) Pain Relief Measures: Comfort Measures (Elli Suazo RN) Datetime: 05/15/2016 14:35 Stage 2 Comments: Delivery liveborn female placed on maternal abdomen, dried and stimulated with spontaneous cry and respiratons. Delayed cord clamped abd cut by FOB. (CARISSA Sarabia) Datetime: 05/15/2016 14:30 Monitor Mode: Palpation (Liliana Camp, RNC) Monitor Interventions for UA: Sobieski Adjusted (Liliana Camp, RNC) Frequency (min): 1-2 (Liliana Camp, RNC) Quality: Moderate (Liliana Camp, RNC) Duration (sec): 70-100 (Liliana Camp, RNC) Pattern: Normal: <= 5 Contractions in 10 Minutes (Liliana Camp, RNC) Resting Tone (Palpate): Relaxed (Liliana Camp, RNC) Monitor Interventions for FHR: Ultrasound Adjusted (Liliana Camp, RNC) FHR Baseline Changes: Unable to Determine (Liliana Camp, RNC) Decelerations: Prolonged (Liliana Camp, RNC) Actions for Decelerations: Provider Reviewed Strip (Liliana Fede, RNC) Comments: pt crying and yelling, intense coaching by family and staff to maintain control and follow verbal commands. RN and provider remain at bedside attempting to auscultate FHR (Liliana Fede, RNC) Datetime: 05/15/2016 14:25 Comfort Measures: Breathing/Relaxation; Coaching; Family Support (Elli Suazo RN) Pushing: Coached on Pushing (Elli Suazo RN) Pushing Position: Pushing with Contractions; Pushing Lithotomy (Elli Suazo RN) Pushing Progress: Descent with Pushing (Elli Suazo RN) Preparation for Delivery: Perineal Prep Done; Setup for Delivery (Elli Suazo RN) Stage 2 Comments: rn AND kalina Meek cnm (Elli Suazo RN) Datetime: 05/15/2016 14:16 Stage of : Labor (Elli Suazo RN) Dilatation (cm): 10.0 (Elli Suazo RN) Effacement (%): 100 (Elli Suazo, RN) Station: 2 (Elli Suazo RN) Exam by: Kalina MEEK CNM (Elli Suazo RN) Procedures: Sterile Vag Exam (Elli Suazo, RN) Communication: RN at Bedside; RN Reviewed Strip; Provider at Bedside (Elli Suazo RN) Datetime: 05/15/2016 14:15 Monitor Mode: External; Palpation (CARISSA Sarabia) Monitor Interventions for UA: Sobieski Adjusted (Liliana Camp, RNC) Frequency (min): 2-4 (Liliana Camp, RNC) Quality: Moderate to Strong (Liliana Camp, RNC) Duration (sec): 50-70 (Liliana Camp, RNC) Duration Criteria: Less than Two 120 Second Contractions (Liliana Camp, RNC) Pattern: Normal: <= 5 Contractions in 10 Minutes (Liliana Camp, RNC) Resting Tone (Palpate): Relaxed (Liliana Camp, RNC) Monitor Mode: External US; Auscultation (Liliana Camp, RNC) Monitor Interventions for FHR: Ultrasound Adjusted (Liliana Camp, RNC) FHR Baseline Rate : 125 (Liliana Camp, RNC) FHR Baseline Changes: No Baseline Change (Liliana Camp, RNC) Variability: Minimal - Undetectable to <=5 bpm (Liliana Camp, RNC) Decelerations: Variable (Liliana Camp, RNC) Datetime: 05/15/2016 14:10 NBP Sys/Pricilla/Mean (mmHg): 126 (QS system process) : 61 (QS system process) : 87 (QS system process) Pulse: 89 (QS system process) Respirations: 16 (Liliana Camp, RNC) LaborFlag: Labor (QS system process) Datetime: 05/15/2016 14:00 Monitor Mode: External; Palpation (Liliana Camp, RNC) Frequency (min): 2-4 (Liliana Camp, RNC) Quality: Moderate to Strong (Liliana Camp, RNC) Duration (sec): 50-70 (Liliana Camp, RNC) Duration Criteria: Less than Two 120 Second Contractions (Liliana Camp, RNC) Pattern: Normal: <= 5 Contractions in 10 Minutes (Liliana Camp, RNC) Resting Tone (Palpate): Relaxed (Liliana Camp, RNC) Monitor Mode: External US; Auscultation (Liliana Camp, RNC) FHR Baseline Rate : 130 (Liliana Camp, RNC) FHR Baseline Changes: No Baseline Change (Liliana Camp, RNC) Variability: Minimal - Undetectable to <=5 bpm (Liliana Camp, RNC) Decelerations: Early; Variable (Liliana Camp, RNC) Datetime: 05/15/2016 13:45 Stage of : Labor (Elli Suazo RN) Respirations: 16 (Elli Suazo RN) Monitor Mode: External (Elli Suazo RN) Frequency (min): 2-3 (Elli Suazo RN) Quality: Moderate (Elli Suazo RN) Duration (sec): 55-65 (Elli Suazo RN) Resting Tone (Palpate): Relaxed (Elli Suazo RN) Monitor Mode: External US (Elli Suazo RN) FHR Baseline Rate : 130 (Elli Suazo RN) FHR Baseline Changes: No Baseline Change (Elli Suazo RN) Variability: Minimal - Undetectable to <=5 bpm (Elli Suazo RN) Accelerations: None (Elli Suazo RN) Decelerations: None (Elli Suazo RN) Pain Relief Measures: Comfort Measures (Elli Suazo RN) Pain Coping: Sleeping (Elli Suazo RN) Pitocin (milliunit): Pitocin Remains (milliunits) @ 12 (Elli Suazo, RN) IV/Blood Work: IV Infusing per Order (Elli Suazo, DANYA) Patient Position/Activity: Left Lateral; Low Fowlers (Elli Suazo, DANYA) Comfort Measures: Family Support (Elli Suazo, DANYA) Communication: RN at Bedside; RN Reviewed Strip (Elli Suazo RN) LaborFlag: Labor (QS system process) Datetime: 05/15/2016 13:41 NBP Sys/Pricilla/Mean (mmHg): 125 (QS system process) : 59 (QS system process) : 85 (QS system process) Pulse: 88 (QS system process) Respirations: 18 (CARISSA Sarabia) LaborFlag: Labor (QS system process) Datetime: 05/15/2016 13:30 Stage of : Labor (Elli Suazo RN) Respirations: 18 (Elli Suazo RN) Monitor Mode: External (Elli Suazo RN) Frequency (min): 2-4 (Elli Suazo, DANYA) Quality: Moderate (Elli Suazo RN) Duration (sec): 55-70 (Elli Suazo, DANYA) Resting Tone (Palpate): Relaxed (Elli Suazo RN) Monitor Mode: External US (Elli Suazo RN) Monitor Interventions for FHR: Ultrasound Adjusted (Elli Suazo RN) FHR Baseline Rate : 130 (Elli Suazo, DANYA) FHR Baseline Changes: No Baseline Change (Elli Suazo, DANYA) Variability: Minimal - Undetectable to <=5 bpm (Elli Suazo, DANYA) Accelerations: None (Elli Suazo, DANYA) Decelerations: None (Elli Suazo, DANYA) Pain Relief Measures: Comfort Measures (Elli Suazo, DANYA) Pain Coping: Sleeping (Elli Suazo, DNAYA) Pitocin (milliunit): Pitocin Increased to (milliunits) @ 12 (Elli Suazo, DANYA) IV/Blood Work: IV Infusing per Order (Elli Suazo, DANYA) Patient Position/Activity: Left Lateral; Low Fowlers (Elli Suazo, DANYA) Comfort Measures: Family Support (Elli Suazo, DANYA) Communication: RN at Bedside; RN Reviewed Strip (Elli Suazo RN) LaborFlag: Labor (QS system process) Datetime: 05/15/2016 13:15 Stage of : Labor (Elli Suazo RN) Respirations: 18 (Elli Suazo RN) Temperature (F): 98.1 (Elli Suazo RN) Temperature (C): 36.7 (QS system process) Monitor Mode: External (Elli Suazo RN) Monitor Interventions for UA: Sobieski Adjusted (Elli Suazo RN) Frequency (min): 2-3 (Elli Suazo RN) Quality: Moderate (Elli Suazo RN) Duration (sec): 55-70 (Elli Suazo, DANYA) Resting Tone (Palpate): Relaxed (Elli Suazo RN) Monitor Mode: External US (Elli Suazo RN) Monitor Interventions for FHR: Ultrasound Adjusted (Elli Suazo RN) FHR Baseline Rate : 130 (Elli Suazo RN) FHR Baseline Changes: No Baseline Change (Elli Suazo RN) Variability: Minimal - Undetectable to <=5 bpm (Elli Suazo, DANYA) Accelerations: None (Elli Suazo RN) Decelerations: None (Elli Suazo, DANYA) Pain Relief Measures: Comfort Measures (Elli Suazo RN) Pain Coping: Sleeping (Elli Suazo RN) Pitocin (milliunit): Pitocin Remains (milliunits) @ 10 (Elli Suazo, DANYA) Patient Position/Activity: Left Lateral; Low Fowlers (Elli Suazo RN) Comfort Measures: Family Support (Elli Suazo RN) Communication: RN at Bedside; RN Reviewed Strip (Elli Suazo RN) LaborFlag: Labor (QS system process) Datetime: 05/15/2016 13:10 NBP Sys/Pricilla/Mean (mmHg): 120 (QS system process) : 56 (QS system process) : 81 (QS system process) Pulse: 83 (QS system process) LaborFlag: Labor (QS system process) Datetime: 05/15/2016 13:00 Stage of : Labor (Elli Suazo RN) Respirations: 18 (Elli Suazo RN) Monitor Mode: External (Elli Suazo RN) Monitor Interventions for UA: Sobieski Adjusted (Elli Suazo RN) Frequency (min): 2-3 (Elli Suazo RN) Quality: Moderate (Elli Suazo RN) Duration (sec): 55-65 (Elli Suazo RN) Resting Tone (Palpate): Relaxed (Elli Suazo DANYA) Monitor Mode: External US (Elli Suazo, RN) Monitor Interventions for FHR: Ultrasound Adjusted (Elli Suazo, RN) FHR Baseline Rate : 135 (Elli Suazo, RN) FHR Baseline Changes: No Baseline Change (Elli Suazo, DANYA) Variability: Moderate 6-25 bpm (Elli Suazo, RN) Accelerations: None (Elli Suazo, RN) Decelerations: None (Elli Suazo, RN) Pain Scale: 0 (Elli Suazo, DANYA) Pain Presence: None/Denies (Elli Suazo, RN) Pain Type: N/A (Elli Suazo, DANYA) Pain Relief Measures: Pain Medication Given; Comfort Measures (Elli Suazo, DANYA) Pain Coping: Sleeping (Elli Suazo, DANYA) Pitocin (milliunit): Pitocin Remains (milliunits) @ 10 (Elli Suazo, DANYA) IV/Blood Work: IV Infusing per Order; New IV Bag Hung (Elli Suazo, RN) Patient Position/Activity: Left Lateral; Low Fowlers (Elli Suazo, RN) Comfort Measures: Family Support (Elli Suazo, DANYA) I/O Interventions: Clear Liquids Given (Elli Suazo, RN) Communication: RN at Bedside; RN Reviewed Strip (Elli Suazo, RN) LaborFlag: Labor (QS system process) Datetime: 05/15/2016 12:55 Pain Scale: 5 (Elli Suazo RN) Pain Presence: Intermittent (Elli Suazo RN) Pain Type: Contraction; Pressure (Elli Suazo RN) Pain Location: Abdomen (Elli Suazo RN) Pain Relief Measures: Pain Medication Given; Comfort Measures (Elli Suazo RN) Pain Coping: Breathing Through Contractions (Elli Suazo RN) Analgesics/Sedatives: Nubain (mg) @ 10 (Elli Suazo RN) Antiemetics/Antacids: Phenergan IV (mg) @ 12.5 (Elli Suazo, DANYA) Comfort Measures: Breathing/Relaxation; Family Support (Elli Suazo RN) Communication: RN at Bedside (Elli Suazo RN) LaborFlag: Labor (QS system process) Datetime: 05/15/2016 12:45 Monitor Mode: External; Palpation (Liliana Camp, RNC) Frequency (min): 2-4 (Liliana Camp, RNC) Quality: Moderate (Liliana Camp, RNC) Duration (sec): 60-80 (Liliana Camp, RNC) Duration Criteria: Less than Two 120 Second Contractions (Liliana Camp, RNC) Pattern: Normal: <= 5 Contractions in 10 Minutes (Liliana Camp, RNC) Resting Tone (Palpate): Relaxed (Liliana Camp, RNC) Monitor Mode: External US; Auscultation (Liliana Camp, RNC) FHR Baseline Rate : 135 (Liliana Camp, RNC) FHR Baseline Changes: No Baseline Change (Liliana Camp, RNC) Variability: Moderate 6-25 bpm (Liliana Camp, RNC) Accelerations: 10X10 (Liliana Camp, RNC) Decelerations: Early; Variable (Liliana Camp, RNC) Datetime: 05/15/2016 12:40 NBP Sys/Pricilla/Mean (mmHg): 145 (QS system process) : 90 (QS system process) : 111 (QS system process) Pulse: 101 (QS system process) I/O Interventions: Up to BR (Elli Suazo RN) LaborFlag: Labor (QS system process) Datetime: 05/15/2016 12:37 Stage of : Labor (Elli Suazo RN) Communication: Provider Orders Received (Elli Suazo RN) Datetime: 05/15/2016 12:30 Stage of : Labor (Elli Suazo, DANYA) Respirations: 20 (Elli Suazo, RN) Monitor Mode: External (Elli Suazo, RN) Monitor Interventions for UA: Sobieski Adjusted (Elli Suazo, RN) Frequency (min): 2-3 (Elli Suazo, RN) Quality: Moderate (Elli Suazo, RN) Duration (sec): 55-65 (Elli Suazo, RN) Resting Tone (Palpate): Relaxed (Elli Suazo, DANYA) Monitor Mode: External US (Elli Suazo, DANYA) Monitor Interventions for FHR: Ultrasound Adjusted (Elli Suazo, DANYA) Comments: UTD- EFM MOVED (Elli Suazo, DANYA) Pain Presence: Intermittent (Elli Suazo, DANYA) Pain Type: Contraction; Pressure (Elli Suazo, RN) Pain Location: Abdomen (Elli Suazo, RN) Pain Relief Measures: Comfort Measures (Elli Suazo, DANYA) Pain Coping: Breathing Through Contractions; Requesting Pain Medication or Epidural (Elli Suazo, RN) Dilatation (cm): 5.5 (Elli Suazo, RN) Effacement (%): 90 (Elli Suazo, RN) Station: -1 (Elli Suazo, DANYA) Exam by: Kalina MEEK CNM (Elli Suazo, RN) Vaginal Bleeding: Normal Show (Elli Suazo, DANYA) Cervix, Consistency: Soft (Elli Suazo, DANYA) Cervix, Position: Midposition (Elli Suazo, DANYA) Pitocin (milliunit): Pitocin Remains (milliunits) @ 10 (Elli Suazo, DANYA) IV/Blood Work: IV Infusing per Order (Elli Suazo, RN) Procedures: Sterile Vag Exam (Elli Suazo, RN) Patient Position/Activity: Left Lateral; Low Fowlers (Elli Suazo, RN) Comfort Measures: Family Support (Elli Suazo, RN) Communication: RN at Bedside; RN Reviewed Strip; Provider at Bedside (Elli Suazo, RN) Communication Comments: Kalina MEEK, CATHERINEM @ BS (Elli Suazo, RN) LaborFlag: Labor (QS system process) Datetime: 05/15/2016 12:16 Stage of : Labor (Elli Suazo, DANYA) Monitor Mode: External (Elli Suazo, RN) Monitor Interventions for UA: Sobieski Adjusted (Elli Suazo, RN) Frequency (min): 1.5-4 (Elli Suazo, RN) Quality: Moderate (Elli Suazo, RN) Duration (sec): 55-65 (Elli Suazo, RN) Resting Tone (Palpate): Relaxed (Elli Suazo, RN) Monitor Mode: External US (Elli Suazo, RN) Monitor Interventions for FHR: Ultrasound Adjusted (Elli Suazo, RN) FHR Baseline Rate : 135 (Elli Suazo, DANYA) FHR Baseline Changes: No Baseline Change (Elli Suazo, RN) Variability: Moderate 6-25 bpm (Elli Suazo, RN) Accelerations: 15X15 (Elli Suazo, DANYA) Decelerations: None (Elli Suazo RN) Pain Relief Measures: Comfort Measures (Elli Suazo RN) Pain Coping: Breathing Through Contractions (Elli Suazo RN) Pitocin (milliunit): Pitocin Increased to (milliunits) @ 10 (Elli Suazo RN) Patient Position/Activity: Standing (Elli Suazo RN) Comfort Measures: Rocking Chair; Family Support (Elli Suazo RN) Communication: RN at Bedside; RN Reviewed Strip (Elli Suazo RN) LaborFlag: Labor (QS system process) Datetime: 05/15/2016 12:14 I/O Interventions: Up to BR (Elli Suazo RN) Datetime: 05/15/2016 12:10 NBP Sys/Pricilla/Mean (mmHg): 138 (QS system process) : 72 (QS system process) : 96 (QS system process) Pulse: 74 (QS system process) LaborFlag: Labor (QS system process) Datetime: 05/15/2016 12:00 Stage of : Labor (Elli Suazo RN) Respirations: 18 (Elli Suazo RN) Monitor Mode: External; Palpation (Elli Suazo RN) Frequency (min): 1.5-4 (Elli Suazo RN) Quality: Moderate (Elli Suazo RN) Duration (sec): 55-70 (Elli Suazo RN) Resting Tone (Palpate): Relaxed (Elli Suazo RN) Monitor Mode: External US (Elli Suazo RN) Monitor Interventions for FHR: Ultrasound Adjusted (Elli Suazo RN) FHR Baseline Rate : 135 (Elli Suazo RN) FHR Baseline Changes: No Baseline Change (Elli Suazo RN) Variability: Moderate 6-25 bpm (Elli Suazo RN) Accelerations: None (Elli Suazo RN) Decelerations: None (Elli Suazo RN) Pain Scale: 3 (Elli Suazo RN) Pain Presence: Intermittent (Elli Suazo RN) Pain Type: Contraction; Pressure (Elli Suazo RN) Pain Location: Abdomen (Elli Suazo RN) Pain Relief Measures: Comfort Measures (Elli Suazo RN) Pain Coping: Breathing Through Contractions (Elli Suazo RN) Pitocin (milliunit): Pitocin Increased to (milliunits) @ 8 (Elli Suazo RN) Patient Position/Activity: Standing (Elli Suazo, DANYA) Comfort Measures: Breathing/Relaxation; Rocking Chair; Family Support (Elli Suazo, DANYA) Communication: RN at Bedside; RN Reviewed Strip (Elli Suazo, DANYA) LaborFlag: Labor (QS system process)
[2016-05-15] MEDS ORDERED: IBUPROFEN 800 MG TABLET ONE (16:27)
--- NOTE | 2016-05-15 17:55 | Delivery Summary ---
Del Sum A-C Datetime Report Generated by CPN: 05/15/2016 17:55 ADMISSION DATA Chief Complaint: Scheduled Induction of Labor Indication for Induction: Post Dates Admission Impression: Postterm, Intrauterine ; Induction of Labor Admit Provider Comments: Post dates induction with cervidil. GBS neg DELIVERY PERSONNEL Delivery Doctor:: Tari Adkins CNM Nurse Auto Body Technician Certified:: Tari Adkins CNM Labor and Delivery Nurse:: Elli Suazo RN Labor and Delivery Nurse:: CARISSA Sarabia Nursery Nurse:: Criss Watson RN Nursery Nurse:: Felisha Napoles RN Automotive Maintenance Technician/RESEARCH AND DEVELOPMENT MANAGER: [facility] MATERNAL INFORMATION Delivery Anesthesia: None Medications After Delivery: Pitocin Bolus-Please Comment; Pitocin Drip 20 Units/1000ml NSS; Cytotec 600mcg Per Rectum/Vagina Estimated Blood Loss (ml): 300 Maternal Complications: None Provider Comments: of viable female over intact perienum, head delivered without difficulty, shoulders and body delivered with gentle traction. with spontaneous cry and respirations, to maternal abdomen, cord clamped X2, infant cut free after 2 minute delay, spontaneous delivery of placenta, appears intact, 3 VC. Vagina and perineum inspected, repair as above, hemostasis acheived with external fundal massage and IV pitocin. Moderately heavy bleeding initially 600 mcg rectal cytotec given. Mother and infant in stable condition, routien care. LABOR SUMMARY EDC: 05/08/2016 00:00 No. Babies in Womb: 1 Attempted: No Labor Anesthesia: IV Sedation LABOR INFORMATION Reason for Induction: Post Dates Onset of Labor: 05/15/2016 10:26 Complete Dilatation: 05/15/2016 14:16 Cervical Ripening Agents: Cervidil Oxytocin: Induction Group B Beta Strep: negative Antibiotics # of Doses: 0 Steroids Given: None Reason Steroids Not Administered: Not Applicable MEMBRANES Membranes Rupture Method: Artificial Rupture of Membranes: 05/15/2016 10:26 Length of Rupture (hr): 4.15 Amniotic Fluid Color: Heavy Meconium Amniotic Fluid Amount: Small STAGES OF LABOR Stage 1 hr: 3 Stage 1 min: 50 Stage 2 hr: 0 Stage 2 min: 19 Stage 3 hr: 0 Stage 3 min: 5 Total Time in Labor hr: 4 Total Time in Labor min: 14 VAGINAL DELIVERY Episiotomy: None Laceration Extension: First Degree Laceration Type: Perineal; Vaginal Laceration Repair: Yes Laceration Repair Note: repaired with 2-0 chromic without anesthesia Sponge Count Correct: N/A Sharps Count Correct: N/A CSECTION DELIVERY Primary Indication: N/A Secondary Indication: N/A CSection Incidence: N/A Labor: N/A Elective: N/A CSection Incision: N/A BABY A INFORMATION Infant Delivery Date/Time: 05/15/2016 14:35 Method of Delivery: Vaginal Born in Route : No : N/A Forceps: N/A Vacuum Extraction: N/A Shoulder Dystocia : No PRESENTATION/POSITION BABY A Presentation: Cephalic Cephalic Presentation: Vertex Vertex Position: Right Occipital Anterior Breech Presentation: N/A PLACENTA INFORMATION BABY A Placenta Delivery Time : 05/15/2016 14:40 Placenta Method of Delivery: Spontaneous Placenta Status: Delivered SCORES BABY A Heart Rate 1 min: >100 bpm Resp Effort 1 min: Good Cry Reflex Irritability 1 min: Cough or Sneeze or Pulls Away Muscle Tone 1 min: Active Motion Color 1 min: Blue/Pale Resuscitation Effort 1 min: Tactile Stimulation SCORE 1 MIN: 8 Heart Rate 5 min: >100 bpm Resp Effort 5 min: Good Cry Reflex Irritability 5 min: Cough or Sneeze or Pulls Away Muscle Tone 5 min: Active Motion Color 5 min: Body [place], Extremities Blue Resuscitation Effort 5 min: Tactile Stimulation SCORE 5 MIN: 9 INFANT INFORMATION BABY A Gestational Age at Delivery: 41.0 Gestational Status: Late Term- 41- 41.6 Weeks Outcome : Liveborn Infant Condition : Stable Sex: Female IDENTIFICATION BABY A Verification Date/Time: 05/15/2016 14:53 ID Band Number: [id number] Mother's Name Verified: Yes RN Verifying : Loree Luna Pier RN/Rosy Magaña RN WEIGHT/LENGTH BABY A Birthweight (gm): 3530 Weight (lb): 7 Infant Weight (oz): 13 Length (in): 20.50 Infant Length (cm): 52.07 CORD INFORMATION BABY A No. Cord Vessels: 3 Nuchal Cord : N/A Cord Blood Taken: Yes-For Eval (Mom's Blood Type - or O+) Infant Suction: None ASSESSMENT BABY A Complications: Meconium Infant Complications- Other: nubain/phenergan @ 1255 Physical Findings at Delivery: Molding of the Head Respirations: Appears Normal Skin to Skin: Yes Skin to Skin Time (min): 60 Care By: DANYA Lloyd Transferred To: [facility] BABY B INFORMATION : N/A SIGNATURES Assignment: Boris rKishnan DO Signature: with User ID: Joe : with User ID: Joe
[2016-05-15] MEDS: FERROUS SULFATE 325 MG TABLET PO SCH (18:43)
[2016-05-15] MEDS: DOCUSATE SODIUM 100 MG CAPSULE PO SCH (18:44)
--- NOTE | 2016-05-15 19:01 | L&D Flow Sheet ---
LD Flowsheet Datetime Report Generated by CPN: 05/15/2016 19:00 Datetime: 05/15/2016 17:13 Stage of : Recovery (Elli Suazo RN) Respirations: 18 (Elli Suazo RN) Pain Scale: 1 (Elli Suazo RN) Pain Presence: None/Denies (Elli Suazo RN) Pain Type: N/A (Elli Suazo RN) Pain Location: Perineum (Elli Suazo RN) Pain Relief Measures: Comfort Measures (Elli Suazo RN) Datetime: 05/15/2016 16:58 NBP Sys/Pricilla/Mean (mmHg): 122 (QS system process) : 76 (QS system process) : 94 (QS system process) Pulse: 122 (QS system process) Datetime: 05/15/2016 16:43 NBP Sys/Pricilla/Mean (mmHg): 127 (QS system process) : 77 (QS system process) : 95 (QS system process) Pulse: 116 (QS system process) Datetime: 05/15/2016 16:28 Stage of : Recovery (Elli Suazo RN) NBP Sys/Pricilla/Mean (mmHg): 121 (QS system process) : 70 (QS system process) : 89 (QS system process) Pulse: 121 (QS system process) Respirations: 18 (Elli Suazo RN) Pain Scale: 1 (Elli Suazo RN) Pain Presence: Constant (Elli Suazo RN) Pain Type: Ache (Elli Suazo RN) Pain Location: Perineum (Elli Suazo RN) Pain Relief Measures: Pain Medication Given; Comfort Measures (Elli Suazo RN) Datetime: 05/15/2016 16:13 Stage of : Recovery (Elli Suazo RN) NBP Sys/Pricilla/Mean (mmHg): 121 (QS system process) : 68 (QS system process) : 88 (QS system process) Pulse: 100 (QS system process) Respirations: 18 (Elli Suazo RN) Pain Scale: 1 (Elli Suazo RN) Pain Presence: Constant (Elli Suazo RN) Pain Type: Ache (Elli Suazo RN) Pain Location: Perineum (Elli Suazo RN) Pain Relief Measures: Comfort Measures (Elli Suazo RN) Datetime: 05/15/2016 15:58 NBP Sys/Pricilla/Mean (mmHg): 139 (QS system process) : 66 (QS system process) : 95 (QS system process) Pulse: 108 (QS system process) Datetime: 05/15/2016 15:43 Stage of : Recovery (Elli Suazo RN) NBP Sys/Pricilla/Mean (mmHg): 152 (QS system process) : 64 (QS system process) : 88 (QS system process) Pulse: 107 (QS system process) Respirations: 18 (Elli Suazo RN) Pain Scale: 0 (Elli Suazo RN) Pain Presence: None/Denies (Elli Suazo RN) Pain Type: N/A (Elli Suazo RN) Pain Relief Measures: Comfort Measures (Elli Suazo RN) Datetime: 05/15/2016 15:28 Stage of : Recovery (Elli Suazo RN) NBP Sys/Pricilla/Mean (mmHg): 136 (QS system process) : 78 (QS system process) : 100 (QS system process) Pulse: 110 (QS system process) Respirations: 18 (Elli Suazo, DANYA) Pain Scale: 0 (Elli Suazo RN) Pain Presence: None/Denies (Elli Suazo, DANYA) Pain Type: N/A (Elli Suazo RN) Pain Relief Measures: Comfort Measures (Elli Suazo, RN) Datetime: 05/15/2016 15:13 Stage of : Recovery (Elli Suazo RN) NBP Sys/Pricilla/Mean (mmHg): 130 (QS system process) : 78 (QS system process) : 95 (QS system process) Pulse: 102 (QS system process) Respirations: 18 (Elli Suazo RN) Pain Scale: 0 (Elli Suazo RN) Pain Presence: None/Denies (Elli Suazo RN) Pain Type: N/A (Elli Suazo RN) Pain Relief Measures: Comfort Measures (Elli Suazo, DANYA) Datetime: 05/15/2016 14:58 Stage of : Recovery (Elli Suazo RN) NBP Sys/Pricilla/Mean (mmHg): 119 (QS system process) : 60 (QS system process) : 81 (QS system process) Pulse: 114 (QS system process) Respirations: 18 (Elli Suazo RN) Pain Scale: 0 (Elli Suazo RN) Pain Presence: None/Denies (Elli Suazo RN) Pain Type: N/A (Elli Suazo RN) Pain Relief Measures: Comfort Measures (Elli Suazo RN) Datetime: 05/15/2016 14:43 Stage of : Recovery (Elli Suazo RN) NBP Sys/Pricilla/Mean (mmHg): 130 (QS system process) : 58 (QS system process) : 83 (QS system process) Pulse: 118 (QS system process) Respirations: 18 (Elli Suazo RN) Pain Scale: 2 (Elli Suazo RN) Pain Presence: Constant (Elli Suazo RN) Pain Type: Sharp (Elli Suazo RN) Pain Location: Perineum (Annotations: WITH REPAIR) (Elli Suazo RN) Pain Goal: 1 (Elli Suazo RN) Pain Relief Measures: Comfort Measures (Elli Suazo RN) Datetime: 05/15/2016 14:35 Stage 2 Comments: Delivery liveborn female placed on maternal abdomen, dried and stimulated with spontaneous cry and respiratons. Delayed cord clamped abd cut by FOB. (Liliana Camp, RNC) Datetime: 05/15/2016 14:30 Monitor Mode: Palpation (Liliana Camp, RNC) Monitor Interventions for UA: [place] Adjusted (Liliana Camp, RNC) Frequency (min): 1-2 (Liliana Camp, RNC) Quality: Moderate (Liliana Camp, RNC) Duration (sec): 70-100 (Liliana Camp, RNC) Pattern: Normal: <= 5 Contractions in 10 Minutes (Liliana Camp, RNC) Resting Tone (Palpate): Relaxed (Liliana Camp, RNC) Monitor Interventions for FHR: Ultrasound Adjusted (Liliana Camp, RNC) FHR Baseline Changes: Unable to Determine (Liliana Camp, RNC) Decelerations: Prolonged (Liliana Camp, RNC) Actions for Decelerations: Provider Reviewed Strip (Liliana Camp, RNC) Comments: pt crying and yelling, intense coaching by family and staff to maintain control and follow verbal commands. RN and provider remain at bedside attempting to auscultate FHR (Liliana Camp, RNC) Datetime: 05/15/2016 14:25 Comfort Measures: Breathing/Relaxation; Coaching; Family Support (Elli Suazo RN) Pushing: Coached on Pushing (Elli Suazo RN) Pushing Position: Pushing with Contractions; Pushing Lithotomy (Elli Suazo RN) Pushing Progress: Descent with Pushing (Elli Suazo RN) Preparation for Delivery: Perineal Prep Done; Setup for Delivery (Elli Suazo RN) Stage 2 Comments: rn AND kalina Meek cnm (Elli Suazo RN) Datetime: 05/15/2016 14:16 Stage of : Labor (Elli Suazo RN) Dilatation (cm): 10.0 (Elli Suazo RN) Effacement (%): 100 (Elli Suazo RN) Station: 2 (Elli Suaoz RN) Exam by: Kalina MEEK CNM (Elli Suazo RN) Procedures: Sterile Vag Exam (Elli Suazo RN) Communication: RN at Bedside; RN Reviewed Strip; Provider at Bedside (Elli Suazo RN) Datetime: 05/15/2016 14:15 Monitor Mode: External; Palpation (Liliana Camp, RNC) Monitor Interventions for UA: [place] Adjusted (Liliana Camp, RNC) Frequency (min): 2-4 (Liliana Camp, RNC) Quality: Moderate to Strong (Liliana Camp, RNC) Duration (sec): 50-70 (Liliana Camp, RNC) Duration Criteria: Less than Two 120 Second Contractions (Liliana Camp, RNC) Pattern: Normal: <= 5 Contractions in 10 Minutes (Liliana Camp, RNC) Resting Tone (Palpate): Relaxed (Liliana Camp, RNC) Monitor Mode: External US; Auscultation (Liliana Camp, RNC) Monitor Interventions for FHR: Ultrasound Adjusted (Liliana Camp, RNC) FHR Baseline Rate : 125 (Liliana Camp, RNC) FHR Baseline Changes: No Baseline Change (Liliana Camp, RNC) Variability: Minimal - Undetectable to <=5 bpm (Liliana Camp, RNC) Decelerations: Variable (Liliana Camp, RNC) Datetime: 05/15/2016 14:10 NBP Sys/Pricilla/Mean (mmHg): 126 (QS system process) : 61 (QS system process) : 87 (QS system process) Pulse: 89 (QS system process) Respirations: 16 (Liliana Camp, RNC) LaborFlag: Labor (QS system process) Datetime: 05/15/2016 14:00 Monitor Mode: External; Palpation (Liliana Camp, RNC) Frequency (min): 2-4 (Liliana Camp, RNC) Quality: Moderate to Strong (Liliana Camp, RNC) Duration (sec): 50-70 (Liliana Camp, RNC) Duration Criteria: Less than Two 120 Second Contractions (Liliana Camp, RNC) Pattern: Normal: <= 5 Contractions in 10 Minutes (Liliana Camp, RNC) Resting Tone (Palpate): Relaxed (Liliana Camp, RNC) Monitor Mode: External US; Auscultation (Liliana Camp, RNC) FHR Baseline Rate : 130 (Liliana Camp, RNC) FHR Baseline Changes: No Baseline Change (Liliana Camp, RNC) Variability: Minimal - Undetectable to <=5 bpm (Liliana Camp, RNC) Decelerations: Early; Variable (Liliana Camp, RNC) Datetime: 05/15/2016 13:45 Stage of : Labor (Elli Suazo RN) Respirations: 16 (Elli Suazo RN) Monitor Mode: External (Elli Suazo RN) Frequency (min): 2-3 (Elli Suazo RN) Quality: Moderate (Elli Suazo RN) Duration (sec): 55-65 (Elli Suazo, DANYA) Resting Tone (Palpate): Relaxed (Elli Suazo RN) Monitor Mode: External US (Elli Suazo RN) FHR Baseline Rate : 130 (Elli Suazo RN) FHR Baseline Changes: No Baseline Change (Elli Suazo RN) Variability: Minimal - Undetectable to <=5 bpm (Elli Suazo RN) Accelerations: None (Elli Suazo, DANYA) Decelerations: None (Elli Suazo RN) Pain Relief Measures: Comfort Measures (Elli Suazo RN) Pain Coping: Sleeping (Elli Suazo RN) Pitocin (milliunit): Pitocin Remains (milliunits) @ 12 (Elli Suazo, DANYA) IV/Blood Work: IV Infusing per Order (Elli Suazo RN) Patient Position/Activity: Left Lateral; Low Fowlers (Elli Suazo, DANYA) Comfort Measures: Family Support (Elli Suazo, DANYA) Communication: RN at Bedside; RN Reviewed Strip (Elli Suazo RN) LaborFlag: Labor (QS system process) Datetime: 05/15/2016 13:41 NBP Sys/Pricilla/Mean (mmHg): 125 (QS system process) : 59 (QS system process) : 85 (QS system process) Pulse: 88 (QS system process) Respirations: 18 (CARISSA Sarabia) LaborFlag: Labor (QS system process) Datetime: 05/15/2016 13:30 Stage of : Labor (Elli Suazo RN) Respirations: 18 (Elli Suazo RN) Monitor Mode: External (Elli Suazo RN) Frequency (min): 2-4 (Elli Suazo RN) Quality: Moderate (Elli Suazo RN) Duration (sec): 55-70 (Elli Suazo RN) Resting Tone (Palpate): Relaxed (Elli Suazo RN) Monitor Mode: External US (Elli Suazo RN) Monitor Interventions for FHR: Ultrasound Adjusted (Elli Suazo RN) FHR Baseline Rate : 130 (Elli Suazo RN) FHR Baseline Changes: No Baseline Change (Elli Suazo RN) Variability: Minimal - Undetectable to <=5 bpm (Elli Suazo RN) Accelerations: None (Elli Suazo, RN) Decelerations: None (Elli Suazo, RN) Pain Relief Measures: Comfort Measures (Elli Suazo, RN) Pain Coping: Sleeping (Elli Suazo, DANYA) Pitocin (milliunit): Pitocin Increased to (milliunits) @ 12 (Elli Suazo, RN) IV/Blood Work: IV Infusing per Order (Elli Suazo, RN) Patient Position/Activity: Left Lateral; Low Fowlers (Elli Suazo, RN) Comfort Measures: Family Support (Elli Suazo, DANYA) Communication: RN at Bedside; RN Reviewed Strip (Elli Suazo RN) LaborFlag: Labor (QS system process) Datetime: 05/15/2016 13:15 Stage of : Labor (Elli Suazo RN) Respirations: 18 (Elli Suazo RN) Temperature (F): 98.1 (Elli Suazo, DANYA) Temperature (C): 36.7 (QS system process) Monitor Mode: External (Elli Suazo, DANYA) Monitor Interventions for UA: [place] Adjusted (Elli Suazo, DANYA) Frequency (min): 2-3 (Elli Suazo RN) Quality: Moderate (Elli Suazo RN) Duration (sec): 55-70 (Elli Suazo, RN) Resting Tone (Palpate): Relaxed (Elli Suazo RN) Monitor Mode: External US (Elli Suazo RN) Monitor Interventions for FHR: Ultrasound Adjusted (Elli Suazo RN) FHR Baseline Rate : 130 (Elli Suazo RN) FHR Baseline Changes: No Baseline Change (Elli Suazo RN) Variability: Minimal - Undetectable to <=5 bpm (Elli Suazo RN) Accelerations: None (Elli Suazo RN) Decelerations: None (Elli Suazo RN) Pain Relief Measures: Comfort Measures (Elli Suazo RN) Pain Coping: Sleeping (Elli Suazo RN) Pitocin (milliunit): Pitocin Remains (milliunits) @ 10 (Elli Suazo, DANYA) Patient Position/Activity: Left Lateral; Low Fowlers (Elli Suazo, DANYA) Comfort Measures: Family Support (Elli Suazo, DANYA) Communication: RN at Bedside; RN Reviewed Strip (Elli Suazo RN) LaborFlag: Labor (QS system process) Datetime: 05/15/2016 13:10 NBP Sys/Pricilla/Mean (mmHg): 120 (QS system process) : 56 (QS system process) : 81 (QS system process) Pulse: 83 (QS system process) LaborFlag: Labor (QS system process) Datetime: 05/15/2016 13:00 Stage of : Labor (Elli Suazo, DANYA) Respirations: 18 (Elli Suazo, RN) Monitor Mode: External (Elli Suazo, DANYA) Monitor Interventions for UA: [place] Adjusted (Elli Suazo, DANYA) Frequency (min): 2-3 (Elli Suazo, DANYA) Quality: Moderate (Elli Suazo RN) Duration (sec): 55-65 (Elli Suazo, RN) Resting Tone (Palpate): Relaxed (Elli Suazo, DANYA) Monitor Mode: External US (Elli Suazo, DANYA) Monitor Interventions for FHR: Ultrasound Adjusted (Elli Suazo RN) FHR Baseline Rate : 135 (Elli Suazo, DANYA) FHR Baseline Changes: No Baseline Change (Elli Suazo, DANYA) Variability: Moderate 6-25 bpm (Elli Suazo, DANYA) Accelerations: None (Elli Suazo, DANYA) Decelerations: None (Elli Suazo, DANYA) Pain Scale: 0 (Elli Suazo, DANYA) Pain Presence: None/Denies (Elli Suazo, DANYA) Pain Type: N/A (Elli Suazo, DANYA) Pain Relief Measures: Pain Medication Given; Comfort Measures (Elli Suazo, RN) Pain Coping: Sleeping (Elli Suazo, DANYA) Pitocin (milliunit): Pitocin Remains (milliunits) @ 10 (Elli Suazo, DANYA) IV/Blood Work: IV Infusing per Order; New IV Bag Hung (Elli Suazo, RN) Patient Position/Activity: Left Lateral; Low Fowlers (Elli Suazo, DANYA) Comfort Measures: Family Support (Elli Suazo RN) I/O Interventions: Clear Liquids Given (Elli Suazo RN) Communication: RN at Bedside; RN Reviewed Strip (Elli Suazo RN) LaborFlag: Labor (QS system process) Datetime: 05/15/2016 12:55 Pain Scale: 5 (Elli Suazo RN) Pain Presence: Intermittent (Elli Suazo RN) Pain Type: Contraction; Pressure (Elli Suazo RN) Pain Location: Abdomen (Elli Suazo RN) Pain Relief Measures: Pain Medication Given; Comfort Measures (Elli Suazo RN) Pain Coping: Breathing Through Contractions (Elli Suazo RN) Analgesics/Sedatives: Nubain (mg) @ 10 (Elli Suazo RN) Antiemetics/Antacids: Phenergan IV (mg) @ 12.5 (Elli Suazo RN) Comfort Measures: Breathing/Relaxation; Family Support (Elli Suazo RN) Communication: RN at Bedside (Elli Suazo RN) LaborFlag: Labor (QS system process) Datetime: 05/15/2016 12:45 Monitor Mode: External; Palpation (Liliana Camp, RNC) Frequency (min): 2-4 (Liliana Camp, RNC) Quality: Moderate (Liliana Camp, RNC) Duration (sec): 60-80 (Liliana Camp, RNC) Duration Criteria: Less than Two 120 Second Contractions (Liliana Camp, RNC) Pattern: Normal: <= 5 Contractions in 10 Minutes (Liliana Camp, RNC) Resting Tone (Palpate): Relaxed (Liliana Camp, RNC) Monitor Mode: External US; Auscultation (Liliana Camp, RNC) FHR Baseline Rate : 135 (Liliana Camp, RNC) FHR Baseline Changes: No Baseline Change (Liliana Camp, RNC) Variability: Moderate 6-25 bpm (Liliana Camp, RNC) Accelerations: 10X10 (Liliana Camp, RNC) Decelerations: Early; Variable (Liliana Camp, RNC) Datetime: 05/15/2016 12:40 NBP Sys/Pricilla/Mean (mmHg): 145 (QS system process) : 90 (QS system process) : 111 (QS system process) Pulse: 101 (QS system process) I/O Interventions: Up to BR (Elli Suazo RN) LaborFlag: Labor (QS system process) Datetime: 05/15/2016 12:37 Stage of : Labor (Elli Suazo RN) Communication: Provider Orders Received (Elli Suazo RN) Datetime: 05/15/2016 12:30 Stage of : Labor (Elli Suazo RN) Respirations: 20 (Elli Suazo RN) Monitor Mode: External (Elli Suazo RN) Monitor Interventions for UA: [place] Adjusted (Elli Suazo RN) Frequency (min): 2-3 (Elli Suazo RN) Quality: Moderate (Elli Suazo RN) Duration (sec): 55-65 (Elli Suazo, RN) Resting Tone (Palpate): Relaxed (Elli Suazo, RN) Monitor Mode: External US (Elli Suazo RN) Monitor Interventions for FHR: Ultrasound Adjusted (Elli Suazo RN) Comments: UTD- EFM MOVED (Elli Suazo, RN) Pain Presence: Intermittent (Elli Suazo RN) Pain Type: Contraction; Pressure (Elli Suazo RN) Pain Location: Abdomen (Elli Kendal Roulund, RN) Pain Relief Measures: Comfort Measures (Elli Suazo, RN) Pain Coping: Breathing Through Contractions; Requesting Pain Medication or Epidural (Elli Suazo, RN) Dilatation (cm): 5.5 (Elli Suazo, RN) Effacement (%): 90 (Elli Suazo, RN) Station: -1 (Elli Suazo, RN) Exam by: Kalina MEEK CNM (Elli Suazo, RN) Vaginal Bleeding: Normal Show (Elli Suazo, RN) Cervix, Consistency: Soft (Elli Suazo, RN) Cervix, Position: Midposition (Elli Suazo, RN) Pitocin (milliunit): Pitocin Remains (milliunits) @ 10 (Elli Suazo, RN) IV/Blood Work: IV Infusing per Order (Elli Suazo, RN) Procedures: Sterile Vag Exam (Elli Suazo, RN) Patient Position/Activity: Left Lateral; Low Fowlers (Elli Suazo, RN) Comfort Measures: Family Support (Elli Suazo, RN) Communication: RN at Bedside; RN Reviewed Strip; Provider at Bedside (Elli Suazo, RN) Communication Comments: Kalina MEEK CNM @ BS (Elli Suazo, RN) LaborFlag: Labor (QS system process) Datetime: 05/15/2016 12:16 Stage of : Labor (Elli Suazo, DANYA) Monitor Mode: External (Elli Suazo, RN) Monitor Interventions for UA: [place] Adjusted (Elli Suazo RN) Frequency (min): 1.5-4 (Elli Suazo, DANYA) Quality: Moderate (Elli Suazo RN) Duration (sec): 55-65 (Elli Suazo, RN) Resting Tone (Palpate): Relaxed (Elli Suazo, RN) Monitor Mode: External US (Elli Suazo RN) Monitor Interventions for FHR: Ultrasound Adjusted (Elli Suazo RN) FHR Baseline Rate : 135 (Elli Suazo RN) FHR Baseline Changes: No Baseline Change (Elli Suazo RN) Variability: Moderate 6-25 bpm (Elli Suazo RN) Accelerations: 15X15 (Elli Suazo, RN) Decelerations: None (Elli Suazo, DANYA) Pain Relief Measures: Comfort Measures (Elli Suazo RN) Pain Coping: Breathing Through Contractions (Elli Suazo, DANYA) Pitocin (milliunit): Pitocin Increased to (milliunits) @ 10 (Elli Suazo, RN) Patient Position/Activity: Standing (Elli Suazo, DANYA) Comfort Measures: Rocking Chair; Family Support (Elli Suazo, RN) Communication: RN at Bedside; RN Reviewed Strip (Elli Suazo, DANYA) LaborFlag: Labor (QS system process) Datetime: 05/15/2016 12:14 I/O Interventions: Up to BR (Elli Suazo RN) Datetime: 05/15/2016 12:10 NBP Sys/Pricilla/Mean (mmHg): 138 (QS system process) : 72 (QS system process) : 96 (QS system process) Pulse: 74 (QS system process) LaborFlag: Labor (QS system process) Datetime: 05/15/2016 12:00 Stage of : Labor (Elli Suazo RN) Respirations: 18 (Elli Suazo RN) Monitor Mode: External; Palpation (Elli Suazo RN) Frequency (min): 1.5-4 (Elli Suazo RN) Quality: Moderate (Elli Suazo RN) Duration (sec): 55-70 (Elli Suazo RN) Resting Tone (Palpate): Relaxed (Elli Suazo RN) Monitor Mode: External US (Elli Suazo RN) Monitor Interventions for FHR: Ultrasound Adjusted (Elli Suazo RN) FHR Baseline Rate : 135 (Elli Suazo RN) FHR Baseline Changes: No Baseline Change (Elli Suazo RN) Variability: Moderate 6-25 bpm (Elli Suazo, DANYA) Accelerations: None (Elli Suazo RN) Decelerations: None (Elli Suazo RN) Pain Scale: 3 (Elli Suazo, DANYA) Pain Presence: Intermittent (Elli Suazo RN) Pain Type: Contraction; Pressure (Elli Suazo RN) Pain Location: Abdomen (Elli Suazo, DANYA) Pain Relief Measures: Comfort Measures (Elli Suazo, DANYA) Pain Coping: Breathing Through Contractions (Elli Suazo, DANYA) Pitocin (milliunit): Pitocin Increased to (milliunits) @ 8 (Elli Suazo, DANYA) Patient Position/Activity: Standing (Elli Suazo, DANYA) Comfort Measures: Breathing/Relaxation; Rocking Chair; Family Support (Elli Suazo, DANYA) Communication: RN at Bedside; RN Reviewed Strip (Elli Suazo RN) LaborFlag: Labor (QS system process) Datetime: 05/15/2016 11:45 Stage of : Labor (Elli Suazo, DANYA) Respirations: 18 (Elli Suazo, DANYA) Monitor Mode: External (Elli Suazo RN) Monitor Interventions for UA: [place] Adjusted (Elli Suazo, DANYA) Frequency (min): 2-3 (Elli Suazo RN) Quality: Moderate (Elli Suazo RN) Duration (sec): 55-70 (Elli Suazo, RN) Resting Tone (Palpate): Relaxed (Elli Suazo, RN) Monitor Mode: External US (Elli Suazo, RN) Monitor Interventions for FHR: Ultrasound Adjusted (Elli Suazo RN) FHR Baseline Rate : 135 (Elli Suazo RN) FHR Baseline Changes: No Baseline Change (Elli Suazo, DANYA) Variability: Moderate 6-25 bpm (Elli Suazo, RN) Accelerations: 15X15 (Elli Suazo, RN) Decelerations: None (Elli Suazo, RN) Pain Relief Measures: Comfort Measures (Elli Suazo, DANYA) Pain Coping: Breathing Through Contractions (Elli Suazo, DANYA) Pitocin (milliunit): Pitocin Remains (milliunits) @ 6 (Elli Suazo, RN) IV/Blood Work: IV Infusing per Order (Elli Suazo, RN) Patient Position/Activity: Standing (Elli Suazo, RN) Comfort Measures: Breathing/Relaxation; Family Support (Elli Suazo, RN) I/O Interventions: Up to BR (Elli Suazo, RN) Communication: RN at Bedside; RN Reviewed Strip (Elli Suazo, RN) LaborFlag: Labor (QS system process) Datetime: 05/15/2016 11:30 Stage of : Labor (Elli Suazo RN) Respirations: 18 (Elli Suazo RN) Monitor Mode: External (Elli Suazo RN) Frequency (min): 2-3 (Elli Suazo RN) Quality: Mild/Moderate (Elli Suazo RN) Duration (sec): 65-70 (Elli Suazo RN) Resting Tone (Palpate): Relaxed (Elli Suazo RN) Monitor Mode: External US (Elli Suazo RN) FHR Baseline Rate : 145 (Elli Suazo RN) FHR Baseline Changes: No Baseline Change (Elli Suazo RN) Variability: Moderate 6-25 bpm (Elli Suazo RN) Accelerations: 15X15 (Elli Suazo RN) Decelerations: None (Elli Suazo RN) Pain Scale: 2 (Elli Suazo RN) Pain Presence: Intermittent (Elli Suazo RN) Pain Type: Contraction (Elli Suazo RN) Pain Location: Abdomen (Elli Suazo RN) Pain Relief Measures: Comfort Measures (Elli Suazo RN) Pain Coping: Talking Through Contractions (Elli Suazo RN) Pitocin (milliunit): Pitocin Increased to (milliunits) @ 6 (Elli Suazo RN) IV/Blood Work: IV Infusing per Order (Elli Suazo, DANYA) Patient Position/Activity: Standing (Elli Suazo RN) Comfort Measures: Rocking Chair; Family Support (Elli Suazo, DANYA) Communication: RN at Bedside; RN Reviewed Strip (Elli Suazo RN) LaborFlag: Labor (QS system process) Datetime: 05/15/2016 11:15 Stage of : Labor (Elli Suazo, DANYA) Respirations: 18 (Elli Suazo, RN) Monitor Mode: External; Palpation (Elli Suazo, RN) Monitor Interventions for UA: [place] Adjusted (Elli Suazo, RN) Frequency (min): IRREG (Elli Suazo, RN) Quality: Mild/Moderate (Elli Suazo, RN) Duration (sec): 55-70 (Elli Suazo, RN) Resting Tone (Palpate): Relaxed (Elli Suazo, RN) Monitor Mode: External US (Elli Suazo, RN) Monitor Interventions for FHR: Ultrasound Adjusted (Elli Suazo RN) FHR Baseline Rate : 135 (Elli Suazo, DANYA) FHR Baseline Changes: No Baseline Change (Elli Suazo, RN) Variability: Moderate 6-25 bpm (Elli Suazo, RN) Accelerations: 15X15 (Elli Suazo, RN) Decelerations: None (Elli Suazo, RN) Pain Relief Measures: Comfort Measures (Elli Suazo, DANYA) Pain Coping: Talking Through Contractions (Elli Suazo, RN) Pitocin (milliunit): Pitocin Increased to (milliunits) @ 4 (Elli Suazo, RN) IV/Blood Work: IV Infusing per Order (Elli Suazo, RN) Comfort Measures: Rocking Chair; Family Support (Elli Suazo, DANYA) Hygiene: Underpad Changed (Elli Suazo, RN) Communication: RN at Bedside; RN Reviewed Strip (Elli Suazo, DANYA) LaborFlag: Labor (QS system process) Datetime: 05/15/2016 11:11 NBP Sys/Pricilla/Mean (mmHg): 134 (QS system process) : 76 (QS system process) : 93 (QS system process) Pulse: 102 (QS system process) LaborFlag: Labor (QS system process) Datetime: 05/15/2016 11:02 I/O Interventions: Up to BR (Elli Suazo, RN) Datetime: 05/15/2016 11:00 Stage of : Labor (Elli Suazo RN) Respirations: 18 (Elli Suazo RN) Monitor Mode: External (Elli Suazo RN) Monitor Interventions for UA: [place] Adjusted (Elli Suazo, RN) Frequency (min): IRREG (Elli Suazo RN) Quality: Mild/Moderate (Elli Suazo RN) Duration (sec): 50-60 (Elli Suazo, RN) Resting Tone (Palpate): Relaxed (Elli Suazo, RN) Monitor Mode: External US (Elli Suazo RN) FHR Baseline Rate : 135 (Elli Suazo RN) FHR Baseline Changes: No Baseline Change (Elli Suazo, DANYA) Variability: Moderate 6-25 bpm (Elli Suazo RN) Accelerations: 15X15 (Elli Suazo, DANYA) Decelerations: None (Elli Suazo, DANYA) Pain Relief Measures: Comfort Measures (Elli Suazo RN) Pain Coping: Talking Through Contractions (Elli Suazo, DANYA) Pitocin (milliunit): Pitocin Remains (milliunits) @ 2 (Elli Suazo, RN) Patient Position/Activity: Left Tilt; Low Fowlers (Elli Suazo, RN) Comfort Measures: Family Support (Elli Suazo, DANYA) Communication: RN at Bedside; RN Reviewed Strip (Elli Suazo, DANYA) LaborFlag: Labor (QS system process) Datetime: 05/15/2016 10:50 Stage of : Labor (Elli Suazo RN) Pitocin (milliunit): Pitocin Started (milliunits) @ 2 (Elli Suazo, RN) Communication: RN at Bedside; RN Reviewed Strip (Elli Suazo, RN) Datetime: 05/15/2016 10:44 I/O Interventions: Up to BR (Elli Suazo, RN) Datetime: 05/15/2016 10:40 NBP Sys/Pricilla/Mean (mmHg): 139 (QS system process) : 74 (QS system process) : 101 (QS system process) Pulse: 103 (QS system process) LaborFlag: Labor (QS system process) Datetime: 05/15/2016 10:30 Stage of : Labor (Elli Suazo, DANYA) Respirations: 16 (Elli Suazo, RN) Monitor Mode: External; Palpation (Elli Suazo, RN) Monitor Interventions for UA: [place] Adjusted (Elli Suazo, RN) Frequency (min): IRREG (Elli Suazo, RN) Quality: Mild/Moderate (Elli Suazo, RN) Resting Tone (Palpate): Relaxed (Elli Suazo, RN) Monitor Mode: External US (Elli Suazo, RN) Monitor Interventions for FHR: Ultrasound Adjusted (Elli Suazo, DANYA) FHR Baseline Rate : 135 (Elli Suazo, DANYA) FHR Baseline Changes: No Baseline Change (Elli Suazo, DANYA) Variability: Moderate 6-25 bpm (Elli Suazo, DANYA) Accelerations: 15X15 (Elli Suazo, RN) Decelerations: None (Elli Suazo, DANYA) Pain Scale: 2 (Elli Suazo, DANYA) Pain Presence: Intermittent (Elli Suazo, DANYA) Pain Type: Cramping (Elli Suazo, DANYA) Pain Location: Abdomen (Elli Suazo, DANYA) Pain Relief Measures: Comfort Measures (Elli Suazo, DANYA) Pain Coping: Talking Through Contractions (Elli Suazo, DANYA) Patient Position/Activity: Left Tilt; Low Fowlers (Elli Suazo, RN) Comfort Measures: Family Support (Elli Suazo, DANYA) I/O Interventions: Clear Liquids Given (Elli Suazo, DANYA) Communication: RN at Bedside; RN Reviewed Strip (Elli Suazo, DANYA) LaborFlag: Labor (QS system process) Datetime: 05/15/2016 10:26 Stage of : Labor (Elli Suazo RN) Dilatation (cm): 3.5 (Elli Suazo, RN) Effacement (%): 90 (Elli Suazo, RN) Station: -1 (Elli Suazo RN) Exam by: Klaina MEEK CNM (Elli Suazo, RN) Membrane Status: Ruptured (Elli Suazo RN) Membranes Rupture Method: Artificial (Elli Suazo, RN) Amniotic Fluid Color: Heavy Meconium (Elli Suazo, RN) Amniotic Fluid Amount: Small (Elli Suazo, RN) Vaginal Bleeding: Normal Show (Elli Suazo, RN) Cervix, Consistency: Soft (Elli Suazo, RN) Cervix, Position: Midposition (Elli Suazo, RN) Procedures: Sterile Vag Exam (Elli Suazo, RN) Provider Reviewed Strip: Yes (Elli Suazo, DANAY) Instructional Method: Verbal; Patient Instructed; Family/Support Person Instructed (Elli Suazo, RN) Plan of Care: Plan of Care Discussed; Induction (Elli Suazo, RN) Labor/Induction: Labor Stages; Induction (Elli Suazo, RN) Pain Management: IV Narcotics; Epidural; Pain Scale/Goals; Comfort Measures (Elli Suazo, DANYA) Medications: Pitocin (Elli Suazo, RN) Communication: RN at Bedside; RN Reviewed Strip; Provider at Bedside (Elli Suazo, DANYA) Communication Comments: Kalina MEEK CNM @ BS (Elli Suazo RN) Datetime: 05/15/2016 10:20 Stage of : Antepartum (Elli Suazo RN) IV/Blood Work: IV Started; IV Infusing per Order (Elli Suazo RN) Communication: RN at Bedside; RN Reviewed Strip (Elli Suazo RN) Datetime: 05/15/2016 10:10 Stage of : Antepartum (Elli Suazo RN) NBP Sys/Pricilla/Mean (mmHg): 124 (QS system process) : 61 (QS system process) : 86 (QS system process) Pulse: 94 (QS system process) Respirations: 16 (Elli Suazo RN) Monitor Mode: External; Palpation (Elli Suazo RN) Monitor Interventions for UA: [place] Adjusted (Elli Suazo RN) Resting Tone (Palpate): Relaxed (Elli Suazo RN) Monitor Mode: External US (Elli Suazo RN) Monitor Interventions for FHR: Ultrasound Adjusted (Elli Suazo RN) FHR Baseline Rate : 135 (Elli Suazo, DANYA) Pain Presence: Intermittent (Elli Suazo, RN) Pain Type: Cramping (Elli Suazo, RN) Pain Location: Abdomen (Elli Suazo, RN) Pain Relief Measures: Comfort Measures (Elli Suazo, RN) Pain Coping: Talking Through Contractions (Elli Suazo, RN) Patient Position/Activity: Left Tilt; Low Fowlers (Elli Suazo, RN) Comfort Measures: Family Support (Elli Suazo, RN) Hygiene: Oral Care; Shower; Underpad Changed; Gown Changed (Elli Suazo, RN) I/O Interventions: Up to BR (Elli Suazo, DANYA) Communication: RN at Bedside; RN Reviewed Strip (Elli Suazo, DANYA) LaborFlag: Antepartum (QS system process) Datetime: 05/15/2016 08:21 Stage of : Antepartum (Elli Suazo RN) Respirations: 18 (Elli Suazo, DANYA) Monitor Mode: External (Elli Suazo, RN) Monitor Interventions for UA: [place] Adjusted (Elli Suazo, RN) Frequency (min): 2-4 (Elli Suazo, DANYA) Quality: Mild/Moderate (Elli Suazo, RN) Duration (sec): 50-60 (Elli Suazo, RN) Resting Tone (Palpate): Relaxed (Elli Suazo, DANYA) Monitor Mode: External US (Elli Suazo, RN) Monitor Interventions for FHR: Ultrasound Adjusted (Elli Suazo, RN) FHR Baseline Rate : 145 (Elli Suazo, RN) FHR Baseline Changes: No Baseline Change (Elli Suazo, DANYA) Variability: Minimal - Undetectable to <=5 bpm (Elli Suazo, RN) Accelerations: None (Elli Suazo, RN) Decelerations: None (Elli Suazo, RN) Pain Scale: 4 (Elli Suazo, RN) Pain Presence: Intermittent (Elli Suazo, RN) Pain Type: Cramping (Elli Suazo, RN) Pain Location: Abdomen (Elli Suazo, RN) Pain Relief Measures: Comfort Measures (Elli Suazo, DANYA) Pain Coping: Talking Through Contractions (Elli Suazo, DANYA) Pain Assessment Comments: pt talking _ dozing with uc's (Elli Suazo, RN) IV/Blood Work: IV Infusing per Order (Elli Suazo, RN) Patient Position/Activity: Left Tilt; Semi-Fowlers (Elli Suazo, RN) Comfort Measures: Family Support (Elli Suazo, RN) Hygiene: Oral Care; Shower; Underpad Changed; Gown Changed; Linens Changed (Elli Suazo, RN) I/O Interventions: Up to BR (Elli Suazo, RN) Communication: RN at Bedside; RN Reviewed Strip; Report Given to @ Kalina MEEK CNM (Elli Suazo, RN) Notification Reason: Status Update (Elli Suazo, RN) LaborFlag: Antepartum (QS system process) Datetime: 05/15/2016 08:06 Stage of : Antepartum (Elli Suazo RN) NBP Sys/Pricilla/Mean (mmHg): 132 (QS system process) : 69 (QS system process) : 93 (QS system process) Pulse: 95 (QS system process) Respirations: 16 (Elli Suazo RN) Temperature (F): 98.6 (Elli Suazo RN) Temperature (C): 37.0 (QS system process) Monitor Interventions for UA: [place] Adjusted (Elli Suazo RN) Monitor Interventions for FHR: Ultrasound Adjusted (Elli Suazo RN) Communication: RN at Bedside; RN Reviewed Strip (Elli Suazo RN) LaborFlag: Antepartum (QS system process) Datetime: 05/15/2016 08:00 Stage of : Antepartum (Elli Suazo RN) Respirations: 18 (Elli Suazo RN) Monitor Mode: External (Elli Suazo RN) Monitor Interventions for UA: [place] Adjusted (Elli Suazo RN) Frequency (min): 2-4 (Elli Suazo RN) Quality: Mild/Moderate (Elli Suazo RN) Duration (sec): 55-70 (Elli Suazo, DANYA) Resting Tone (Palpate): Relaxed (Elli Suazo RN) Monitor Mode: External US (Elli Suazo RN) Monitor Interventions for FHR: Ultrasound Adjusted (Elli Suazo RN) FHR Baseline Rate : 145 (Elli Suazo RN) FHR Baseline Changes: No Baseline Change (Elli Suazo RN) Variability: Moderate 6-25 bpm (Elli Suazo, DANYA) Accelerations: 10X10 (Elli Suazo, RN) Decelerations: None (Elli Suazo RN) Pain Relief Measures: Comfort Measures (Elli Suazo RN) Pain Coping: Talking Through Contractions (Elli Suazo RN) IV/Blood Work: IV Infusing per Order (Elli Suazo, DANYA) Patient Position/Activity: Left Lateral; Low Fowlers (Elli Suazo, DANYA) Comfort Measures: Family Support (Elli Suazo, DANYA) Communication: RN at Bedside; RN Reviewed Strip (Elli Suazo RN) LaborFlag: Antepartum (QS system process) Datetime: 05/15/2016 07:56 I/O Interventions: Up to BR (Elli Suazo RN) Datetime: 05/15/2016 07:52 Monitor Interventions for UA: [place] Adjusted (Elli Sauzo RN) Monitor Interventions for FHR: Ultrasound Adjusted (Elli Suazo RN) Antiemetics/Antacids: Zofran ODT (mg) @ 8 (Elli Suazo, RN) Instructional Method: Verbal; Patient Instructed; Verbalized Understanding (Elli Suazo RN) Plan of Care: Plan of Care Discussed (Elli Suazo RN) Labor/Induction: Induction (Elli Suazo RN) Pain Management: Pain Scale/Goals; Comfort Measures (Elli Suazo RN) Related: Hydration (Elli Suazo, DANYA) Teaching Comments: JOLEEN (Elli Suazo RN) Communication: RN at Bedside; RN Reviewed Strip (Elli Suazo RN) Datetime: 05/15/2016 07:39 NBP Sys/Pricilla/Mean (mmHg): 134 (QS system process) : 80 (QS system process) : 101 (QS system process) Pulse: 106 (QS system process) LaborFlag: Antepartum (QS system process) Datetime: 05/15/2016 07:29 Stage of : Antepartum (Elli Suazo, RN) Respirations: 16 (Elli Suazo, RN) Monitor Mode: External (Elli Suazo, RN) Monitor Interventions for UA: [place] Adjusted (Elli Suazo, RN) Frequency (min): 4-5 (Elli Suazo, RN) Quality: Mild/Moderate (Elli Suazo, RN) Duration (sec): 50-80 (Elli Suazo, RN) Resting Tone (Palpate): Relaxed (Elli Suazo, RN) Monitor Mode: External US (Elli Suazo, RN) Monitor Interventions for FHR: Ultrasound Adjusted (Elli Suazo RN) FHR Baseline Rate : 140 (Elli Suazo, DANYA) FHR Baseline Changes: No Baseline Change (Elli Suazo, DANYA) Variability: Moderate 6-25 bpm (Elli Suazo, RN) Accelerations: None (Elli Suazo, RN) Decelerations: None (Elli Suazo, RN) Pain Presence: Intermittent (Elli Suazo, DANYA) Pain Type: Cramping (Elli Suazo, DANYA) Pain Location: Abdomen (Elli Suazo, RN) Pain Relief Measures: Comfort Measures (Elli Suazo, RN) Pain Coping: Sleeping (Elli Suazo, RN) IV/Blood Work: IV Infusing per Order (Elli Suazo, RN) Comfort Measures: Family Support (Elli Suazo, DANYA) I/O Interventions: Up to BR (Elli Suazo, RN) Communication: RN at Bedside; RN Reviewed Strip (Elli Suazo, RN) Communication Comments: PT DOZING, LEFT UNDISTURBED. (Elli Suazo, RN) LaborFlag: Antepartum (QS system process) Datetime: 05/15/2016 07:15 Communication: Report Given to @ LTory, RN; care relinquished at this time. (Nallely Field, RN) Datetime: 05/15/2016 07:05 Monitor Interventions for FHR: Ultrasound Adjusted (Nallely Field, RN) Comments: RN at bedside for monitor adjustment and maternal reposition (Nallely Field, RN) Datetime: 05/15/2016 07:04 NBP Sys/Pricilla/Mean (mmHg): 125 (QS system process) : 63 (QS system process) : 87 (QS system process) Pulse: 82 (QS system process) Datetime: 05/15/2016 07:00 Monitor Mode: External; Palpation (Nallely Gonzalez RN) Frequency (min): 3-3.5 (Nallely Gonzalez RN) Quality: Mild/Moderate (Nallely Gonzalez RN) Duration (sec): 60-100 (Nallely Gonzalez RN) Resting Tone (Palpate): Relaxed (Nallely Gonzalez RN) Monitor Mode: External US (Nallely Gonzalez RN) Monitor Interventions for FHR: Ultrasound Adjusted (Nallely Gonzalez RN) FHR Baseline Rate : 140 (Nallely Gonzalez RN) Variability: Moderate 6-25 bpm (Nallely Gonzalez RN) Accelerations: 15X15 (Nallely Gonzalez RN) Decelerations: Variable (Nallely Gonzalez RN) Comments: RN at bedside monitor adjustment and maternal reposition (Nallely Gonzalez RN)
[2016-05-15] MEDS: IBUPROFEN 800 MG TABLET PO SCH (21:02)
--- NOTE | 2016-05-16 06:13 | L&D General Admission ---
General Admit Datetime Report Generated by CPN: 05/16/2016 06:00 INFORMATION Patient Age: 20 (03/26/2018 14:37:QS system process) EDC: 05/08/2016 00:00 (05/12/2016 19:17:Valentina Pyle RN) : 3 (05/12/2016 19:17:Valentina Pyle RN) Para: 0 (05/12/2016 19:47:Valentina Pyle RN) Term: 0 (05/12/2016 19:17:Valentina Pyle RN) : 0 (05/12/2016 19:17:Valentina Pyle RN) Spontaneous Abortions: 2 (05/12/2016 19:17:Valentina Pyle RN) Induced Abortions: 0 (05/12/2016 19:17:Valentina Pyle RN) Livin (05/12/2016 19:17:Valentina Pyle RN) Cesareans: 0 (05/12/2016 19:17:Valentina Pyle RN) VBACs: 0 (05/12/2016 19:17:Valentina Pyle RN) Ectopic: 0 (05/12/2016 19:17:Valentina Pyle RN) Multiple Births: 0 (05/12/2016 19:17:Valentina Pyle RN) Baby, Number in Womb: 1 (05/12/2016 19:47:Valentina Pyle RN) CARE Primary Clinic Licensed Practical Nurse: [facility] (05/12/2016 19:17:Valentina Pyle RN) Clinic Licensed Practical Nurse Other: [facility] (05/12/2016 19:17:Valentina Pyle RN) Adequate Care: Yes (05/12/2016 19:17:Valentina Pyle RN) Prepregnancy Weight (lb): 188 (05/12/2016 19:17:Valentina Pyle RN) Prepregnancy Weight (kg): 85.5 (05/12/2016 19:17:QS system process) Height (in): 65 (05/13/2016 10:19:QS system process) ALLERGIES Medication Allergy: No (05/12/2016 19:17:Valentina Pyle RN) Medication Allergies: No Known Allergies (05/13/2016) (05/13/2016 09:59:QS system process) Latex Allergy: No Latex Allergies (05/12/2016 19:17:Valentina Pyle RN) Food Allergies: N/A (05/12/2016 19:17:Nallely Gonzalez RN) Environmental Allergies: N/A (05/12/2016 19:17:Nallely Gonzalez RN) COMMUNICATION Primary Language: Montenegrin (05/12/2016 19:17:Valentina Pyle RN) Medical Tx Preferred Language: Montenegrin (05/12/2016 19:17:Valentina Pyle RN) Communication Barrier(s): None (05/12/2016 19:17:aCrlos Bradley RN) DEMOGRAPHICS Address: [address] [place] [id number] (03/26/2016 14:37:QS system process) Zipcode: [address] (03/26/2016 14:37:QS system process) Home (03/26/2016 14:37:QS system process) SSN: [id number] (03/26/2016 14:37:QS system process) Next of Kin Name: HOMERO CASTANEDA (03/26/2016 14:37:QS system process) Next of Kin (03/26/2016 14:37:QS system process) Next of Kin Relationship: OR (03/26/2016 14:37:QS system process) Date of : 1995 (03/26/2016 14:37:QS system process) Marital Status: Single (03/26/2016 14:37:QS system process) Sex: Female (03/26/2016 14:37:QS system process) Race: (03/26/2016 14:37:QS system process) Ethnicity: Non- or (03/26/2016 14:37:QS system process) Zoroastrian: Other (03/26/2016 14:37:QS system process) FOB Involved: Yes (05/12/2016 19:17:Nallely Gonzalez RN) Father of Baby Name: Marcin Fields (05/12/2016 19:17:Nallely Gonzalez RN) DRUG AND ALCOHOL USE Alcohol: No (05/12/2016 19:17:Carlos Bradley RN) Cigarettes: Never Smoker. [id number] (05/12/2016 19:17:Carlos Bradley RN) Marijuana: No (05/12/2016 19:17:Carlos Bradley RN) Cocaine: No (05/12/2016 19:17:Carlos Bradley RN) Other Illicit Drugs: No (05/12/2016 19:17:Carlos Bradley RN) VACCINE HISTORY Influenza Vaccine: No (05/12/2016 19:17:Nallely Gonzalez RN) Pneumococcal Vaccine: No (05/12/2016 19:17:Nallely Gonzalez RN) Tetanus Vaccine: No (05/12/2016 19:17:Nallely Gonzalez RN) Tdap Vaccine: No (05/12/2016 19:17:Nallely Gonzalez RN) Hepatitis B Vaccine: No (05/12/2016 19:17:Nallely Gonzalez RN) Electroplating Worker: [facility] (05/12/2016 19:17:Nallely Gonzalez RN) Feeding Preference: Formula (05/12/2016 19:17:Elli Suazo RN) Benefit of Breast Feed Discussed: Yes (05/12/2016 19:17:Nallely Gonzalez RN) Circumcision: N/A (05/12/2016 19:17:Carlos Bradley RN) Classes Attended: No (05/12/2016 19:17:Carlos Bradley RN) Tubal Ligation: No (05/12/2016 19:17:Carlos Bradley RN) Tubal Authorization Signed: N/A (05/12/2016 19:17:Carlos Bradley RN) Consent: N/A (05/12/2016 19:17:Carlos Bradley RN) Consent Signed: N/A (05/12/2016 19:17:Carlos Bradley RN) Pain Management Plans: None (05/12/2016 19:17:Nallely Gonzalez RN) Plans for Labor and Delivery: None (05/12/2016 19:17:Nallely Gonzalez RN) Support Person: Marcin Fields (05/12/2016 19:17:Nallely Gonzalez RN) Support Person Relationship: Significant Other (05/12/2016 19:17:Nallely Gonzalez RN) Cultural/Spritual Practice: No (05/12/2016 19:17:Carlos Bradley RN) Spir/Cult Dietary Needs: No (05/12/2016 19:17:Carlos Bradley RN) LIVING SITUATION/DISCHARGE PLAN Living Arrangements: House (05/12/2016 19:17:Nallely Gonzalez RN) Adequate Access to:: Electric; Heat; Refrigeration; Plumbing/Running water; Phone; Transportation (05/12/2016 19:17:Nallely Gonzalez RN) WIC Program: Yes (05/12/2016 19:17:Nallely Gonzalez RN) Discharge Bronzer Person: Marcin Donnie (05/12/2016 19:17:Nallely Gonzalez RN) Person to Help after Discharge: Marcin Donnie (05/12/2016 19:17:Nallely Gonzalez RN) Currently Using Commun Resources: No (05/12/2016 19:17:Nallely Gonzalze RN) Outside Agency/Patient Accounts Manager: No (05/12/2016 19:17:Nallely Gonzalez RN) Car Seat for Discharge: Yes (05/12/2016 19:17:Nallely Gonzalez RN) Adoption Requested: No (05/12/2016 19:17:Nallely Gonzalez RN) Pt Contact w/ Post : N/A (05/12/2016 19:17:Nallely Gonzalez RN) LABS Blood Type: A Negative (05/12/2016 19:17:Valentina Pyle RN) Antibody Screen: negative (05/12/2016 19:17:Valentina Pyle RN) Rho(G) this : Yes (05/12/2016 19:17:Carlos Bradley RN) Date Rho(G) Given: 02/19/16 (05/12/2016 19:17:Carlos Bradley RN) Hemoglobin: 10.1 L (05/14/2016 19:45:QS system process) Hematocrit: 29.2 L (05/14/2016 19:45:QS system process) MCV: 81 (05/14/2016 19:45:QS system process) Group Beta Strep: negative (05/12/2016 19:17:Valentina Pyle RN) Gonorrhea: Negative (05/12/2016 19:17:Valentina Pyle RN) Chlamydia: Negative (05/12/2016 19:17:Valentina Pyle RN) RPR/VDRL: Nonreactive (05/12/2016 19:17:Valentina Pyle RN) HIV Exposure Test: Negative (05/12/2016 19:17:Valentina Pyle RN) Hepatitis B: Negative (05/12/2016 19:17:Carlos Bradley RN) Rubella: Non-Immune (05/12/2016 19:17:Carlos Bradley RN) Varicella: Negative (05/12/2016 19:17:Carlos Bradley RN) Varicella Titer: 60 (05/12/2016 19:17:Carlos Bradley RN) OB/PREVIOUS HISTORY Current Procedures: Ultrasound; NST (05/12/2016 19:17:Nallely Gonzalez RN) History of Previous : No (05/12/2016 19:17:Nallely Gonzalez RN) History of Gestational Diabetes: No (05/12/2016 19:17:Nallely Gonzalez RN) History of PIH: No (05/12/2016 19:17:Nallely Gonzalez RN) History of Incompetent Cervix: No (05/12/2016 19:17:Nallely Gonzalez RN) History of Placenta Previa/Abrup: No (05/12/2016 19:17:Nallely Gonzalez RN) History of Macrosomia: No (05/12/2016 19:17:Nallely Gonzalez RN) History of IUGR: No (05/12/2016 19:17:Nallely Gonzalez RN) History of Hemorrhage: No (05/12/2016 19:17:Nallely Gonzalez RN) History of Loss/Stillborn: No (05/12/2016 19:17:Nallely Gonzalez RN) History of : No (05/12/2016 19:17:Nallely Gonzalez RN) History of D (Rh) Sensitization: No (05/12/2016 19:17:Nallely Gonzalez RN) History Recurrent Loss/Stillborn: No (05/12/2016 19:17:Nallely Gonzalez RN) History Depression/PP Depression: No (05/12/2016 19:17:Nallely Gonzalez RN) History of Uterine Anomaly/FRIEDA: No (05/12/2016 19:17:Nallely Gonzalez RN) History of Infertility: No (05/12/2016 19:17:Nallely Gonzalez RN) History of ART Treatment: No (05/12/2016 19:17:Nallely Gonzalez RN) History of FRIEDA: No (05/12/2016 19:17:Nallely Gonzalez RN) Comments Obstetrical History: G1: SAB G2: SAB G3: Current (05/12/2016 19:17:Valentina Pyle RN) MEDICAL HISTORY Med Hx Diabetes: No (05/12/2016 19:17:Nallely Gonzalez RN) Med Hx Hypertension: No (05/12/2016 19:17:Nallely Gonzalez RN) Med Hx Heart Disease: No (05/12/2016 19:17:Nallely Gonzalez RN) Med Hx Autoimmune Disorder: No (05/12/2016 19:17:Nallely Field, RN) Med Hx Kidney Disease/UTI: No (05/12/2016 19:17:Nallely Gonzalez RN) Med Hx Neurologic/Epilepsy: No (05/12/2016 19:17:Nallely Gonzalez RN) Med Hx Psychiatric Disorders: No (05/12/2016 19:17:Nallely Gonzalez, RN) Med Hx Hepatitis/Liver Disease: No (05/12/2016 19:17:Nallely Gonzalez RN) Med Hx Varicosities/Phlebitis: No (05/12/2016 19:17:Nallely Gonzalez RN) Med Hx Thyroid Dysfunction: No (05/12/2016 19:17:Nallely Gonzalez RN) Med Hx Trauma/Violence: No (05/12/2016 19:17:Nallely Gonzalez RN) Med Hx Blood Transfusion: No (05/12/2016 19:17:Nallely Gonzalez RN) Med Hx Pulmonary (Asthma,TB): No (05/12/2016 19:17:Nallely Gonzalez RN) Med Hx Breast: No (05/12/2016 19:17:Nallely Gonzalez RN) Med Hx PLANT TECHNICIAN Surgery: No (05/12/2016 19:17:Nallely Gonzalez RN) Med Hx Hospitalization/Surgery: No (05/12/2016 19:17:Nallely Gonzalez RN) Med Hx Anesthetic Complications: No (05/12/2016 19:17:Nallely Gonzalez, RN) Med Hx Abnormal Pap Smear: No (05/12/2016 19:17:Nallely Gonzalez, RN) Other Medical Diseases: No (05/12/2016 19:17:Nallely Gonzalez RN) Med Hx Significant Family Hx: No (05/12/2016 19:17:Nallely Gonzalez RN) Details of Med/Surg Hx: Obesity (05/12/2016 19:17:Carlos Bradley RN) INFECTIOUS HISTORY Inf Hx Gonorrhea: No (05/12/2016 19:17:Nallely Gonzalez RN) Inf Hx Chlamydia: Yes (05/12/2016 19:17:Valentina Pyle RN) Inf Hx Syphilis: No (05/12/2016 19:17:Nallely Gonzalez RN) Inf Hx HIV/AIDS: No (05/12/2016 19:17:Nallely Gonzalez RN) Inf Hx Human Papilloma Virus: No (05/12/2016 19:17:Nallely Gonzalez RN) Inf Hx Pt/Partner Genital Herpes: No (05/12/2016 19:17:Nallely Gonzalez RN) Inf Hx Tuberculosis/Exposure: No (05/12/2016 19:17:Nallely Gonzalez RN) Inf Hx Hepatitis B,C: No (05/12/2016 19:17:Nallely Gonzalez RN) Inf Hx Rash or Viral Illness: No (05/12/2016 19:17:Nallely Gonzalez RN) Details of Infectious Hx: chlamydia in 2012 and 2014 (05/12/2016 19:17:Carlos Bradley RN) GENETIC HISTORY Gen Hx Age >=35 at [facility]: No (05/12/2016 19:17:Nallely Gonzalez RN) Gen Hx Thalassemia: No (05/12/2016 19:17:Nallely Gonzalez RN) Gen Hx Congenital Heart Defect: No (05/12/2016 19:17:Nallely Gonzalez RN) Gen Hx Neural Tube Defect: No (05/12/2016 19:17:Nallely Gonzalez RN) Gen Hx Down's Syndrome: No (05/12/2016 19:17:Nallely Gonzalez RN) Gen Hx Christ-Sachs: No (05/12/2016 19:17:Nallely Gonzalez RN) Gen Hx Tera: No (05/12/2016 19:17:Nallely Gonzalez RN) Gen Hx Familial Dysautonomia: No (05/12/2016 19:17:Nallely Gonzalez RN) Gen Hx Sickle Cell Disease/Trait: No (05/12/2016 19:17:Nallely Gonzalez RN) Gen Hx Hemophilia/Blood Disorder: No (05/12/2016 19:17:Nallely Gonzalez RN) Gen Hx Muscular Dystrophy: No (05/12/2016 19:17:Nallely Gonzalez RN) Gen Hx Cystic Fibrosis: No (05/12/2016 19:17:Nallely Gonzalez RN) Gen Hx Huntingtons Chorea: No (05/12/2016 19:17:Nallely Gonzalez RN) Gen Hx Mental Retardation/Autism: No (05/12/2016 19:17:Nallely Gonzalez RN) Gen Hx Tested for Fragile X: No (05/12/2016 19:17:Nallely Gonzalez RN) Gen Hx Other Inher/Chromosomal: No (05/12/2016 19:17:Nallely Gonzalez RN) Gen Hx Maternal Metabolic DO: No (05/12/2016 19:17:Nallely Gonzalez RN) Gen Hx Pt Father or FOB Defect: No (05/12/2016 19:17:Nallely Gonzalez RN) Gen Hx Other Genetic History: No (05/12/2016 19:17:Nallely Gonzalez RN) Gen Hx Drugs/Meds since LMP: Yes (05/12/2016 19:17:Valentina Pyle RN) Gen Hx Medications: pnv, iron (05/12/2016 19:17:Valentina Pyle RN)
--- NOTE | 2016-05-16 06:26 | L&D Care Plan ---
LD CARE PLANS Datetime Report Generated by CPN: 05/16/2016 06:15 Datetime: 05/14/2016 19:45 Pain State: Risk For (Tess Medina RN) Related To: Labor and Delivery Process; Treatment and Procedures (Tess Medina RN) Goal(s): Patients Pain will be Assessed and Managed; Patient will Verbalize Adequate Relief of Pain or the Ability to [place] with Current Pain (Tess Medina RN) Interventions: Assess Pain Severity on Scale of 0 (None) to 5 (Severe); Assess Type, Location and Intensity of Pain Each Time Client Reports Discomfort and Notify Provider if Unusal Pain Develops; Encourage Proper Breathing and Relaxation Techniques; Offer Alternatives Such as Repositioning, Calm Environment, Massages, Diversional Activities, Ice Pack, Splinting, and Ambulation; Administer Analgesics as Ordered; Assist with Epidural Placement as Appropriate; Evaluate Therapeutic Effectiveness of Medication and Treatments (Tess Medina RN) Outcome: Patient will Report Absence or Relief of Pain Consistent with Established Pain Goal (Tess Medina RN) Status: Ongoing (Tess Medina RN) Outcome: Patient will have a Decrease in Signs and Symptoms of Discomfort (Tess Medina RN) Status: Ongoing (Tess Medina RN) Outcome: Pain will be Controlled During Procedures (Tess Medina RN) Status: Ongoing (Tess Medina RN) Anxiety State: Not Applicable (Tess Medina, ) Knowledge Deficit State: Not Applicable (Tess Medina, ) Infection State: Risk For (Tess Medina RN) Related To: Invasive Procedures (Tess Medina RN) Goal(s): The Patient will be Free of Infection, Vital Signs Stable and Lab Work within Normal Parameters (Tess Medina RN) Interventions: Instruct and Reinforce Proper Handwashing, Hygiene, and Care Techniques to Patient and Family; Monitor Vital Signs; Monitor Patient for the Following Signs of Infection: Fever, Abdominal Tenderness, Unusual Discharge; Monitor Aminiotic Fluid, Urine and Lochia for Color and Odor; Observe Wounds, Incisions and Invasive Line Sites for Redness, Drainage and Edema; Assess IV Sites per Hospital Policy; Monitor Lab and Test Results and Notify Provider of Abnormal Findings; Assess Nutritional Status and Promote Good Nutrition (Tess Medina RN) Outcome: Patient will Remain Free of Infection (Tess Medina RN) Status: Ongoing (Tess Medina RN) Outcome: Infection will be Recognized Early to Allow for Prompt Treatment (Tess Medina RN) Status: Ongoing (Tess Medina RN) Outcome: Patient will have Vital Signs Within Expected Range (Tess Medina RN) Status: Ongoing (Tess Medina RN) Fluid Volume State: Not Applicable (Tess Vitrano, RN) Injury State: Risk For (Tess Medina RN) Related To: Labor and Delivery Process (Tess Medina RN) Goal(s): Patient will Remain Free from Injury (Tess Medina RN) Interventions: Monitoring as per Hospital Protocol; Assess Neurological Status; Perform Risk Assessment of Patients with Induction and ; Perform Fall Risk Assessment and Prevention per Hospital Protocol; Perform DVT Risk Assessment and Prophylaxis per Hospital Protocol; Ensure that Oxygen, Suction, and Resuscitation Medications and Equipment are Readily Available; Confirm Patient ID Prior to Procedure(s) and Medication Administration per Hospital Policy (Tess Medina, RN) Outcome: Successful Fall Risk Prevention (Tess Medina RN) Status: Ongoing (Tess Adam, RN) Outcome: Patient will Deliver Infant without Adverse Sequela (Tess Adam, RN) Status: Ongoing (Tess Vitrano, RN) Outcome: Patient's Neurological Status will Remain Stable (Tess Vitrano, RN) Status: Ongoing (Tess Vitrano, RN) Impaired Skin Integrity State: Risk For (Tess Vitrano, RN) Related To: Vaginal Delivery (Tess Medina RN) Goal(s): Patient will Maintain Optimal Skin Integrity, Free of Breakdown, Injury or Infection (Tess Medina RN) Interventions: Complete Screening for Pressure Ulcer Risk and Initiate Protocol per Hospital Policy; Monitor Site of Skin Impairment for Color Changes, Redness, Swelling, Warmth, Pain or Other Signs of Infection; Encourage and Assist with Position Changes; Monitor Patient's Mobility Status; Provide Adequate Nutrition and Fluids; Teach Patient Appropriate Hygienic Care; Teach Patient/Family Skin Care Management (Tess Medina RN) Outcome: Patient will not have Evidence of Injury Such as Skin Breakdown, Scrapes, Cuts, or Bruising (Tess Medina RN) Status: Ongoing (Tess Medina RN) Outcome: Patient will Report Any Altered Sensation or Pain at Site of Skin Impairment (Tess Medina RN) Status: Ongoing (Tess Medina RN) Outcome: Patients Incisions and Wounds will be without Signs or Symptoms of Infection (Tess Medina RN) Status: Ongoing (Tess Medina RN) Outcome: Patient will Demonstrate Understanding of Plan to Heal Skin and Prevent Reinjury and Verbalize Risk Factors (Tess Medina RN) Status: Ongoing (Tess Medina RN) Parenting Impaired State: Not Applicable (Tess Medina RN) Nutrition State: Not Applicable (Tess Vitrano, RN) Grieving State: Not Applicable (Tess Vitrano, RN) Additional Care Plan State: Not Applicable (Tess Vitrano, RN) Datetime: 05/14/2016 19:43 Pain State: Risk For (eTss Medina RN) Related To: Labor and Delivery Process; Treatment and Procedures (Tess Medina RN) Goal(s): Patients Pain will be Assessed and Managed; Patient will Verbalize Adequate Relief of Pain or the Ability to [place] with Current Pain (Tess Medina RN) Interventions: Assess Pain Severity on Scale of 0 (None) to 5 (Severe); Assess Type, Location and Intensity of Pain Each Time Client Reports Discomfort and Notify Provider if Unusal Pain Develops; Encourage Proper Breathing and Relaxation Techniques; Offer Alternatives Such as Repositioning, Calm Environment, Massages, Diversional Activities, Ice Pack, Splinting, and Ambulation; Administer Analgesics as Ordered; Assist with Epidural Placement as Appropriate; Evaluate Therapeutic Effectiveness of Medication and Treatments (Tess Medina RN) Outcome: Patient will Report Absence or Relief of Pain Consistent with Established Pain Goal (Tess Medina RN) Status: Ongoing (Tess Medina RN) Outcome: Patient will have a Decrease in Signs and Symptoms of Discomfort (Tess Medina RN) Status: Ongoing (Tess Medina RN) Outcome: Pain will be Controlled During Procedures (Tess Medina RN) Status: Ongoing (Tess Medina RN) Anxiety State: Not Applicable (Tess Medina RN) Knowledge Deficit State: Not Applicable (Tess Medina RN) Infection State: Risk For (Tess Medina RN) Related To: Invasive Procedures (Tess Medina RN) Goal(s): The Patient will be Free of Infection, Vital Signs Stable and Lab Work within Normal Parameters (Tess Medina RN) Interventions: Instruct and Reinforce Proper Handwashing, Hygiene, and Care Techniques to Patient and Family; Monitor Vital Signs; Monitor Patient for the Following Signs of Infection: Fever, Abdominal Tenderness, Unusual Discharge; Monitor Aminiotic Fluid, Urine and Lochia for Color and Odor; Observe Wounds, Incisions and Invasive Line Sites for Redness, Drainage and Edema; Assess IV Sites per Hospital Policy; Monitor Lab and Test Results and Notify Provider of Abnormal Findings; Assess Nutritional Status and Promote Good Nutrition (Tess Medina RN) Outcome: Patient will Remain Free of Infection (Tess Medina RN) Status: Ongoing (Tess Medina RN) Outcome: Infection will be Recognized Early to Allow for Prompt Treatment (Tess Medina RN) Status: Ongoing (Tess Medina RN) Outcome: Patient will have Vital Signs Within Expected Range (Tess Medina RN) Status: Ongoing (Tess Medina RN) Fluid Volume State: Not Applicable (Tess Medina RN) Injury State: Risk For (Tess Medina RN) Related To: Labor and Delivery Process (Tess Medina RN) Goal(s): Patient will Remain Free from Injury (Tess Medina RN) Interventions: Monitoring as per Hospital Protocol; Assess Neurological Status; Perform Risk Assessment of Patients with Induction and ; Perform Fall Risk Assessment and Prevention per Hospital Protocol; Perform DVT Risk Assessment and Prophylaxis per Hospital Protocol; Ensure that Oxygen, Suction, and Resuscitation Medications and Equipment are Readily Available; Confirm Patient ID Prior to Procedure(s) and Medication Administration per Hospital Policy (Tess Medina RN) Outcome: Successful Fall Risk Prevention (Tess Medina RN) Status: Ongoing (Tess Medina RN) Outcome: Patient will Deliver Infant without Adverse Sequela (Tess Medina RN) Status: Ongoing (Tess Medina RN) Outcome: Patient's Neurological Status will Remain Stable (Tess Medina RN) Status: Ongoing (Tess Medina RN) Impaired Skin Integrity State: Risk For (Tess Medina RN) Related To: Vaginal Delivery (Tess Medina RN) Goal(s): Patient will Maintain Optimal Skin Integrity, Free of Breakdown, Injury or Infection (Tess Medina RN) Interventions: Complete Screening for Pressure Ulcer Risk and Initiate Protocol per Hospital Policy; Monitor Site of Skin Impairment for Color Changes, Redness, Swelling, Warmth, Pain or Other Signs of Infection; Encourage and Assist with Position Changes; Monitor Patient's Mobility Status; Provide Adequate Nutrition and Fluids; Teach Patient Appropriate Hygienic Care; Teach Patient/Family Skin Care Management (Tess Medina RN) Outcome: Patient will not have Evidence of Injury Such as Skin Breakdown, Scrapes, Cuts, or Bruising (Tess Medina RN) Status: Ongoing (Tess Medina RN) Outcome: Patient will Report Any Altered Sensation or Pain at Site of Skin Impairment (Tess Medina RN) Status: Ongoing (Tess Medina RN) Outcome: Patients Incisions and Wounds will be without Signs or Symptoms of Infection (Tess Medina RN) Status: Ongoing (Tess Medina RN) Outcome: Patient will Demonstrate Understanding of Plan to Heal Skin and Prevent Reinjury and Verbalize Risk Factors (Tess Vitrano, RN) Status: Ongoing (Tess Vitrano, RN) Parenting Impaired State: Not Applicable (Tess Vitrano, RN) Nutrition State: Not Applicable (Tess Vitrano, RN) Grieving State: Not Applicable (Tess Vitrano, RN) Additional Care Plan State: Not Applicable (Tess Medina RN)
[2016-05-16] MEDS: IBUPROFEN 800 MG TABLET PO SCH ×3 (06:42→21:01)
[2016-05-16 08:00] LABS: HEMATOCRIT 24.8 % (36.0-47.0); HGB HCT DIFFERENCE 0.1; MEAN CORPUSCULAR HEMOGLOBIN 27.5 pg (27.0-33.4); MEAN CORPUSCULAR HGB CONC 33.5 g/dL (32.0-36.0); MEAN CORPUSCULAR VOLUME 82 fl (80-97); RED BLOOD COUNT 3.03 10^6/uL (3.72-5.28); RED CELL DISTRIBUTION WIDTH 15.5 % (11.5-14.0); WHITE BLOOD COUNT 11.8 10^3/uL (4.0-10.5)
[2016-05-16 08:05] LABS: HEMOGLOBIN 8.3 g/dL (12.0-15.5)
[2016-05-16] MEDS: FERROUS SULFATE 325 MG TABLET PO SCH ×2 (09:35→18:00)
[2016-05-16] MEDS: DOCUSATE SODIUM 100 MG CAPSULE PO SCH ×2 (09:35→18:00)
[2016-05-16] MEDS: SENNOSIDES/DOCUSATE 8.6-50 MG 1 EACH TABLET PO SCH (09:35)
[2016-05-16] MEDS: PRENATAL VITAMIN W-O CA NO5/FE FUMARATE/FA CAPSULE PO SCH (09:35)
--- NOTE | 2016-05-16 12:54 | PDOC PROGRESS REPORT ---
Subjective-OB Subjective: Post Delivery Day:1 20 year old s/p . Voiding and ambulating without difficulty. Denies any needs at this time Physical Exam (OB) Vital Signs: Temp Pulse Resp BP Pulse Ox 98.1 F 93 16 127/71 H 99 05/16/16 07:42 05/16/16 07:42 05/16/16 07:42 05/16/16 07:42 05/16/16 07:42 Intake & Output 05/15/16 05/16/16 05/17/16 06:59 06:59 06:59 Weight 99.7 kg - General General Appearance: Appears well In distress: None - Episiotomy/Laceration Site Condition: Well Approximated, Edematous - Lochia Lochia Amount: Moderate 25-50 ml Lochia Color: Rubra/Red - Abdomen Description: Soft Hernia Present: No Fundal Description: Firm, Midline Fundal Height: u/u - u/2 - Respiratory Respiratory Status: No respiratory distress - Extremities Upper extremity: Normal inspection Lower extremities: Normal inspection - Neurological Orientation: AAOx4 - Psychological Associated symptoms: Normal affect - bonding well with baby, Normal mood - bonding well with baby Objective-Diagnostic Laboratory: 05/16/16 07:05 05/16/16 07:05 WBC 11.8 H RBC 3.03 L Hgb 8.3 L Hct 24.8 L MCV 82 MCH 27.5 MCHC 33.5 RDW 15.5 H Plt Count 150 Assessment and Plan(PN) - Assessment and Plan (1) Vaginal delivery Is this a current diagnosis for this admission?: YesPlan: continue stay - Time Spent with Patient Time with patient: 15-25 minutes Medications reviewed and adjusted accordingly: Yes - Disposition Anticipated Discharge: Home Within: within 24 hours
--- NOTE | 2016-05-17 06:14 | L&D General Admission ---
General Admit Datetime Report Generated by CPN: 05/17/2016 06:00 INFORMATION Patient Age: 20 (03/26/2016 14:37:QS system process) EDC: 05/08/2016 00:00 (05/12/2016 19:17:Valentina Pyle RN) : 3 (05/12/2016 19:17:Valentina Pyle RN) Para: 0 (05/12/2016 19:47:Valentina Pyle RN) Term: 0 (05/12/2016 19:17:Valentina Pyle RN) : 0 (05/12/2016 19:17:Valentina Pyle RN) Spontaneous Abortions: 2 (05/12/2016 19:17:Valentina Pyle RN) Induced Abortions: 0 (05/12/2016 19:17:Valentina Pyle RN) Livin (05/12/2016 19:17:Valentina Pyle RN) Cesareans: 0 (05/12/2016 19:17:Valentina Pyle RN) VBACs: 0 (05/12/2016 19:17:Valentina Pyle RN) Ectopic: 0 (05/12/2016 19:17:Valentina Pyle RN) Multiple Births: 0 (05/12/2016 19:17:Valentina Pyle RN) Baby, Number in Womb: 1 (05/12/2016 19:47:Valentina Pyle RN) CARE Primary Spa Director/Finance: [facility] (05/12/2016 19:17:Valentina Pyle RN) Spa Director/Finance Other: [facility] (05/12/2016 19:17:Valentina Pyle RN) Adequate Care: Yes (05/12/2016 19:17:Valentina Pyle RN) Prepregnancy Weight (lb): 188 (05/12/2016 19:17:Valentina Pyle RN) Prepregnancy Weight (kg): 85.5 (05/12/2016 19:17:QS system process) Height (in): 65 (05/13/2016 10:19:QS system process) ALLERGIES Medication Allergy: No (05/12/2016 19:17:Valentina Pyle RN) Medication Allergies: No Known Allergies (05/13/2016) (05/13/2016 09:59:QS system process) Latex Allergy: No Latex Allergies (05/12/2016 19:17:Valentina Pyle RN) Food Allergies: N/A (05/12/2016 19:17:Nallely Gonzalez RN) Environmental Allergies: N/A (05/12/2016 19:17:Nallely Gonzalez RN) COMMUNICATION Primary Language: [place]er (05/12/2016 19:17:Valentina Pyle RN) Medical Tx Preferred Language: [place] (05/12/2016 19:17:Valentina Pyle RN) Communication Barrier(s): None (05/12/2016 19:17:Carlos Bradley RN) DEMOGRAPHICS Address: [address] [place] [id number] (03/26/2016 14:37:QS system process) Zipcode: [address] (03/26/2016 14:37:QS system process) Home (03/26/2016 14:37:QS system process) SSN: [id number] (03/26/2016 14:37:QS system process) Next of Kin Name: HOMERO CASTANEDA (03/26/2016 14:37:QS system process) Next of Kin (03/26/2016 14:37:QS system process) Next of Kin Relationship: OR (03/26/2016 14:37:QS system process) Date of : 1995 (03/26/2016 14:37:QS system process) Marital Status: Single (03/26/2016 14:37:QS system process) Sex: Female (03/26/2016 14:37:QS system process) Race: (03/26/2016 14:37:QS system process) Ethnicity: Non- or (03/26/2016 14:37:QS system process) Sikh: Other (03/26/2016 14:37:QS system process) FOB Involved: Yes (05/12/2016 19:17:Nallely Gonzalez RN) Father of Baby Name: Marcin Fields (05/12/2016 19:17:Nallely Gonzalez RN) DRUG AND ALCOHOL USE Alcohol: No (05/12/2016 19:17:Carlos Bradley RN) Cigarettes: Never Smoker. [id number] (05/12/2016 19:17:Carlos Bradley RN) Marijuana: No (05/12/2016 19:17:Carlos Bradley RN) Cocaine: No (05/12/2016 19:17:Carlos Bradley RN) Other Illicit Drugs: No (05/12/2016 19:17:Carlos Bradley RN) VACCINE HISTORY Influenza Vaccine: No (05/12/2016 19:17:Nallely Gonzalez RN) Pneumococcal Vaccine: No (05/12/2016 19:17:Nallely Gonzalez RN) Tetanus Vaccine: No (05/12/2016 19:17:Nallely Gonzalez RN) Tdap Vaccine: No (05/12/2016 19:17:Nallely Gonzalez RN) Hepatitis B Vaccine: No (05/12/2016 19:17:Nallely Gonzalez RN) Spanner Operator: [facility] (05/12/2016 19:17:Nallely Gonzalez RN) Feeding Preference: Formula (05/12/2016 19:17:Elli Suazo RN) Benefit of Breast Feed Discussed: Yes (05/12/2016 19:17:Nallely Gonzalez RN) Circumcision: N/A (05/12/2016 19:17:Carlos Bradley RN) Classes Attended: No (05/12/2016 19:17:Carlos Bradley RN) Tubal Ligation: No (05/12/2016 19:17:Carlos Bradley RN) Tubal Authorization Signed: N/A (05/12/2016 19:17:Carlos Bradley RN) Consent: N/A (05/12/2016 19:17:Carlos Bradley RN) Consent Signed: N/A (05/12/2016 19:17:Carlos Bradley RN) Pain Management Plans: None (05/12/2016 19:17:Nallely Gonzalez RN) Plans for Labor and Delivery: None (05/12/2016 19:17:Nallely Gonzalez RN) Support Person: Marcin Fields (05/12/2016 19:17:Nallely Gonzalez RN) Support Person Relationship: Significant Other (05/12/2016 19:17:Nallely Gonzalez RN) Cultural/Spritual Practice: No (05/12/2016 19:17:Carlos Bradley RN) Spir/Cult Dietary Needs: No (05/12/2016 19:17:Carlos Bradley RN) LIVING SITUATION/DISCHARGE PLAN Living Arrangements: House (05/12/2016 19:17:Nallely Gonzalez RN) Adequate Access to:: Electric; Heat; Refrigeration; Plumbing/Running water; Phone; Transportation (05/12/2016 19:17:Nallely Gonzalez RN) WIC Program: Yes (05/12/2016 19:17:Nallely Gonzalez RN) Discharge Chief Service Dispatcher Person: Marcin Donnie (05/12/2016 19:17:Nallely Gonzalez RN) Person to Help after Discharge: Marcin Donnie (05/12/2016 19:17:Nallely Gonzalez RN) Currently Using Commun Resources: No (05/12/2016 19:17:Nallely Gonzalez RN) Outside Agency/Magnetizer: No (05/12/2016 19:17:Nallely Gonzalez RN) Car Seat for Discharge: Yes (05/12/2016 19:17:Nallely Gonzalez RN) Adoption Requested: No (05/12/2016 19:17:Nallely Gonzalez RN) Pt Contact w/ Post : N/A (05/12/2016 19:17:Nallely Gonzalez RN) LABS Blood Type: A Negative (05/12/2016 19:17:Valentina Pyle RN) Antibody Screen: negative (05/12/2016 19:17:Valentina Pyle RN) Rho(G) this : Yes (05/12/2016 19:17:Carlos Bradley RN) Date Rho(G) Given: 02/19/16 (05/12/2016 19:17:Carlos Bradley RN) Hemoglobin: 8.3 L (05/16/2016 07:05:QS system process) Hematocrit: 24.8 L (05/16/2016 07:05:QS system process) MCV: 82 (05/16/2016 07:05:QS system process) Group Beta Strep: negative (05/12/2016 19:17:Valentina Pyle RN) Gonorrhea: Negative (05/12/2016 19:17:Valentina Pyle RN) Chlamydia: Negative (05/12/2016 19:17:Valentina Pyle RN) RPR/VDRL: Nonreactive (05/12/2016 19:17:Valentina Pyle RN) HIV Exposure Test: Negative (05/12/2016 19:17:Valentina Pyle RN) Hepatitis B: Negative (05/12/2016 19:17:Carlos Bradley RN) Rubella: Non-Immune (05/12/2016 19:17:Carlos Bradley RN) Varicella: Negative (05/12/2016 19:17:Carlos Bradley RN) Varicella Titer: 60 (05/12/2016 19:17:Carlos Bradley RN) OB/PREVIOUS HISTORY Current Procedures: Ultrasound; NST (05/12/2016 19:17:Nallely Gonzalez RN) History of Previous : No (05/12/2016 19:17:Nallely Gonzalez RN) History of Gestational Diabetes: No (05/12/2016 19:17:Nallely Gonzalez RN) History of PIH: No (05/12/2016 19:17:Nallely Gonzalez RN) History of Incompetent Cervix: No (05/12/2016 19:17:Nallely Gonzalez RN) History of Placenta Previa/Abrup: No (05/12/2016 19:17:Nallely Gonzalez RN) History of Macrosomia: No (05/12/2016 19:17:Nallely Gonzalez RN) History of IUGR: No (05/12/2016 19:17:Nallely Gonzalez RN) History of Hemorrhage: No (05/12/2016 19:17:Nallely Gonzalez RN) History of Loss/Stillborn: No (05/12/2016 19:17:Nallely Gonzalez RN) History of : No (05/12/2016 19:17:Nallely Gonzalez RN) History of D (Rh) Sensitization: No (05/12/2016 19:17:Nallely Gonzalez RN) History Recurrent Loss/Stillborn: No (05/12/2016 19:17:Nallely Gonazlez RN) History Depression/PP Depression: No (05/12/2016 19:17:Nallely Gonzalez RN) History of Uterine Anomaly/FRIEDA: No (05/12/2016 19:17:Nallely Gonzalez RN) History of Infertility: No (05/12/2016 19:17:Nallely Gonzalez RN) History of ART Treatment: No (05/12/2016 19:17:Nallely Gonzalez RN) History of FRIEDA: No (05/12/2016 19:17:Nallely Gonzalez RN) Comments Obstetrical History: G1: SAB G2: SAB G3: Current (05/12/2016 19:17:Valentina Pyle RN) MEDICAL HISTORY Med Hx Diabetes: No (05/12/2016 19:17:Nallely Gonzalez RN) Med Hx Hypertension: No (05/12/2016 19:17:Nallely Gonzalez RN) Med Hx Heart Disease: No (05/12/2016 19:17:Nallely Gonzalez RN) Med Hx Autoimmune Disorder: No (05/12/2016 19:17:Nallely Field, RN) Med Hx Kidney Disease/UTI: No (05/12/2016 19:17:Nallely Gonzalez RN) Med Hx Neurologic/Epilepsy: No (05/12/2016 19:17:Nallely Gonzalez RN) Med Hx Psychiatric Disorders: No (05/12/2016 19:17:Nallely Gonzalez, RN) Med Hx Hepatitis/Liver Disease: No (05/12/2016 19:17:Nallely Gonzalez RN) Med Hx Varicosities/Phlebitis: No (05/12/2016 19:17:Nallely Gonzalez RN) Med Hx Thyroid Dysfunction: No (05/12/2016 19:17:Nallely Gonzalez RN) Med Hx Trauma/Violence: No (05/12/2016 19:17:Nallely Gonzalez RN) Med Hx Blood Transfusion: No (05/12/2016 19:17:Nallely Gonzalez RN) Med Hx Pulmonary (Asthma,TB): No (05/12/2016 19:17:Nallely Gonzalez RN) Med Hx Breast: No (05/12/2016 19:17:Nallely Gonzalez RN) Med Hx MEAL GRINDER TENDER Surgery: No (05/12/2016 19:17:Nallely Goznalez RN) Med Hx Hospitalization/Surgery: No (05/12/2016 19:17:Nallely Gonzalez RN) Med Hx Anesthetic Complications: No (05/12/2016 19:17:Nallely Gonzalez, RN) Med Hx Abnormal Pap Smear: No (05/12/2016 19:17:Nallely Gonzalez, RN) Other Medical Diseases: No (05/12/2016 19:17:Nallely Gonzalez RN) Med Hx Significant Family Hx: No (05/12/2016 19:17:Nallely Gonzalez RN) Details of Med/Surg Hx: Obesity (05/12/2016 19:17:Carlos Bradley RN) INFECTIOUS HISTORY Inf Hx Gonorrhea: No (05/12/2016 19:17:Nallely Gonzalez RN) Inf Hx Chlamydia: Yes (05/12/2016 19:17:Valentina Pyle RN) Inf Hx Syphilis: No (05/12/2016 19:17:Nallely Gonzalez RN) Inf Hx HIV/AIDS: No (05/12/2016 19:17:Nallely Gonzalez RN) Inf Hx Human Papilloma Virus: No (05/12/2016 19:17:Nallely Gonzalez RN) Inf Hx Pt/Partner Genital Herpes: No (05/12/2016 19:17:Nallely Gonzalez RN) Inf Hx Tuberculosis/Exposure: No (05/12/2016 19:17:Nallely Gonzalez RN) Inf Hx Hepatitis B,C: No (05/12/2016 19:17:Nallely Gonzalez RN) Inf Hx Rash or Viral Illness: No (05/12/2016 19:17:Nallely Gonzalez RN) Details of Infectious Hx: chlamydia in 2012 and 2014 (05/12/2016 19:17:Carlos Bradley RN) GENETIC HISTORY Gen Hx Age >=35 at [facility]: No (05/12/2016 19:17:Nallely Gonzalez RN) Gen Hx Thalassemia: No (05/12/2016 19:17:Nallely Gonzalez RN) Gen Hx Congenital Heart Defect: No (05/12/2016 19:17:Nallely Gonzalez RN) Gen Hx Neural Tube Defect: No (05/12/2016 19:17:Nallely Gonzalez RN) Gen Hx Down's Syndrome: No (05/12/2016 19:17:Nallely Gonzalez RN) Gen Hx Christ-Sachs: No (05/12/2016 19:17:Nallely Gonzalez RN) Gen Hx Tera: No (05/12/2016 19:17:Nallely Gonzalez RN) Gen Hx Familial Dysautonomia: No (05/12/2016 19:17:Nallely Gonzalez RN) Gen Hx Sickle Cell Disease/Trait: No (05/12/2016 19:17:Nallely Gonzalez RN) Gen Hx Hemophilia/Blood Disorder: No (05/12/2016 19:17:Nallely Gonzalez RN) Gen Hx Muscular Dystrophy: No (05/12/2016 19:17:Nallely Gonzalez RN) Gen Hx Cystic Fibrosis: No (05/12/2016 19:17:Nallely Gonzalez RN) Gen Hx Huntingtons Chorea: No (05/12/2016 19:17:Nallely Gonzalez RN) Gen Hx Mental Retardation/Autism: No (05/12/2016 19:17:Nallely Gonzaelz RN) Gen Hx Tested for Fragile X: No (05/12/2016 19:17:Nallely Gonzalez RN) Gen Hx Other Inher/Chromosomal: No (05/12/2016 19:17:Nallely Gonzalez RN) Gen Hx Maternal Metabolic DO: No (05/12/2016 19:17:Nallely Gonzalez RN) Gen Hx Pt Father or FOB Defect: No (05/12/2016 19:17:Nallely Gonzalez RN) Gen Hx Other Genetic History: No (05/12/2016 19:17:Nallely Gonzalez RN) Gen Hx Drugs/Meds since LMP: Yes (05/12/2016 19:17:Valentina Pyle RN) Gen Hx Medications: pnv, iron (05/12/2016 19:17:Valentina Pyle RN)
[2016-05-17] MEDS: IBUPROFEN 800 MG TABLET PO SCH (06:25)
[2016-05-17 08:52] VITALS: BP 122/90
--- NOTE | 2016-05-17 09:22 | PDOC PROGRESS REPORT ---
Subjective-OB Subjective: Post Delivery Day: 20 year old. Denies any needs at this time Doing well, holding baby, FOB in bed, ready to go home, bottle feeding, voiding Physical Exam (OB) Vital Signs: Temp Pulse Resp BP Pulse Ox 97.6 F 89 16 122/90 H 100 05/17/16 08:39 05/17/16 08:39 05/17/16 08:39 05/17/16 08:39 05/17/16 08:39 Intake & Output 05/16/16 05/17/16 05/18/16 06:59 06:59 06:59 Intake Total 300 Balance 300 - Lochia Lochia Amount: Small 10-25 ml Lochia Color: Rubra/Red - Abdomen Description: Soft Hernia Present: No Fundal Description: Firm, Midline Fundal Height: u/u - u/2 Objective-Diagnostic Laboratory: 05/16/16 07:05 Assessment and Plan(PN) - Assessment and Plan (1) Anemia associated with acute blood loss Is this a current diagnosis for this admission?: Yes (2) Vaginal delivery Is this a current diagnosis for this admission?: Yes - Time Spent with Patient Time with patient: Less than 15 minutes - home today Medications reviewed and adjusted accordingly: Yes - Disposition Anticipated Discharge: Home
--- NOTE | 2016-05-17 09:30 | PDOC DISCHARGE SUMMARY ---
Discharge Summary-OB Discharge Date: 05/17/16 - Final Diagnosis (1) Anemia associated with acute blood loss Is this a current diagnosis for this admission?: Yes (2) Vaginal delivery Is this a current diagnosis for this admission?: Yes - Discharge Medication Home Medications: Pnv95/Ferrous Fumarate/FA [ Caplet] 1 tab PO DAILY PRN 05/13/16 Docusate Sodium [Colace 100 mg Capsule] 100 mg PO BID #60 capsule 05/16/16 Ferrous Sulfate [Feosol 325 mg Tablet] 325 mg PO BID #60 tablet 05/16/16 Ibuprofen [Motrin 800 mg Tablet] 800 mg PO Q8HP PRN #90 tablet 05/16/16 Pnv W-O Ca No5/Fe Fumarate/FA [-U Multiple Vitamin Capsule] 1 cap PO DAILY #0 capsule 05/16/16 Gestational Age: 41 Reason(s) for Admission: Induction of Labor Procedures: NST, Ultrasound Intrapartum Procedure(s): Spontaneous Vaginal Delivery Intrapartum Procedure Note: AROM, heavy Mec Complication(s): Laceration-Vaginal, Laceration-Perineal Laceration-Degree: 1st - [place] Data Baby 1 Female at 1 minute: 8 at 5 minutes: 9 Weight: 3.544 kg Home with Mother: Yes Complications: No - Diagnosis Test Laboratory: Temp Pulse Resp BP Pulse Ox 97.6 F 89 16 122/90 H 100 05/17/16 08:39 05/17/16 08:39 05/17/16 08:39 05/17/16 08:39 05/17/16 08:39 05/14/16 05/14/16 05/16/16 19:25 19:45 07:05 RBC 3.62 L 3.03 L Hgb 10.1 L 8.3 L Hct 29.2 L 24.8 L Urine Opiates Screen NEGATIVE - Discharge information/Instructions Discharge Activity: Activity As Tolerated, Pelvic Rest, Slowly Increase Activity , No tub bath Discharge Diet: As Tolerated, Regular Disposition: HOME, SELF-CARE Follow up with: [facility] in: 4, Weeks
[2016-05-17] MEDS: PRENATAL VITAMIN W-O CA NO5/FE FUMARATE/FA CAPSULE PO SCH (09:54)
[2016-05-17] MEDS: DOCUSATE SODIUM 100 MG CAPSULE PO SCH (09:54)
[2016-05-17] MEDS: SENNOSIDES/DOCUSATE 8.6-50 MG 1 EACH TABLET PO SCH (09:54)
[2016-05-17] MEDS: FERROUS SULFATE 325 MG TABLET PO SCH (09:54)
--- NOTE | 2016-05-18 06:12 | L&D General Admission ---
General Admit Datetime Report Generated by CPN: 05/18/2016 06:00 INFORMATION Patient Age: 20 (03/26/2016 14:37:QS system process) EDC: 05/08/2016 00:00 (05/12/2016 19:17:Valentina Pyle RN) : 3 (05/12/2016 19:17:Valentina Pyle RN) Para: 0 (05/12/2016 19:47:Valentina Pyle RN) Term: 0 (05/12/2016 19:17:Valentina Pyle RN) : 0 (05/12/2016 19:17:Valentina Pyle RN) Spontaneous Abortions: 2 (05/12/2016 19:17:Valentina Pyle RN) Induced Abortions: 0 (05/12/2016 19:17:Valentina Pyle RN) Livin (05/12/2016 19:17:Valentina Pyle RN) Cesareans: 0 (05/12/2016 19:17:Valentina Pyle RN) VBACs: 0 (05/12/2016 19:17:Valentina Pyle RN) Ectopic: 0 (05/12/2016 19:17:Valentina Pyle RN) Multiple Births: 0 (05/12/2016 19:17:Valentina Pyle RN) Baby, Number in Womb: 1 (05/12/2016 19:47:Valentina Pyle RN) CARE Primary Cardiac Rehabilitation Specialist: [email or web address] (05/12/2016 19:17:Valentina Pyle RN) Cardiac Rehabilitation Specialist Other: [facility] (05/12/2016 19:17:Valentina Pyle RN) Adequate Care: Yes (05/12/2016 19:17:Valentina Pyle RN) Prepregnancy Weight (lb): 188 (05/12/2016 19:17:Valentina Pyle RN) Prepregnancy Weight (kg): 85.5 (05/12/2016 19:17:QS system process) Height (in): 65 (05/13/2016 10:19:QS system process) ALLERGIES Medication Allergy: No (05/12/2016 19:17:Valentina Pyle RN) Medication Allergies: No Known Allergies (05/13/2016) (05/13/2016 09:59:QS system process) Latex Allergy: No Latex Allergies (05/12/2016 19:17:Valentina Pyle RN) Food Allergies: N/A (05/12/2016 19:17:Nallely Gonzalez RN) Environmental Allergies: N/A (05/12/2016 19:17:Nallely Gonzalez RN) COMMUNICATION Primary Language: Palauan (05/12/2016 19:17:Valentina Pyle RN) Medical Tx Preferred Language: Palauan (05/12/2016 19:17:Valentina Pyle RN) Communication Barrier(s): None (05/12/2016 19:17:Carlos Bradley RN) DEMOGRAPHICS Address: [address] [place] [id number] (03/26/2016 14:37:QS system process) Zipcode: [address] (03/26/2016 14:37:QS system process) Home (03/26/2016 14:37:QS system process) SSN: [id number] (03/26/2016 14:37:QS system process) Next of Kin Name: HOMERO CASTANEDA (03/26/2016 14:37:QS system process) Next of Kin (03/26/2016 14:37:QS system process) Next of Kin Relationship: OR (03/26/2016 14:37:QS system process) Date of : 1995 (03/26/2016 14:37:QS system process) Marital Status: Single (03/26/2016 14:37:QS system process) Sex: Female (03/26/2016 14:37:QS system process) Race: (03/26/2016 14:37:QS system process) Ethnicity: Non- or (03/26/2016 14:37:QS system process) Presybeterian: Other (03/26/2016 14:37:QS system process) FOB Involved: Yes (05/12/2016 19:17:Nallely Gonzalez RN) Father of Baby Name: Marcin Fields (05/12/2016 19:17:Nallely Gonzalez RN) DRUG AND ALCOHOL USE Alcohol: No (05/12/2016 19:17:Carlos Bradley RN) Cigarettes: Never Smoker. [id number] (05/12/2016 19:17:Carlos Bradley RN) Marijuana: No (05/12/2016 19:17:Carlos Bradley RN) Cocaine: No (05/12/2016 19:17:Carlos Bradley RN) Other Illicit Drugs: No (05/12/2016 19:17:Carlos Bradley RN) VACCINE HISTORY Influenza Vaccine: No (05/12/2016 19:17:Nallely Gonzalez RN) Pneumococcal Vaccine: No (05/12/2016 19:17:Nallely Gonzalez RN) Tetanus Vaccine: No (05/12/2016 19:17:Nallely Gonzalez RN) Tdap Vaccine: No (05/12/2016 19:17:Nallely Gonzalez RN) Hepatitis B Vaccine: No (05/12/2016 19:17:Nallely Gonzalez RN) Aircraft Systems Technician: [facility] (05/12/2016 19:17:Nallely Gonzalez RN) Feeding Preference: Formula (05/12/2016 19:17:Elli Suazo RN) Benefit of Breast Feed Discussed: Yes (05/12/2016 19:17:Nallely Gonzalez RN) Circumcision: N/A (05/12/2016 19:17:Carlos Bradley RN) Classes Attended: No (05/12/2016 19:17:Carlos Bradley RN) Tubal Ligation: No (05/12/2016 19:17:Carlos Bradley RN) Tubal Authorization Signed: N/A (05/12/2016 19:17:Carlos Bradley RN) Consent: N/A (05/12/2016 19:17:Carlos Bradley RN) Consent Signed: N/A (05/12/2016 19:17:Carlos Bradley RN) Pain Management Plans: None (05/12/2016 19:17:Nallely Gonzalez RN) Plans for Labor and Delivery: None (05/12/2016 19:17:Nallely Gnozalez RN) Support Person: Marcin Fields (05/12/2016 19:17:Nallely Gonzalez RN) Support Person Relationship: Significant Other (05/12/2016 19:17:Nallely Gonzalez RN) Cultural/Spritual Practice: No (05/12/2016 19:17:Carlos Bradley RN) Spir/Cult Dietary Needs: No (05/12/2016 19:17:Carlos Bradley RN) LIVING SITUATION/DISCHARGE PLAN Living Arrangements: House (05/12/2016 19:17:Nallely Gonzalez RN) Adequate Access to:: Electric; Heat; Refrigeration; Plumbing/Running water; Phone; Transportation (05/12/2016 19:17:Nallely Gonzalez RN) WIC Program: Yes (05/12/2016 19:17:Nallely Gonzalez RN) Discharge Elevator Service Mechanic Person: Marcin Donnie (05/12/2016 19:17:Nallely Gonzalez RN) Person to Help after Discharge: Marcin Donnie (05/12/2016 19:17:Nallely Gonzalez RN) Currently Using Commun Resources: No (05/12/2016 19:17:Nallely Gonzalez RN) Outside Agency/Plastic Sheets Supervisor: No (05/12/2016 19:17:Nallely Gonzalez RN) Car Seat for Discharge: Yes (05/12/2016 19:17:Nallely Gonzalez RN) Adoption Requested: No (05/12/2016 19:17:Nallely Gonzalez RN) Pt Contact w/ Post : N/A (05/12/2016 19:17:Nallely Gonzalez RN) LABS Blood Type: A Negative (05/12/2016 19:17:Valentina Pyle RN) Antibody Screen: negative (05/12/2016 19:17:Valentina Pyle RN) Rho(G) this : Yes (05/12/2016 19:17:Carlos Bradley RN) Date Rho(G) Given: 02/19/16 (05/12/2016 19:17:Carlos Bradley RN) Hemoglobin: 8.3 L (05/16/2016 07:05:QS system process) Hematocrit: 24.8 L (05/16/2016 07:05:QS system process) MCV: 82 (05/16/2016 07:05:QS system process) Group Beta Strep: negative (05/12/2016 19:17:Valentina Pyle RN) Gonorrhea: Negative (05/12/2016 19:17:Valentina Pyle RN) Chlamydia: Negative (05/12/2016 19:17:Valentina Pyle RN) RPR/VDRL: Nonreactive (05/12/2016 19:17:Valentina Pyle RN) HIV Exposure Test: Negative (05/12/2016 19:17:Valentina Pyle RN) Hepatitis B: Negative (05/12/2016 19:17:Carlos Bradley RN) Rubella: Non-Immune (05/12/2016 19:17:Carlos Bradley RN) Varicella: Negative (05/12/2016 19:17:Carlos Bradley RN) Varicella Titer: 60 (05/12/2016 19:17:Carlos Bradley RN) OB/PREVIOUS HISTORY Current Procedures: Ultrasound; NST (05/12/2016 19:17:Nallely Gonzalez RN) History of Previous : No (05/12/2016 19:17:Nallely Gonzalez RN) History of Gestational Diabetes: No (05/12/2016 19:17:Nallely Gonzalez RN) History of PIH: No (05/12/2016 19:17:Nallely Gonzalez RN) History of Incompetent Cervix: No (05/12/2016 19:17:Nallely Gonzalez RN) History of Placenta Previa/Abrup: No (05/12/2016 19:17:Nallely Gonzalez RN) History of Macrosomia: No (05/12/2016 19:17:Nallely Gonzalez RN) History of IUGR: No (05/12/2016 19:17:Nallely Gonzalez RN) History of Hemorrhage: No (05/12/2016 19:17:Nalelly Gonzalez RN) History of Loss/Stillborn: No (05/12/2016 19:17:Nallely Gonzalez RN) History of : No (05/12/2016 19:17:Nallely Gonzalez RN) History of D (Rh) Sensitization: No (05/12/2016 19:17:Nallely Gonzalez RN) History Recurrent Loss/Stillborn: No (05/12/2016 19:17:Nallely Gonzalez RN) History Depression/PP Depression: No (05/12/2016 19:17:Nallely Gonzalez RN) History of Uterine Anomaly/FRIEDA: No (05/12/2016 19:17:Nallely Gonzalez RN) History of Infertility: No (05/12/2016 19:17:Nallely Gonzalez RN) History of ART Treatment: No (05/12/2016 19:17:Nallely Gonzalez RN) History of FRIEDA: No (05/12/2016 19:17:Nallely Gonzalez RN) Comments Obstetrical History: G1: SAB G2: SAB G3: Current (05/12/2016 19:17:Valentina Pyle RN) MEDICAL HISTORY Med Hx Diabetes: No (05/12/2016 19:17:Nallely Gonzalez RN) Med Hx Hypertension: No (05/12/2016 19:17:Nallely Gonzalez RN) Med Hx Heart Disease: No (05/12/2016 19:17:Nallely Gonzalez RN) Med Hx Autoimmune Disorder: No (05/12/2016 19:17:Nallely Field, RN) Med Hx Kidney Disease/UTI: No (05/12/2016 19:17:Nallely Gonzalez RN) Med Hx Neurologic/Epilepsy: No (05/12/2016 19:17:Nallely Gonzalez RN) Med Hx Psychiatric Disorders: No (05/12/2016 19:17:Nallely Gonzalez, RN) Med Hx Hepatitis/Liver Disease: No (05/12/2016 19:17:Nallely Gonzalez RN) Med Hx Varicosities/Phlebitis: No (05/12/2016 19:17:Nallely Gonzalez RN) Med Hx Thyroid Dysfunction: No (05/12/2016 19:17:Nallely Gonzalez RN) Med Hx Trauma/Violence: No (05/12/2016 19:17:Nallely Gonzalez RN) Med Hx Blood Transfusion: No (05/12/2016 19:17:Nallely Gonzalez RN) Med Hx Pulmonary (Asthma,TB): No (05/12/2016 19:17:Nallely Gonzalez RN) Med Hx Breast: No (05/12/2016 19:17:Nallely Gonzalez RN) Med Hx HAND QUILTER Surgery: No (05/12/2016 19:17:Nallely Gonzalez RN) Med Hx Hospitalization/Surgery: No (05/12/2016 19:17:Nallely Gonzalez RN) Med Hx Anesthetic Complications: No (05/12/2016 19:17:Nallely Gonzalez, RN) Med Hx Abnormal Pap Smear: No (05/12/2016 19:17:Nallely Gonzalez, RN) Other Medical Diseases: No (05/12/2016 19:17:Nallely Gonzalez RN) Med Hx Significant Family Hx: No (05/12/2016 19:17:Nallely Gonzalez RN) Details of Med/Surg Hx: Obesity (05/12/2016 19:17:Carlos Bradley RN) INFECTIOUS HISTORY Inf Hx Gonorrhea: No (05/12/2016 19:17:Nallely Gonzalez RN) Inf Hx Chlamydia: Yes (05/12/2016 19:17:Valentina Pyle RN) Inf Hx Syphilis: No (05/12/2016 19:17:Nallely Gonzalez RN) Inf Hx HIV/AIDS: No (05/12/2016 19:17:Nallely Gonzalez RN) Inf Hx Human Papilloma Virus: No (05/12/2016 19:17:Nallely Gonzalez RN) Inf Hx Pt/Partner Genital Herpes: No (05/12/2016 19:17:Nallely Gonzalez RN) Inf Hx Tuberculosis/Exposure: No (05/12/2016 19:17:Nallely Gonzalez RN) Inf Hx Hepatitis B,C: No (05/12/2016 19:17:Nallely Gonzalez RN) Inf Hx Rash or Viral Illness: No (05/12/2016 19:17:Nallely Gonzalez RN) Details of Infectious Hx: chlamydia in 2012 and 2014 (05/12/2016 19:17:Carlos Bradley RN) GENETIC HISTORY Gen Hx Age >=35 at SHAW[facility]: No (05/12/2016 19:17:Nallely Gonzalez RN) Gen Hx Thalassemia: No (05/12/2016 19:17:Nallely Gonzalez RN) Gen Hx Congenital Heart Defect: No (05/12/2016 19:17:Nallely Gonzalez RN) Gen Hx Neural Tube Defect: No (05/12/2016 19:17:Nallely Gonzalez RN) Gen Hx Down's Syndrome: No (05/12/2016 19:17:Nallely Gonzalez RN) Gen Hx Christ-Sachs: No (05/12/2016 19:17:Nallely Gonzalez RN) Gen Hx Tera: No (05/12/2016 19:17:Nallely Gonzalez RN) Gen Hx Familial Dysautonomia: No (05/12/2016 19:17:Nallely Gonzalez RN) Gen Hx Sickle Cell Disease/Trait: No (05/12/2016 19:17:Nallely Gonzalez RN) Gen Hx Hemophilia/Blood Disorder: No (05/12/2016 19:17:Nallely Gonzalez RN) Gen Hx Muscular Dystrophy: No (05/12/2016 19:17:Nallely Gonzalez RN) Gen Hx Cystic Fibrosis: No (05/12/2016 19:17:Nallely Gonzalez RN) Gen Hx Huntingtons Chorea: No (05/12/2016 19:17:Nallely Gonzalez RN) Gen Hx Mental Retardation/Autism: No (05/12/2016 19:17:Nallely Gonzalez RN) Gen Hx Tested for Fragile X: No (05/12/2016 19:17:Nallely Gonzalez RN) Gen Hx Other Inher/Chromosomal: No (05/12/2016 19:17:Nallely Gonzalez RN) Gen Hx Maternal Metabolic DO: No (05/12/2016 19:17:Nallely Gonzalez RN) Gen Hx Pt Father or FOB Defect: No (05/12/2016 19:17:Nallely Gonzalez RN) Gen Hx Other Genetic History: No (05/12/2016 19:17:Nallely Gonzlaez RN) Gen Hx Drugs/Meds since LMP: Yes (05/12/2016 19:17:Valentina Pyle RN) Gen Hx Medications: pnv, iron (05/12/2016 19:17:Valentina Pyle RN)
--- NOTE | 2016-05-19 14:12 | L&D General Admission ---
General Admit Datetime Report Generated by CPN: 05/19/2016 14:12 Patient Age: 20 (03/26/2016 14:37:QS system process) EDC: 05/08/2016 00:00 (05/12/2016 19:17:Valentina Pyle RN) : 3 (05/12/2016 19:17:Valentina Pyle RN) Para: 0 (05/12/2016 19:47:Valentina Pyle RN) Para: 0 (05/12/2016 19:17:Valentina Pyle RN) Term: 0 (05/12/2016 19:17:Valentina Pyle RN) : 0 (05/12/2016 19:17:Valentina Pyle RN) Spontaneous Abortions: 2 (05/12/2016 19:17:Valentina Pyle RN) Induced Abortions: 0 (05/12/2016 19:17:Valentina Pyle RN) Livin (05/12/2016 19:17:Valentina Pyle RN) Cesareans: 0 (05/12/2016 19:17:Valentina Pyle RN) VBACs: 0 (05/12/2016 19:17:Valentina Pyle RN) Ectopic: 0 (05/12/2016 19:17:Valentina Pyle RN) Multiple Births: 0 (05/12/2016 19:17:Valentina Pyle RN) Baby, Number in Womb: 1 (05/12/2016 19:47:Valentina Pyle RN) Baby, Number in Womb: 1 (05/12/2016 19:17:Valentina Pyle RN) Primary Braille Teacher: [facility] (05/12/2016 19:17:Valentina Pyle RN) Braille Teacher Other: KESHA (05/12/2016 19:17:Valentina Pyle RN) Adequate Care: Yes (05/12/2016 19:17:Valentina Pyle RN) Prepregnancy Weight (lb): 188 (05/12/2016 19:17:Valentina Pyle RN) Medication Allergy: No (05/12/2016 19:17:Valentina Pyle RN) Medication Allergies: No Known Allergies (05/13/2016) (05/13/2016 09:59:QS system process) Medication Allergies: No Known Allergies (05/01/2012) (03/26/2016 14:37:QS system process) Latex Allergy: No Latex Allergies (05/12/2016 19:17:Valentina Pyle RN) Primary Language: Lithuanian (05/12/2016 19:17:Valentina Pyle RN) Medical Tx Preferred Language: Lithuanian (05/12/2016 19:17:Valentina Pyle RN) Communication Barrier(s): None (05/12/2016 19:17:Carlos Bradley RN) Address: [address] [place] [address] (03/26/2016 14:37:QS system process) Zipcode: [facility] [place] (03/26/2016 14:37:QS system process) Home (03/26/2016 14:37:QS system process) SSN: [id number] (03/26/2016 14:37:QS system process) Next of Kin Name: HOMERO CASTANEDA (03/26/2016 14:37:QS system process) Next of Kin (03/26/2016 14:37:QS system process) Next of Kin Relationship: OR (03/26/2016 14:37:QS system process) Date of : 1995 (03/26/2016 14:37:QS system process) Marital Status: Single (03/26/2016 14:37:QS system process) Sex: Female (03/26/2016 14:37:QS system process) Race: (03/26/2016 14:37:QS system process) Ethnicity: Non- or (03/26/2016 14:37:QS system process) Mandaen: Other (03/26/2016 14:37:QS system process) Alcohol: No (05/12/2016 19:17:Carlos Bradley RN) Cigarettes: Never Smoker. [id number] (05/12/2016 19:17:Carlos Bradley RN) Marijuana: No (05/12/2016 19:17:Carlos Bradley RN) Cocaine: No (05/12/2016 19:17:Carlos Bradley RN) Other Illicit Drugs: No (05/12/2016 19:17:Carlos Bradley RN) Circumcision: N/A (05/12/2016 19:17:Carlos Bradley RN) Classes Attended: No (05/12/2016 19:17:Carlos Bradley RN) Tubal Ligation: No (05/12/2016 19:17:Carlos Bradley RN) Tubal Authorization Signed: N/A (05/12/2016 19:17:Carlos Bradley RN) Consent: N/A (05/12/2016 19:17:Carlos Bradley RN) Consent Signed: N/A (05/12/2016 19:17:Carlos Bradley RN) Cultural/Spritual Practice: No (05/12/2016 19:17:Carlos Bradley RN) Spir/Cult Dietary Needs: No (05/12/2016 19:17:Carlos Bradley RN) Blood Type: A Negative (05/12/2016 19:17:Valentina Pyle RN) Antibody Screen: negative (05/12/2016 19:17:Valentina Pyle RN) Rho(G) this : Yes (05/12/2016 19:17:Carlos Bradley RN) Date Rho(G) Given: 02/19/16 (05/12/2016 19:17:Carlos Bradley RN) Group Beta Strep: negative (05/12/2016 19:17:Valentina Pyle RN) Gonorrhea: Negative (05/12/2016 19:17:Valentina Pyle RN) Chlamydia: Negative (05/12/2016 19:17:Valentina Pyle RN) RPR/VDRL: Nonreactive (05/12/2016 19:17:Valentina Pyle RN) HIV Exposure Test: Negative (05/12/2016 19:17:Valentina Pyle RN) Hepatitis B: Negative (05/12/2016 19:17:Carlos Bradley RN) Rubella: Non-Immune (05/12/2016 19:17:Carlos Bradley RN) Varicella: Negative (05/12/2016 19:17:Carlos Bradley RN) Varicella Titer: 60 (05/12/2016 19:17:Carlos Bradley RN) Comments Obstetrical History: G1: SAB G2: SAB G3: Current (05/12/2016 19:17:Valentina Pyle RN) Details of Med/Surg Hx: Obesity (05/12/2016 19:17:Carlos Bradley RN) Inf Hx Chlamydia: Yes (05/12/2016 19:17:Valentina Pyle RN) Details of Infectious Hx: chlamydia in 2012 and 2014 (05/12/2016 19:17:Carlos Bradley RN) Gen Hx Drugs/Meds since LMP: Yes (05/12/2016 19:17:Valentina Pyle RN) Gen Hx Medications: pnv, iron (05/12/2016 19:17:Valentina Pyle RN)
--- NOTE | 2016-05-20 06:12 | L&D General Admission ---
General Admit Datetime Report Generated by CPN: 05/20/2016 06:00 INFORMATION Patient Age: 20 (03/26/2016 14:37:QS system process) EDC: 05/08/2016 00:00 (05/12/2016 19:17:Valentina Pyle RN) : 3 (05/12/2016 19:17:Valentina Pyle RN) Para: 0 (05/12/2016 19:47:Valentina Pyle RN) Term: 0 (05/12/2016 19:17:Valentina Pyle RN) : 0 (05/12/2016 19:17:Valentina Pyle RN) Spontaneous Abortions: 2 (05/12/2016 19:17:Valentina Pyle RN) Induced Abortions: 0 (05/12/2016 19:17:Valentina Pyle RN) Livin (05/12/2016 19:17:Valentina Pyle RN) Cesareans: 0 (05/12/2016 19:17:Valentina Pyle RN) VBACs: 0 (05/12/2016 19:17:Valentina Pyle RN) Ectopic: 0 (05/12/2016 19:17:Valentina Pyle RN) Multiple Births: 0 (05/12/2016 19:17:Valentina Pyle RN) Baby, Number in Womb: 1 (05/12/2016 19:47:Valentina Pyle RN) CARE Primary Actuarial Technician: [facility] (05/12/2016 19:17:Valentina Pyle RN) Actuarial Technician Other: [facility] (05/12/2016 19:17:Valentina Pyle RN) Adequate Care: Yes (05/12/2016 19:17:Valentina Pyle RN) Prepregnancy Weight (lb): 188 (05/12/2016 19:17:Valentina Pyle RN) Prepregnancy Weight (kg): 85.5 (05/12/2016 19:17:QS system process) Height (in): 65 (05/13/2016 10:19:QS system process) ALLERGIES Medication Allergy: No (05/12/2016 19:17:Valentina Pyle RN) Medication Allergies: No Known Allergies (05/13/2016) (05/13/2016 09:59:QS system process) Latex Allergy: No Latex Allergies (05/12/2016 19:17:Valentina Pyle RN) Food Allergies: N/A (05/12/2016 19:17:Nallely Gonzalez RN) Environmental Allergies: N/A (05/12/2016 19:17:Nallely Gonzalez RN) COMMUNICATION Primary Language: Palestinian (05/12/2016 19:17:Valentina Pyle RN) Medical Tx Preferred Language: Palestinian (05/12/2016 19:17:Valentina Pyle RN) Communication Barrier(s): None (05/12/2016 19:17:Carlos Bradley RN) DEMOGRAPHICS Address: [address] [place] [id number] (03/26/2016 14:37:QS system process) Zipcode: [id number] (03/26/2016 14:37:QS system process) Home (03/26/2016 14:37:QS system process) SSN: [id number] (03/26/2016 14:37:QS system process) Next of Kin Name: HOMERO CASTANEDA (03/26/2016 14:37:QS system process) Next of Kin (03/26/2016 14:37:QS system process) Next of Kin Relationship: OR (03/26/2016 14:37:QS system process) Date of : 1995 (03/26/2016 14:37:QS system process) Marital Status: Single (03/26/2016 14:37:QS system process) Sex: Female (03/26/2016 14:37:QS system process) Race: (03/26/2016 14:37:QS system process) Ethnicity: Non- or (03/26/2016 14:37:QS system process) Buddhism: Other (03/26/2016 14:37:QS system process) FOB Involved: Yes (05/12/2016 19:17:Nallely Gonzalez RN) Father of Baby Name: Marcin Fields (05/12/2016 19:17:Nallely Gonzalez RN) DRUG AND ALCOHOL USE Alcohol: No (05/12/2016 19:17:Carlos Bradley RN) Cigarettes: Never Smoker. [id number] (05/12/2016 19:17:Carlos Bradley RN) Marijuana: No (05/12/2016 19:17:Carlos Bradley RN) Cocaine: No (05/12/2016 19:17:Carlos Bradley RN) Other Illicit Drugs: No (05/12/2016 19:17:Carlos Bradley RN) VACCINE HISTORY Influenza Vaccine: No (05/12/2016 19:17:Nallely Gonzalez RN) Pneumococcal Vaccine: No (05/12/2016 19:17:Nallely Gonzalez RN) Tetanus Vaccine: No (05/12/2016 19:17:Nallely Gonzalez RN) Tdap Vaccine: No (05/12/2016 19:17:Nallely Gonzalez RN) Hepatitis B Vaccine: No (05/12/2016 19:17:Nallely Gonzalez RN) Fisher Eel [employer]: [facility] (05/12/2016 19:17:Nallely Gonzalez RN) Feeding Preference: Formula (05/12/2016 19:17:Elli Suazo RN) Benefit of Breast Feed Discussed: Yes (05/12/2016 19:17:Nallely Gonzalez RN) Circumcision: N/A (05/12/2016 19:17:Carlos Bradley RN) Classes Attended: No (05/12/2016 19:17:Carlos Bradley RN) Tubal Ligation: No (05/12/2016 19:17:Carlos Bradley RN) Tubal Authorization Signed: N/A (05/12/2016 19:17:Carlos Bradley RN) Consent: N/A (05/12/2016 19:17:Carlos Bradley RN) Consent Signed: N/A (05/12/2016 19:17:Carlos Bradley RN) Pain Management Plans: None (05/12/2016 19:17:Nallely Gonzalez RN) Plans for Labor and Delivery: None (05/12/2016 19:17:Nallely Gonzalez RN) Support Person: Marcin Fields (05/12/2016 19:17:Nallely Gonzalez RN) Support Person Relationship: Significant Other (05/12/2016 19:17:Nallely Gonzalez RN) Cultural/Spritual Practice: No (05/12/2016 19:17:Carlos Bradley RN) Spir/Cult Dietary Needs: No (05/12/2016 19:17:Carlos Bradley RN) LIVING SITUATION/DISCHARGE PLAN Living Arrangements: House (05/12/2016 19:17:Nallely Gonzalez RN) Adequate Access to:: Electric; Heat; Refrigeration; Plumbing/Running water; Phone; Transportation (05/12/2016 19:17:Nallely Gonzalez RN) WIC Program: Yes (05/12/2016 19:17:Nallely Gonzalez RN) Discharge Smoking Pipe Driller And Threader Person: Marcin Donnie (05/12/2016 19:17:Nallely Gonzalez RN) Person to Help after Discharge: Marcin Donnie (05/12/2016 19:17:Nallely Gonzalez RN) Currently Using Commun Resources: No (05/12/2016 19:17:Nallely Gonzalez RN) Outside Agency/Knock Out Hand: No (05/12/2016 19:17:Nallely Gonzalez RN) Car Seat for Discharge: Yes (05/12/2016 19:17:Nallely Gonzalez RN) Adoption Requested: No (05/12/2016 19:17:Nallely Gonzalez RN) Pt Contact w/ Post : N/A (05/12/2016 19:17:Nallely Gonzalez RN) LABS Blood Type: A Negative (05/12/2016 19:17:Valentina Pyle RN) Antibody Screen: negative (05/12/2016 19:17:Valentina Pyle RN) Rho(G) this : Yes (05/12/2016 19:17:Carlos Bradley RN) Date Rho(G) Given: 02/19/16 (05/12/2016 19:17:Carlos Bradley RN) Hemoglobin: 8.3 L (05/16/2016 07:05:QS system process) Hematocrit: 24.8 L (05/16/2016 07:05:QS system process) MCV: 82 (05/16/2016 07:05:QS system process) Group Beta Strep: negative (05/12/2016 19:17:Valentina Pyle RN) Gonorrhea: Negative (05/12/2016 19:17:Valentina Pyle RN) Chlamydia: Negative (05/12/2016 19:17:Valentina Pyle RN) RPR/VDRL: Nonreactive (05/12/2016 19:17:Valentina Pyle RN) HIV Exposure Test: Negative (05/12/2016 19:17:Valentina Pyle RN) Hepatitis B: Negative (05/12/2016 19:17:Carlos Bradley RN) Rubella: Non-Immune (05/12/2016 19:17:Carlos Bradley RN) Varicella: Negative (05/12/2016 19:17:Carlos Bradley RN) Varicella Titer: 60 (05/12/2016 19:17:Carlos Bradley RN) OB/PREVIOUS HISTORY Current Procedures: Ultrasound; NST (05/12/2016 19:17:Nallely Gonzalez RN) History of Previous : No (05/12/2016 19:17:Nallely Gonzalez RN) History of Gestational Diabetes: No (05/12/2016 19:17:Nallely Gonzalez RN) History of PIH: No (05/12/2016 19:17:Nallely Gonzalez RN) History of Incompetent Cervix: No (05/12/2016 19:17:Nallely Gonzalez RN) History of Placenta Previa/Abrup: No (05/12/2016 19:17:Nallely Gonzalez RN) History of Macrosomia: No (05/12/2016 19:17:Nallely Gonzalez RN) History of IUGR: No (05/12/2016 19:17:Nallely Gonzalez RN) History of Hemorrhage: No (05/12/2016 19:17:Nallely Gonzalez RN) History of Loss/Stillborn: No (05/12/2016 19:17:Nallely Gonzalez RN) History of : No (05/12/2016 19:17:Nallely Gonzalez RN) History of D (Rh) Sensitization: No (05/12/2016 19:17:Nallely Gonzalez RN) History Recurrent Loss/Stillborn: No (05/12/2016 19:17:Nallely Gonzalez RN) History Depression/PP Depression: No (05/12/2016 19:17:Nallely Gonzalez RN) History of Uterine Anomaly/FRIEDA: No (05/12/2016 19:17:Nallely Gonzalez RN) History of Infertility: No (05/12/2016 19:17:Nallely Gonzalez RN) History of ART Treatment: No (05/12/2016 19:17:Nallely Gonzalez RN) History of FRIEDA: No (05/12/2016 19:17:Nallely Gonzalez RN) Comments Obstetrical History: G1: SAB G2: SAB G3: Current (05/12/2016 19:17:Valentina Pyle RN) MEDICAL HISTORY Med Hx Diabetes: No (05/12/2016 19:17:Nallely Gonzalez RN) Med Hx Hypertension: No (05/12/2016 19:17:Nallely Gonzalez RN) Med Hx Heart Disease: No (05/12/2016 19:17:Nallely Gonzalez RN) Med Hx Autoimmune Disorder: No (05/12/2016 19:17:Nallely Field, RN) Med Hx Kidney Disease/UTI: No (05/12/2016 19:17:Nallely Gonzalez RN) Med Hx Neurologic/Epilepsy: No (05/12/2016 19:17:Nallely Gonzalez RN) Med Hx Psychiatric Disorders: No (05/12/2016 19:17:Nallely Gonzalez, RN) Med Hx Hepatitis/Liver Disease: No (05/12/2016 19:17:Nallely Gonzalez RN) Med Hx Varicosities/Phlebitis: No (05/12/2016 19:17:Nallely Gonzalez RN) Med Hx Thyroid Dysfunction: No (05/12/2016 19:17:Nallely Gonzalez RN) Med Hx Trauma/Violence: No (05/12/2016 19:17:Nallely Gonzalez RN) Med Hx Blood Transfusion: No (05/12/2016 19:17:Nallely Gonzalez RN) Med Hx Pulmonary (Asthma,TB): No (05/12/2016 19:17:Nallely Gonzalez RN) Med Hx Breast: No (05/12/2016 19:17:Nallely Gonzalez RN) Med Hx PARKING LINE PAINTER Surgery: No (05/12/2016 19:17:Nallely Gonzalez RN) Med Hx Hospitalization/Surgery: No (05/12/2016 19:17:Nallely Gonzalez RN) Med Hx Anesthetic Complications: No (05/12/2016 19:17:Nallely Gonzalez, RN) Med Hx Abnormal Pap Smear: No (05/12/2016 19:17:Nallely Gonzalez, RN) Other Medical Diseases: No (05/12/2016 19:17:Nallely Gonzalez RN) Med Hx Significant Family Hx: No (05/12/2016 19:17:Nallely Gonzalez RN) Details of Med/Surg Hx: Obesity (05/12/2016 19:17:Carlos Bradley RN) INFECTIOUS HISTORY Inf Hx Gonorrhea: No (05/12/2016 19:17:Nallely Gonzalez RN) Inf Hx Chlamydia: Yes (05/12/2016 19:17:Valentina Pyle RN) Inf Hx Syphilis: No (05/12/2016 19:17:Nallely Gonzalez RN) Inf Hx HIV/AIDS: No (05/12/2016 19:17:Nallely Gonzalez RN) Inf Hx Human Papilloma Virus: No (05/12/2016 19:17:Nallely Gonzalez RN) Inf Hx Pt/Partner Genital Herpes: No (05/12/2016 19:17:Nallely Gonzalez RN) Inf Hx Tuberculosis/Exposure: No (05/12/2016 19:17:Nallely Gonzalez RN) Inf Hx Hepatitis B,C: No (05/12/2016 19:17:Nallely Gonzalez RN) Inf Hx Rash or Viral Illness: No (05/12/2016 19:17:Nallely Gonzalez RN) Details of Infectious Hx: chlamydia in 2012 and 2014 (05/12/2016 19:17:Carlos Bradley RN) GENETIC HISTORY Gen Hx Age >=35 at SHAWN: No (05/12/2016 19:17:Nallely Gonzalez RN) Gen Hx Thalassemia: No (05/12/2016 19:17:Nallely Gonzalez RN) Gen Hx Congenital Heart Defect: No (05/12/2016 19:17:Nallely Gonzalez RN) Gen Hx Neural Tube Defect: No (05/12/2016 19:17:Nallely Gonzalez RN) Gen Hx Down's Syndrome: No (05/12/2016 19:17:Nallely Gonzalez RN) Gen Hx Christ-Sachs: No (05/12/2016 19:17:Nallely Gonzalez RN) Gen Hx Tera: No (05/12/2016 19:17:Nallely Gonzalez RN) Gen Hx Familial Dysautonomia: No (05/12/2016 19:17:Nallely Gonzalez RN) Gen Hx Sickle Cell Disease/Trait: No (05/12/2016 19:17:Nallely Gonzalez RN) Gen Hx Hemophilia/Blood Disorder: No (05/12/2016 19:17:Nallely Gonzalez RN) Gen Hx Muscular Dystrophy: No (05/12/2016 19:17:Nallely Gonzalez RN) Gen Hx Cystic Fibrosis: No (05/12/2016 19:17:Nallely Gonzalez RN) Gen Hx Huntingtons Chorea: No (05/12/2016 19:17:Nallely Gonzalez RN) Gen Hx Mental Retardation/Autism: No (05/12/2016 19:17:Nallely Gonzalez RN) Gen Hx Tested for Fragile X: No (05/12/2016 19:17:Nallely Gonzalez RN) Gen Hx Other Inher/Chromosomal: No (05/12/2016 19:17:Nallely Gonzalez RN) Gen Hx Maternal Metabolic DO: No (05/12/2016 19:17:Nallely Gonzalez RN) Gen Hx Pt Father or FOB Defect: No (05/12/2016 19:17:Nallely Gonzalez RN) Gen Hx Other Genetic History: No (05/12/2016 19:17:Nallely Gonzalez RN) Gen Hx Drugs/Meds since LMP: Yes (05/12/2016 19:17:Valentina Pyle RN) Gen Hx Medications: pnv, iron (05/12/2016 19:17:Valentina Pyle RN)
--- NOTE | 2016-05-21 06:12 | L&D General Admission ---
General Admit Datetime Report Generated by CPN: 05/21/2016 06:00 INFORMATION Patient Age: 20 (03/26/2016 14:37:QS system process) EDC: 05/08/2016 00:00 (05/12/2016 19:17:Valentina Pyle RN) : 3 (05/12/2016 19:17:Valentina Pyle RN) Para: 0 (05/12/2016 19:47:Valentina Pyle RN) Term: 0 (05/12/2016 19:17:Valentina Pyle RN) : 0 (05/12/2016 19:17:Valentina Pyle RN) Spontaneous Abortions: 2 (05/12/2016 19:17:Valentina Pyle RN) Induced Abortions: 0 (05/12/2016 19:17:Valentina Pyle RN) Livin (05/12/2016 19:17:Valentina Pyle RN) Cesareans: 0 (05/12/2016 19:17:Valentina Pyle RN) VBACs: 0 (05/12/2016 19:17:Valentina Pyle RN) Ectopic: 0 (05/12/2016 19:17:Valentina Pyle RN) Multiple Births: 0 (05/12/2016 19:17:Valentina Pyle RN) Baby, Number in Womb: 1 (05/12/2016 19:47:Valentina Pyle RN) CARE Primary Asbestos Handler: [facility] (05/12/2016 19:17:Valentina Pyle RN) Asbestos Handler Other: [facility] (05/12/2016 19:17:Valentina Pyle RN) Adequate Care: Yes (05/12/2016 19:17:Valentina Pyle RN) Prepregnancy Weight (lb): 188 (05/12/2016 19:17:Valentina Pyle RN) Prepregnancy Weight (kg): 85.5 (05/12/2016 19:17:QS system process) Height (in): 65 (05/13/2016 10:19:QS system process) ALLERGIES Medication Allergy: No (05/12/2016 19:17:Valentina Pyle RN) Medication Allergies: No Known Allergies (05/13/2016) (05/13/2016 09:59:QS system process) Latex Allergy: No Latex Allergies (05/12/2016 19:17:Valentina Pyle RN) Food Allergies: N/A (05/12/2016 19:17:Nallely Gonzalez RN) Environmental Allergies: N/A (05/12/2016 19:17:Nallely Gonzalez RN) COMMUNICATION Primary Language: Nicaraguan (05/12/2016 19:17:Valentina Pyle RN) Medical Tx Preferred Language: Nicaraguan (05/12/2016 19:17:Valentina Pyle RN) Communication Barrier(s): None (05/12/2016 19:17:Carlos Bradley RN) DEMOGRAPHICS Address: [address] [place] [id number] (03/26/2016 14:37:QS system process) Zipcode: [address] (03/26/2016 14:37:QS system process) Home (03/26/2016 14:37:QS system process) SSN: [id number] (03/26/2016 14:37:QS system process) Next of Kin Name: HOMERO CASTANEDA (03/26/2016 14:37:QS system process) Next of Kin (03/26/2016 14:37:QS system process) Next of Kin Relationship: OR (03/26/2016 14:37:QS system process) Date of : 1995 (03/26/2016 14:37:QS system process) Marital Status: Single (03/26/2016 14:37:QS system process) Sex: Female (03/26/2016 14:37:QS system process) Race: (03/26/2016 14:37:QS system process) Ethnicity: Non- or (03/26/2016 14:37:QS system process) Confucianist: Other (03/26/2016 14:37:QS system process) FOB Involved: Yes (05/12/2016 19:17:Nallely Gonzalez RN) Father of Baby Name: Marcin Fields (05/12/2016 19:17:Nallely Gonzalez RN) DRUG AND ALCOHOL USE Alcohol: No (05/12/2016 19:17:Carlos Bradley RN) Cigarettes: Never Smoker. [id number] (05/12/2016 19:17:Carlos Bradley RN) Marijuana: No (05/12/2016 19:17:Carlos Bradley RN) Cocaine: No (05/12/2016 19:17:Carlos Bradley RN) Other Illicit Drugs: No (05/12/2016 19:17:Carlos Bradley RN) VACCINE HISTORY Influenza Vaccine: No (05/12/2016 19:17:Nallely Gonzalez RN) Pneumococcal Vaccine: No (05/12/2016 19:17:Nallely Gonzalez RN) Tetanus Vaccine: No (05/12/2016 19:17:Nallely Gonzalez RN) Tdap Vaccine: No (05/12/2016 19:17:Nallely Gonzalez RN) Hepatitis B Vaccine: No (05/12/2016 19:17:Nallely Gonzalez RN) Lawyer Real Estate: [facility] (05/12/2016 19:17:Nallely Gonzalez RN) Feeding Preference: Formula (05/12/2016 19:17:Elli Suazo RN) Benefit of Breast Feed Discussed: Yes (05/12/2016 19:17:Nallely Gonzalez RN) Circumcision: N/A (05/12/2016 19:17:Carlos Bradley RN) Classes Attended: No (05/12/2016 19:17:Carlos Bradley RN) Tubal Ligation: No (05/12/2016 19:17:Carlos Bradley RN) Tubal Authorization Signed: N/A (05/12/2016 19:17:Carlos Bradley RN) Consent: N/A (05/12/2016 19:17:Carlos Bradley RN) Consent Signed: N/A (05/12/2016 19:17:Carlos Bradley RN) Pain Management Plans: None (05/12/2016 19:17:Nallely Gonzalez RN) Plans for Labor and Delivery: None (05/12/2016 19:17:Nallely Gonzalez RN) Support Person: Marcin Fields (05/12/2016 19:17:Nallely Gonzalez RN) Support Person Relationship: Significant Other (05/12/2016 19:17:Nallely Gonzalez RN) Cultural/Spritual Practice: No (05/12/2016 19:17:Carlos Bradley RN) Spir/Cult Dietary Needs: No (05/12/2016 19:17:Carlos Bradley RN) LIVING SITUATION/DISCHARGE PLAN Living Arrangements: House (05/12/2016 19:17:Nallely Gonzalez RN) Adequate Access to:: Electric; Heat; Refrigeration; Plumbing/Running water; Phone; Transportation (05/12/2016 19:17:Nallely Gonzalez RN) WIC Program: Yes (05/12/2016 19:17:Nallely Gonzalez RN) Discharge Chemistry Associate Person: Marcin Donnie (05/12/2016 19:17:Nallely Gonzalez RN) Person to Help after Discharge: Marcin Donnie (05/12/2016 19:17:Nallely Gonzalez RN) Currently Using Commun Resources: No (05/12/2016 19:17:Nallely Gonzalez RN) Outside Agency/Lineman A Class: No (05/12/2016 19:17:Nallely Gonzalez RN) Car Seat for Discharge: Yes (05/12/2016 19:17:Nallely Gonzalez RN) Adoption Requested: No (05/12/2016 19:17:Nallely Gonzalez RN) Pt Contact w/ Post : N/A (05/12/2016 19:17:Nallely Gonzalez RN) LABS Blood Type: A Negative (05/12/2016 19:17:Valentina Pyle RN) Antibody Screen: negative (05/12/2016 19:17:Valentina Pyle RN) Rho(G) this : Yes (05/12/2016 19:17:Carlos Bradley RN) Date Rho(G) Given: 02/19/16 (05/12/2016 19:17:Carlos Bradley RN) Hemoglobin: 8.3 L (05/16/2016 07:05:QS system process) Hematocrit: 24.8 L (05/16/2016 07:05:QS system process) MCV: 82 (05/16/2016 07:05:QS system process) Group Beta Strep: negative (05/12/2016 19:17:Valentina Pyle RN) Gonorrhea: Negative (05/12/2016 19:17:Valentina Pyle RN) Chlamydia: Negative (05/12/2016 19:17:Valentina Pyle RN) RPR/VDRL: Nonreactive (05/12/2016 19:17:Valentina Pyle RN) HIV Exposure Test: Negative (05/12/2016 19:17:Valentina Pyle RN) Hepatitis B: Negative (05/12/2016 19:17:Carlos Bradley RN) Rubella: Non-Immune (05/12/2016 19:17:Carlos Bradley RN) Varicella: Negative (05/12/2016 19:17:Carlos Bradley RN) Varicella Titer: 60 (05/12/2016 19:17:Carlos Bradley RN) OB/PREVIOUS HISTORY Current Procedures: Ultrasound; NST (05/12/2016 19:17:Nallely Gonzalez RN) History of Previous : No (05/12/2016 19:17:Nallely Gonzalez RN) History of Gestational Diabetes: No (05/12/2016 19:17:Nallely Gonzalez RN) History of PIH: No (05/12/2016 19:17:Nallely Gonzalez RN) History of Incompetent Cervix: No (05/12/2016 19:17:Nallely Gonzalez RN) History of Placenta Previa/Abrup: No (05/12/2016 19:17:Nallely Gonzalez RN) History of Macrosomia: No (05/12/2016 19:17:Nallely Gonzalez RN) History of IUGR: No (05/12/2016 19:17:Nallely Gonzalez RN) History of Hemorrhage: No (05/12/2016 19:17:Nallely Gonzalez RN) History of Loss/Stillborn: No (05/12/2016 19:17:Nallely Gonzalez RN) History of : No (05/12/2016 19:17:Nallely Gonzalez RN) History of D (Rh) Sensitization: No (05/12/2016 19:17:Nallely Gonzalez RN) History Recurrent Loss/Stillborn: No (05/12/2016 19:17:Nallely Gonzalez RN) History Depression/PP Depression: No (05/12/2016 19:17:Nallely Gonzalez RN) History of Uterine Anomaly/FRIEDA: No (05/12/2016 19:17:Nallely Gonzalez RN) History of Infertility: No (05/12/2016 19:17:Nallely Gonzalez RN) History of ART Treatment: No (05/12/2016 19:17:Nallely Gonzalez RN) History of FRIEDA: No (05/12/2016 19:17:Nallely Gonzalez RN) Comments Obstetrical History: G1: SAB G2: SAB G3: Current (05/12/2016 19:17:Valentina Pyle RN) MEDICAL HISTORY Med Hx Diabetes: No (05/12/2016 19:17:Nallely Gonzalez RN) Med Hx Hypertension: No (05/12/2016 19:17:Nallely Gonzalez RN) Med Hx Heart Disease: No (05/12/2016 19:17:Nallely Gonzalez RN) Med Hx Autoimmune Disorder: No (05/12/2016 19:17:Nallely Field, RN) Med Hx Kidney Disease/UTI: No (05/12/2016 19:17:Nallely Gonzalez RN) Med Hx Neurologic/Epilepsy: No (05/12/2016 19:17:Nallely Gonzalez RN) Med Hx Psychiatric Disorders: No (05/12/2016 19:17:Nallely Gonzalez, RN) Med Hx Hepatitis/Liver Disease: No (05/12/2016 19:17:Nallely Gonzalez RN) Med Hx Varicosities/Phlebitis: No (05/12/2016 19:17:Nallely Gonzalez RN) Med Hx Thyroid Dysfunction: No (05/12/2016 19:17:Nallely Gonzalez RN) Med Hx Trauma/Violence: No (05/12/2016 19:17:Nallely Gonzalez RN) Med Hx Blood Transfusion: No (05/12/2016 19:17:Nallely Gonzalez RN) Med Hx Pulmonary (Asthma,TB): No (05/12/2016 19:17:Nallely Gonzalez RN) Med Hx Breast: No (05/12/2016 19:17:Nallely Gonzalez RN) Med Hx DETECTIVE SERGEANT Surgery: No (05/12/2016 19:17:Nallely Gonzalez RN) Med Hx Hospitalization/Surgery: No (05/12/2016 19:17:Nallely Gonzalez RN) Med Hx Anesthetic Complications: No (05/12/2016 19:17:Nallely Gonzalez, RN) Med Hx Abnormal Pap Smear: No (05/12/2016 19:17:Nallely Gonzalez, RN) Other Medical Diseases: No (05/12/2016 19:17:Nallely Gonzalez RN) Med Hx Significant Family Hx: No (05/12/2016 19:17:Nallely oGnzalez RN) Details of Med/Surg Hx: Obesity (05/12/2016 19:17:Carlos Bradley RN) INFECTIOUS HISTORY Inf Hx Gonorrhea: No (05/12/2016 19:17:Nallely Gonzalez RN) Inf Hx Chlamydia: Yes (05/12/2016 19:17:Valentina Pyle RN) Inf Hx Syphilis: No (05/12/2016 19:17:Nallely Gonzalez RN) Inf Hx HIV/AIDS: No (05/12/2016 19:17:Nallely Gonzalez RN) Inf Hx Human Papilloma Virus: No (05/12/2016 19:17:Nallely Gonzalez RN) Inf Hx Pt/Partner Genital Herpes: No (05/12/2016 19:17:Nallely Gonzalez RN) Inf Hx Tuberculosis/Exposure: No (05/12/2016 19:17:Nallely Gonzalez RN) Inf Hx Hepatitis B,C: No (05/12/2016 19:17:Nallely Gonzalez RN) Inf Hx Rash or Viral Illness: No (05/12/2016 19:17:Nallely Gonzalez RN) Details of Infectious Hx: chlamydia in 2012 and 2014 (05/12/2016 19:17:Carlos Bradley RN) GENETIC HISTORY Gen Hx Age >=35 at SHAWN: No (05/12/2016 19:17:Nallely Gonzalez RN) Gen Hx Thalassemia: No (05/12/2016 19:17:Nallely Gonzalez RN) Gen Hx Congenital Heart Defect: No (05/12/2016 19:17:Nallely Gonzalez RN) Gen Hx Neural Tube Defect: No (05/12/2016 19:17:Nallely Gonzalez RN) Gen Hx Down's Syndrome: No (05/12/2016 19:17:Nallely Gonzalez RN) Gen Hx Christ-Sachs: No (05/12/2016 19:17:Nallely Gonzalez RN) Gen Hx Tera: No (05/12/2016 19:17:Nallely Gonzalez RN) Gen Hx Familial Dysautonomia: No (05/12/2016 19:17:Nallely Gonzalez RN) Gen Hx Sickle Cell Disease/Trait: No (05/12/2016 19:17:Nallely Gonzalez RN) Gen Hx Hemophilia/Blood Disorder: No (05/12/2016 19:17:Nallely Gonzalez RN) Gen Hx Muscular Dystrophy: No (05/12/2016 19:17:Nallely Gonzalez RN) Gen Hx Cystic Fibrosis: No (05/12/2016 19:17:Nallely Gonzalez RN) Gen Hx Huntingtons Chorea: No (05/12/2016 19:17:Nallely Gonzalez RN) Gen Hx Mental Retardation/Autism: No (05/12/2016 19:17:Nallely Gonzalez RN) Gen Hx Tested for Fragile X: No (05/12/2016 19:17:Nallely Gonzalez RN) Gen Hx Other Inher/Chromosomal: No (05/12/2016 19:17:Nallely Gonzalez RN) Gen Hx Maternal Metabolic DO: No (05/12/2016 19:17:Nallely Gonzalez RN) Gen Hx Pt Father or FOB Defect: No (05/12/2016 19:17:Nallely Gonzalez RN) Gen Hx Other Genetic History: No (05/12/2016 19:17:Nallely Gonzalez RN) Gen Hx Drugs/Meds since LMP: Yes (05/12/2016 19:17:Valentina Pyle RN) Gen Hx Medications: pnv, iron (05/12/2016 19:17:Valentina Pyle RN)
--- NOTE | 2016-05-21 06:12 | L&D Current Admission ---
Current Admit Datetime Report Generated by CPN: 05/21/2016 06:00 ADMISSION INFORMATION Current Admit Date/Time: 05/14/2016 19:22 (05/14/2016 19:39:Nallely Gonzalez RN) Reason for Admission: Induction of Labor (05/14/2016 19:39:Nallely Gonzalez RN) Chief Complaint: Scheduled Induction of Labor (05/14/2016 19:41:Nallely Gonzalez RN) EGA per Dates: 40.6 (05/14/2016 19:39:QS system process) Method of Arrival: Ambulatory (05/14/2016 19:39:Nallely Gonzalez RN) Reason for Induction: Postterm (05/14/2016 19:39:Nallely Gonzalez RN) Records Available: Yes (05/14/2016 19:39:Nallely Gonzalez RN) General Admission Information: Reviewed; Updated; Confirmed (05/14/2016 19:39:Nallely Gonzalez RN) General Admission Reviewed By: DANYA Kenny (05/14/2016 19:39:Nallely Gonzalez RN) BELONGINGS/ADVANCED DIRECTIVES Valuables/Personal Effects: Purse/Wallet; Cell Phone; Jewelry (05/14/2016 19:39:Nallely Gonzalez RN) Disposition of Belongings: Kept with Patient (05/14/2016 19:39:Nallely Gonzalez RN) Advance Direct for Healthcare: No, and Wants No Information (05/14/2016 19:39:Nallely Gonzalez RN) Durable Power of Duralumin Metalworker: No (05/14/2016 19:39:Nallely Gonzalez RN) Living Will: No (05/14/2016 19:39:Nallely Gonzalez RN) Organ Donor: Yes (05/14/2016 19:39:Nallely Gonzalez RN) Pt Rights Information Given: Yes (05/14/2016 19:39:Nallely Gonzalez RN) Pt Understands Pt Rights: Yes (05/14/2016 19:39:Nallely Gonzalez RN) LEARNING ASSESSMENT Knowledge Level: Understands L_D Process; Understands Care Activities; Had Pre-Hospital Education; Understands Diagnosis (05/14/2016 19:39:Nallely Gonzalez RN) Barriers to Learning: None (05/14/2016 19:39:Nallely Gonzalez RN) Learning Readiness: Motivated (05/14/2016 19:39:Nallely Gonzalez RN) Learns Best By: 1 to 1 Instruction; Reading; Videos; Demonstration (05/14/2016 19:39:Elli Suazo RN) Learning Needs: Labor and Delivery Process; Pain Management; Symptoms to Report; Treatment Plan; Medication; Diagnosis; Nutrition; Equipment; Infant Care; Community Resources (05/14/2016 19:39:Elli Suazo RN) DOMESTIC VIOLANCE SCREENING Dom Viol Threatened/Hurt: No (05/14/2016 19:39:Nallely Gonzalez RN) Hx of Abuse/Neglect past 2yrs: No (05/14/2016 19:39:Nallely Gonzalez RN) Feel Unsafe Going Home: No (05/14/2016 19:39:Nallely Gonzalez RN) Addt'l Observ Indicating Abuse: No (05/14/2016 19:39:Nallely Gonzalez RN) Reason Unable to Complete Screen: N/A, Screen Completed (05/14/2016 19:39:Nallely Gonzalez RN) Considered Personal Harm/Suicide: No (05/14/2016 19:39:Nallely Gonzalez RN) NUTRITIONAL/FUNCTIONAL SCREENING Problem with Appetite >5 Days: No (05/14/2016 19:39:Nallely Gonzalez RN) Chew/Swallow Difficulties: No (05/14/2016 19:39:Nallely Gonzalez RN) Inappropriate Wt Gain/Loss: No (05/14/2016 19:39:Nallely Gonzalez RN) Presence Skin Breakdown/Ulcer: No (05/14/2016 19:39:Nallely Gonzalez RN) Special Diet: No (05/14/2016 19:39:Nallely Gonzalez RN) Pt Requests Pay Station Department Manager Visit: No (05/14/2016 19:39:Nallely Gonzalez RN) Hx of Any of the Following?: N/A (05/14/2016 19:39:Nallely Gonzalez RN) New Diagnosis of: N/A (05/14/2016 19:39:Nallely Gonzalez RN) Requires Assist w/Ambulation: No (05/14/2016 19:39:Nallely Gonzalez RN) Uses Assist Device to Ambulate: No (05/14/2016 19:39:Nallely Gonzalez RN) Pt Requires Help w/ADL's: No (05/14/2016 19:39:Nallely Gonzalez RN)
== END 2016-05-17 11:05 | disposition home or self-care (01) | DRG 775 ==
LOC: LR 19:12 → 2S 05-15 15:19 → LR 05-15 15:24 → 2S 05-15 17:25
PROVIDERS: ADMIT Obstetrics & Gynecology; ATTEND Obstetrics & Gynecology
PROC: 4A1HXCZ Monitoring of Products of Conception, Cardiac Rate, External Approach (ICD-10-PCS; 2016-05-14)
PROC: 10E0XZZ Delivery of Products of Conception, External Approach (ICD-10-PCS; principal; 2016-05-15)
PROC: 0HQ9XZZ Repair Perineum Skin, External Approach (ICD-10-PCS; 2016-05-15)
PROC: 3E0P7GC Introduction of Other Therapeutic Substance into Female Reproductive, Via Natural or Artificial Opening (ICD-10-PCS; 2016-05-15)
PROC: 3E0234Z Introduction of Serum, Toxoid and Vaccine into Muscle, Percutaneous Approach (ICD-10-PCS; 2016-05-17)
PROC: 3E0134Z Introduction of Serum, Toxoid and Vaccine into Subcutaneous Tissue, Percutaneous Approach (ICD-10-PCS; 2016-05-17)
DX: O48.0 Post-term pregnancy (principal); D62 Acute posthemorrhagic anemia; Z68.41 Body mass index [BMI] 40.0-44.9, adult; O99.02 Anemia complicating childbirth; O70.0 First degree perineal laceration during delivery; O77.0 Labor and delivery complicated by meconium in amniotic fluid; O99.214 Obesity complicating childbirth; Z68.36 Body mass index [BMI] 36.0-36.9, adult; Z23 Encounter for immunization; Z28.21 Immunization not carried out because of patient refusal; Z37.0 Single live birth
CPT/HCPCS: 36415; 80307; 81005; 85025; 85027; 86592; 86850; 86900; 86901; 90707; 90715; J2300; J2550; J2590; J3490; S0119

== ENCOUNTER → 2017-01-20 | Outpatient (CLI) | payer SELFPAY ==
--- NOTE | 2017-01-20 16:51 | RADIOLOGY REPORT (SQ) ---
EXAM DESCRIPTION: U/S [id number] TRNABD 1GES W/ODOP COMPLETED DATE/TIME: 01/20/2017 4:42 pm REASON FOR STUDY: ENCOUNTER FOR SUPERVISION OF OTHER NORMAL , FIRST TRIMESTER Z34.81 ENCOU NTER FOR SUPRVSN OF NORMAL , FIRST TRIM COMPARISON: None. TECHNIQUE: Transvaginal static and realtime grayscale images acquired of the pelvis. Additional jyothi cted spectral and color Doppler images recorded. All images stored on PACs. bHCG: Not applicable. LIMITATIONS: None. FINDINGS: FETUS: Living intrauterine . EGA: 6 week 5 day. SHAWN: 09/10/2017. FHR: 143 beats per minute. SUBCHORIONIC BLEED: No. SIZE OF BLEED: Not applicable. UTERUS: No masses. No anomalies. CERVICAL LENGTH: 2.8 cm. Closed. RIGHT ADNEXA: Normal ovary with normal vascular flow. No adnexal free fluid. Small cyst measuring 1.6 cm. LEFT ADNEXA: Ovary not identified. No adnexal free fluid. No adnexal masses. FREE FLUID: None. OTHER: No other significant finding. IMPRESSION: LIVING INTRAUTERINE . EGA 6 WEEK 5 DAY. Trimester of : First - 0 to 13 weeks. TECHNICAL DOCUMENTATION: JOB ID: [id number] [employer]- All Rights Reserved
== END ==
LOC: RAD 16:07
PROVIDERS: ATTEND Nurse Practitioner Women's Health
DX: Z34.81 Encounter for supervision of other normal pregnancy, first trimester (principal)
CPT/HCPCS: 76801

== ENCOUNTER 2017-08-14 12:00 | Outpatient (CLI) | payer MEDICAID ==
--- NOTE | 2017-08-14 12:44 | Non Stress Test Report ---
Non Stress Test Datetime Report Generated by CPN: 08/14/2017 12:44 DEMOGRAPHIC EGA NST: 36.0 INDICATION Indication for Study: Decreased Movement; Ordered by Provider MONITORING Monitor Explained: Monitor Explained; Test Explained; Patient Verbalized Understanding Time on Monitor: 08/14/2017 12:12 Time off Monitor: 08/14/2017 12:39 NST Duration: 27 NST INTERVENTIONS NST Interventions: PO Hydration Physician Notified NST: A. Tsai, CNM BABY A: [id number] BABY A Movement : Present Contraction Frequency : none FHR Baseline : 140 Accelerations : 15X15 Variability : Moderate 6-25bpm NST Review: Meets Criteria for Reactive NST NST Review and Verified By : Marimar Travis RN NST Results: Reactive NST REPORT Report Trigger: Send Report
== END 2017-08-14 12:48 | disposition home or self-care (01) ==
LOC: LC 12:00
PROVIDERS: ATTEND Obstetrics & Gynecology
PROC: 4A1HXCZ Monitoring of Products of Conception, Cardiac Rate, External Approach (ICD-10-PCS; principal; 2017-08-14)
DX: O36.8130 Decreased fetal movements, third trimester, not applicable or unspecified (principal); Z3A.36 36 weeks gestation of pregnancy
CPT/HCPCS: 59025

== ENCOUNTER 2017-09-10 06:58 | Inpatient (IN) | payer MEDICAID ==
[2017-09-10 07:30] LABS: APPEARANCE,URINE CLEAR; BILIRUBIN,URINE NEGATIVE (NEGATIVE); COLOR,URINE YELLOW; GLUCOSE, URINE NEGATIVE (NEGATIVE); KETONES,URINE NEGATIVE (NEGATIVE); LEUKOCYTE ESTERASE,URINE NEGATIVE (NEGATIVE); NITRITE,URINE NEGATIVE (NEGATIVE); PROTEIN,URINE NEGATIVE (NEGATIVE); URINE SPECIFIC GRAVITY 1.004; UROBILINOGEN,URINE NEGATIVE mg/dL (<2.0)
[2017-09-10 07:38] LABS: AMNISURE (ROM) POSITIVE (NEGATIVE)
[2017-09-10 07:51] LABS: URINE AMPHETAMINES SCREEN NEGATIVE; URINE BARBITURATES SCREEN NEGATIVE; URINE BENZODIAZEPINES SCREEN NEGATIVE; URINE COCAINE SCREEN NEGATIVE; URINE MARIJUANA (THC) SCREEN NEGATIVE; URINE METHADONE SCREEN NEGATIVE; URINE PHENCYCLIDINE SCREEN NEGATIVE
--- NOTE | 2017-09-10 07:53 | Admission Physical ---
Datetime Report Generated by CPN: 09/10/2017 07:52 CURRENT ADMISSION Hx Assessment: The History has been Reviewed and is Current Chief Complaint: Uterine Contractions; Suspected Ruptured Membranes Indication for Induction: Not Applicable Admit Impression : Term, Intrauterine ; Active Labor; Ruptured Membranes Admit Plan: Admit to Unit; Initiate Labor Augmentation Protocol ALLERGIES Medication Allergies: No Medication Allergies: No Known Allergies (09/10/2017) Latex: No Latex Allergies OBSTETRICAL HISTORY EDC: 09/11/2017 00:00 : 2 Para: 1 Term: 1 : 0 SAB: 0 IAB: 0 Ectopic: 0 Livin Cesareans: 0 VBACs: 0 Multiple Births: 0 Gestational Diabetes: No Rh Sensitization: No Incompetent Cervix: No FRIEDA: No Infertility: No ART Treatment: No Uterine Anomaly: No IUGR: No Hx Previous C/S: No Macrosomia: No Hx Loss/Stillborn: No PIH: No Hx : No Placenta Previa/Abruption: No Depression/PP Depression: Yes PTL/PROM: No Post Hemorrhage: No Current Procedures: Ultrasound; NST Obstetrical History Comments: G1: 2016 40 weeks G2: current SEE RECORDS Alcohol: No Marijuana : No Cocaine: No Other Illicit Drugs: No Cigarettes: Never Smoker. 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 Surgery: No Heart Disease: No Hosp/Surgery: No Autoimmune Disorder: No Anesthetic Complications: No Kidney Disease: No Abnormal Pap Smear: No Neuro/Epilepsy: No Psychiatric Disorders: No Other Medical Diseases: No Hepatitis/Liver Disease: No Significant Family History: No Varicosities/Phlebitis: No Trauma/Violence : No Thyroid Dysfunction: No INFECTIOUS HISTORY Gonorrhea: No Genital Herpes: No Chlamydia: No Tuberculosis: No Syphilis: No Hepatitis: No HIV/AIDS Exposure: No Rash or Viral Illness: No HPV: No PHYSICAL EXAM General: Normal HEENT: Normal Neurologic: Normal Thyroid: Deferred Heart: Normal Lungs: Normal Breast: Normal Back: Normal Abdomen: Normal Genitourinary Exam: Normal Extremities: Normal DTRs: Normal Pelvic Type: Adequate Physical Exam Comments: pelvis proven 7 lbs 13 oz Vital Signs: Reviewed VAGINAL EXAM Dilatation: 6 Effacement: 80 Station: -2 Contraction Comments: irreg. MEMBRANES Membranes: Ruptured FETUS A EGA: 39.6 Monitoring: External US FHR- Baseline: 120 Variability: Moderate 6-25bpm Accelerations: 15X15 Decelerations: None FHR Category: Category I Estimated Weight (gm): 3700 Admit Comment: Ctx all night, ? SROM 0230, clear. + amnisure SVE as above admit see record for complete hx pt plans for no epidural pit per protocol PLANS FOR LABOR AND DELIVERY Labor and Delivery: None Pain Management: Natural Feeding Preference: Breast Benefit of Breast Feed Discussed: Yes Circumcision: Yes INFORMED CONSENT Assignment: Joanne Draper MD Signature: with User ID: Joe : with User ID: Joe
[2017-09-10 08:42] LABS: ABSOLUTE EOSINOPHILS # (AUTO) 0.1 10^3/uL (0.0-0.6); ABSOLUTE LYMPHOCYTES (AUTO) 1.6 10^3/uL (0.5-4.7); ABSOLUTE MONOCYTES (AUTO) 0.6 10^3/uL (0.1-1.4); ABSOLUTE NEUT (AUTO) 5.3 10^3/uL (1.7-8.2); BASOPHILS % (AUTO) 0.5 % (0-2); EOSINOPHILS % (AUTO) 1.5 % (0-6); HEMATOCRIT 28.7 % (36.0-47.0); HEMOGLOBIN 9.3 g/dL (12.0-15.5); LYMPHOCYTES % (AUTO) 20.4 % (13-45); MEAN CORPUSCULAR HEMOGLOBIN 24.2 pg (27.0-33.4); MEAN CORPUSCULAR HGB CONC 32.6 g/dL (32.0-36.0); MEAN CORPUSCULAR VOLUME 74 fl (80-97); MONOCYTES % (AUTO) 8.4 % (3-13); RED BLOOD COUNT 3.87 10^6/uL (3.72-5.28); RED CELL DISTRIBUTION WIDTH 16.2 % (11.5-14.0); SEGMENTED NEUTROPHILS % (AUTO) 69.2 % (42-78); TOTAL CELLS COUNTED % (AUTO) 100 %; WHITE BLOOD COUNT 7.7 10^3/uL (4.0-10.5)
[2017-09-10] MEDS ORDERED: MISOPROSTOL 0.2 MG TABLET ONE (09:15)
[2017-09-10] MEDS ORDERED: OXYTOCIN/NORMAL SALINE 20 UNIT/1,000 ML RTUINJ ONE (09:15)
[2017-09-10] MEDS ORDERED: LIDOCAINE 1% INJ-PF (10 MG/ML) 30 ML SDV ONE (09:15)
[2017-09-10 09:22] LABS: PLATELET COUNT 201 10^3/uL (150-450)
--- NOTE | 2017-09-10 12:05 | Warning Signs in Babies ---
VOD Warning Signs Datetime Report Generated by N: 09/10/2017 12:05 VOD#608 -Warning Signs in Babies: Viewed with Parent(s)/Family (09/10/2017 12:00:Tess Marrufo RN)
[2017-09-10] MEDS ORDERED: DIBUCAINE 1% OINTMENT 28 GM TP PRN (12:11)
[2017-09-10] MEDS ORDERED: ZOLPIDEM TARTRATE 5 MG TABLET PO PRN (12:11)
[2017-09-10] MEDS ORDERED: OXYTOCIN/NORMAL SALINE 20 UNIT/1,000 ML RTUINJ IV PRN (12:11)
[2017-09-10] MEDS ORDERED: BENZOCAINE/MENTHOL AEROSOL SPRAY 56 ML TOP PRN (12:11)
[2017-09-10] MEDS ORDERED: DIPH/PERTUSS(ACELL)/TETANUS VAC/PF 0.5 ML SYR (>=10YO) IM PRN (12:11)
[2017-09-10] MEDS ORDERED: ACETAMINOPHEN WITH CODEINE #3 TABLET PO PRN ×2 (12:11)
[2017-09-10] MEDS ORDERED: MEASLES,MUMPS&RUBELLA VACC/PF 0.5 ML VIAL SUBCUT PRN (12:11)
[2017-09-10] MEDS: IBUPROFEN 800 MG TABLET PO SCH ×2 (16:47→22:03)
[2017-09-10] MEDS: FERROUS SULFATE 325 MG TABLET PO SCH (17:34)
[2017-09-10] MEDS: DOCUSATE SODIUM 100 MG CAPSULE PO SCH (17:34)
[2017-09-11] MEDS: IBUPROFEN 800 MG TABLET PO SCH ×3 (05:52→21:31)
[2017-09-11 07:44] LABS: HEMATOCRIT 30.6 % (36.0-47.0); HEMOGLOBIN 10.2 g/dL (12.0-15.5); MEAN CORPUSCULAR HEMOGLOBIN 24.4 pg (27.0-33.4); MEAN CORPUSCULAR HGB CONC 33.4 g/dL (32.0-36.0); MEAN CORPUSCULAR VOLUME 73 fl (80-97); PLATELET COUNT 222 10^3/uL (150-450); RED BLOOD COUNT 4.19 10^6/uL (3.72-5.28); RED CELL DISTRIBUTION WIDTH 16.7 % (11.5-14.0); WHITE BLOOD COUNT 10.9 10^3/uL (4.0-10.5)
--- NOTE | 2017-09-11 09:56 | PDOC PROGRESS REPORT ---
Subjective-OB Progress Note for:: 09/11/17 Subjective: s/p vaginal delivery breast feeding well bonding well with ff@u-1 mild lochia anticipate d/c in AM Physical Exam (OB) Vital Signs: Temp Pulse Resp BP Pulse Ox 98.4 F 102 H 16 127/59 H 96 09/10/17 19:35 09/10/17 19:35 09/10/17 19:35 09/10/17 19:35 09/10/17 19:35 Intake & Output 09/10/17 09/11/17 09/12/17 06:59 06:59 06:59 Intake Total 400 Balance 400 Weight 101.7 kg - PIH/Pre-Eclampsia Clonus: Negative Headache: Absent Epigastric Pain: No Visual Changes: No - Lochia Lochia Amount: Small 10-25 ml Lochia Color: Rubra/Red - Abdomen Description: Soft Hernia Present: No Fundal Description: Firm, Midline Fundal Height: u/u - u/2 Objective-Diagnostic Laboratory: 09/11/17 07:02 09/11/17 07:02 WBC 10.9 H RBC 4.19 Hgb 10.2 L Hct 30.6 L MCV 73 L MCH 24.4 L MCHC 33.4 RDW 16.7 H Plt Count 222
[2017-09-11] MEDS: PRENATAL VITAMIN W DHA CAPSULE PO SCH (10:13)
[2017-09-11] MEDS: FERROUS SULFATE 325 MG TABLET PO SCH ×2 (10:13→18:26)
[2017-09-11] MEDS: DOCUSATE SODIUM 100 MG CAPSULE PO SCH ×2 (11:42→18:27)
[2017-09-11] MEDS: SENNOSIDES/DOCUSATE 8.6-50 MG 1 EACH TABLET PO SCH (11:42)
[2017-09-12] MEDS: IBUPROFEN 800 MG TABLET PO SCH ×2 (05:22→15:31)
[2017-09-12 07:51] VITALS: BP 129/73
--- NOTE | 2017-09-12 08:32 | PDOC DISCHARGE SUMMARY ---
Final Diagnosis Discharge Date: 09/12/17 - Final Diagnosis (1) Vaginal delivery Is this a current diagnosis for this admission?: Yes (2) Anemia associated with acute blood loss Is this a current diagnosis for this admission?: Yes Discharge Data - Discharge Medication Prescriptions: Ferrous Sulfate [Feosol 325 mg Tablet] 325 mg PO BID #90 tablet Ibuprofen [Motrin 800 mg Tablet] 800 mg PO Q8 #90 tablet Home Medications: Vitamin [-U Multiple Vitamin Capsule] 1 cap PO DAILY #0 capsule 05/16/16 Ferrous Sulfate [Feosol 325 mg Tablet] 325 mg PO BID #90 tablet 09/12/17 Ibuprofen [Motrin 800 mg Tablet] 800 mg PO Q8 #90 tablet 09/12/17 Intrapartum Procedure(s): Spontaneous Vaginal Delivery - Diagnosis Test Laboratory: Temp Pulse Resp BP Pulse Ox 97.8 F 86 18 129/73 H 97 09/12/17 07:24 09/12/17 07:24 09/12/17 07:24 09/12/17 07:24 09/12/17 07:24 09/10/17 09/10/17 09/11/17 07:13 08:11 07:02 RBC 3.87 4.19 Hgb 9.3 L 10.2 L Hct 28.7 L 30.6 L Urine Opiates Screen NEGATIVE - Discharge information/Instructions Discharge Activity: Activity As Tolerated Discharge Diet: Regular Disposition: HOME, SELF-CARE Follow up with: [facility] in: 3
[2017-09-12] MEDS: PRENATAL VITAMIN W DHA CAPSULE PO SCH (10:30)
[2017-09-12] MEDS: FERROUS SULFATE 325 MG TABLET PO SCH (10:30)
[2017-09-12] MEDS: DOCUSATE SODIUM 100 MG CAPSULE PO SCH (15:31)
[2017-09-12] MEDS: SENNOSIDES/DOCUSATE 8.6-50 MG 1 EACH TABLET PO SCH (15:31)
--- NOTE | 2017-09-22 16:44 | Delivery Summary ---
Del Sum A-C Datetime Report Generated by CPN: 09/22/2017 16:43 DELIVERY PERSONNEL DELIVERY PERSONNEL: [id number] Delivery Doctor:: Tari Adkins CNM Labor and Delivery Nurse:: Tess Marrufo RNclay press operator Nurse:: Bibi Denis RN (resident) Welfare Project Manager/PRODUCTION CONTROLLER: Kezia Scanlon CNA II MATERNAL INFORMATION Delivery Anesthesia: None Medications After Delivery: Pitocin Bolus-Please Comment; Pitocin Drip 20 Units/1000ml NSS Meds After Delivery Comment: 20 units pitocin bolusing after delivery of placenta as ordered Maternal Complications: None Provider Comments: of viable male , head, shoulders and body delivered without difficulty, with spontaneous cry and respirations, to maternal abodment, cord clamped X2 and cut free after 2 min delay, spontaneous delivery of placenta via beyer mechanis, appears intact 3 VC, vagina and perineum insepcted, no lacerations noted, hemostasis acheived with external fundal massage and IV Pitocin, routine pp care, mother and baby in stable condition. LABOR SUMMARY EDC: 09/11/2017 00:00 No. Babies in Womb: 1 Attempted: No Labor Anesthesia: None LABOR INFORMATION Reason for Induction: Not Applicable Onset of Labor: 09/10/2017 08:00 Complete Dilatation: 09/10/2017 11:19 Oxytocin: Augmentation Group B Beta Strep: negative Steroids Given: None Reason Steroids Not Administered: Not Applicable MEMBRANES Membranes Rupture Method: Spontaneous Rupture of Membranes: 09/10/2017 02:30 Length of Rupture (hr): 9.23 Amniotic Fluid Color: Clear Amniotic Fluid Amount: Moderate Amniotic Fluid Odor: Normal STAGES OF LABOR Stage 1 hr: 3 Stage 1 min: 19 Stage 2 hr: 0 Stage 2 min: 25 Stage 3 hr: 0 Stage 3 min: 4 Total Time in Labor hr: 3 Total Time in Labor min: 48 VAGINAL DELIVERY Episiotomy: None Laceration #1: None Laceration Extension #1: N/A Laceration Repair: Not Applicable Sponge Count Correct: N/A Sharps Count Correct: N/A CSECTION DELIVERY Primary Indication: N/A Secondary Indication: N/A CSection Incidence: N/A Labor: N/A Elective: N/A CSection Incision: N/A BABY A INFORMATION Infant Delivery Date/Time: 09/10/2017 11:44 Method of Delivery: Vaginal Method of Delivery: Vaginal Born in Route : No : N/A Forceps: N/A Vacuum Extraction: N/A Shoulder Dystocia : No PRESENTATION/POSITION BABY A Presentation: Cephalic Cephalic Presentation: Vertex Breech Presentation: N/A PLACENTA INFORMATION BABY A Placenta Delivery Time : 09/10/2017 11:48 Placenta Method of Delivery: Spontaneous Placenta Method of Delivery: Spontaneous Placenta Status: Delivered SCORES BABY A Heart Rate 1 min: >100 bpm Resp Effort 1 min: Good Cry Reflex Irritability 1 min: Cough or Sneeze or Pulls Away Muscle Tone 1 min: Active Motion Color 1 min: Body [place], Extremities Blue Resuscitation Effort 1 min: Tactile Stimulation SCORE 1 MIN: 9 Heart Rate 5 min: >100 bpm Resp Effort 5 min: Good Cry Reflex Irritability 5 min: Cough or Sneeze or Pulls Away Muscle Tone 5 min: Active Motion Color 5 min: Body [place], Extremities Blue Resuscitation Effort 5 min: Tactile Stimulation SCORE 5 MIN: 9 INFORMATION BABY A Gestational Age at Delivery: 39.6 Gestational Status: Full Term- 39- 40.6 Weeks Outcome : Liveborn Infant Condition : Stable Sex: Male Infant Sex: Male IDENTIFICATION BABY A Infant Verification Date/Time: 09/10/2017 12:17 ID Band Number: [id number] Mother's Name Verified: Yes Infant RN Verifying : C. [place], RN Additional Verifying Personnel: Rosy Magaña, RNC WEIGHT/LENGTH BABY A Infant Birthweight (gm): 4130 Weight (lb): 9 Infant Weight (oz): 2 Length (in): 22.00 Infant Length (cm): 55.88 CORD INFORMATION BABY A No. Cord Vessels: 3 Nuchal Cord : N/A Cord Blood Taken: Yes-For Eval (Mom's Blood Type - or O+) Infant Suction: None ASSESSMENT BABY A Infant Complications: None Physical Findings at Delivery: Within Normal Limits; Caput Succedaneum Respirations: Appears Normal Skin to Skin: Yes Salt Lifter/ALS Called : No Care By: R Yaron RN Transferred To: Remains with Mother BABY B INFORMATION : N/A SIGNATURES Assignment: Joanne Draper MD Signature: with User ID: Joe : with User ID: Joe
== END 2017-09-12 16:37 | disposition home or self-care (01) | DRG 775 ==
LOC: LC 06:58 → LR 07:52 → 2S 14:23
PROVIDERS: ADMIT Student in an Organized Health Care Education/Training Program; ATTEND Student in an Organized Health Care Education/Training Program
PROC: 10E0XZZ Delivery of Products of Conception, External Approach (ICD-10-PCS; principal; 2017-09-10)
PROC: 4A1HXCZ Monitoring of Products of Conception, Cardiac Rate, External Approach (ICD-10-PCS; 2017-09-10)
DX: O99.02 Anemia complicating childbirth (principal); D64.9 Anemia, unspecified; Z3A.39 39 weeks gestation of pregnancy; Z37.0 Single live birth
CPT/HCPCS: 36415; 80307; 81005; 84112; 85025; 85027; 86592; 86850; 86900; 86901; J2590; J3490

== ENCOUNTER 2018-01-06 19:56 | Emergency (ER) | payer MEDICAID ==
--- NOTE | 2018-01-06 22:37 | ER Document Report ---
HPI - HPI Pain Level: 2 Notes: Patient is a 22-year-old female with no significant past medical history who presents to the ED complaining of a laceration to the dorsal side of her left proximal first digit of the foot prior to arrival. Patient states that she believes she may have cut it on a piece of glass. Patient states that she is still able to ambulate and move her toe without difficulties otherwise. Denies any drug allergies. Denies any smoking or IV drug use. Denies any headache, fever, URI, sore throat, chest pain, palpitations, syncope, cough, shortness of breath, wheeze, dyspnea, abdominal pain, nausea/vomiting/diarrhea, urinary retention, dysuria, hematuria, numbness/tingling, muscle paralysis/weakness, or rash. Unknown last tetanus. - ROS Systems Reviewed and Negative: Yes All other systems reviewed and negative - REPRODUCTIVE Reproductive: DENIES: : Past Medical History - Social History Smoking Status: Never Smoker Family History: Reviewed & Not Pertinent Patient has suicidal ideation: No Patient has homicidal ideation: No Renal/ Medical History: Denies: Hx Peritoneal Dialysis Vertical Provider Document - CONSTITUTIONAL Agree With Documented VS: Yes Notes: PHYSICAL EXAMINATION: GENERAL: Well-appearing, well-nourished and in no acute distress. LUNGS: Breath sounds clear to auscultation bilaterally and equal. No wheezes rales or rhonchi. HEART: Regular rate and rhythm without murmurs, rubs, gallops. Musculoskeletal: Lt foot/ankle: + U-shaped flap laceration noted to the posterior prox 1st digit, superficial. FROM to passive/active dorsiflexion. Strength 5+/5. N/V intact distal. No bony tenderness of the foot. Achilles intact. Extremities: No cyanosis, clubbing, or edema b/l. Peripheral pulses 2+. Capillary refill less than 3 seconds. NEUROLOGICAL: Normal speech, normal gait. Normal sensory, motor exams PSYCH: Normal mood, normal affect. SKIN: see above. Warm, Dry, normal turgor, no rashes or lesions noted. - INFECTION CONTROL TRAVEL OUTSIDE OF THE [place] IN LAST 30 DAYS: No Course - Re-evaluation Re-evalutation: 01/07/18 00:10 Patient is an afebrile, well-hydrated, 22-year-old female who presents to the ED for a laceration to her left dorsal proximal great toe. Vitals are acceptable without any significant tachycardia, tachypnea, or hypoxia. PE is otherwise unremarkable for any neurovascular compromise, obvious tendon/ ligament rupture, obvious fracture/dislocation, septic joint, retained foreign body. Wound was thoroughly irrigated and cleansed. Wound edges were approximated appropriately utilizing 7 simple interrupted sutures. Wound dressing was placed and wound instructions reviewed. Procedure was performed by Lauryn HUBBARD under supervision. Patient tolerated procedure well without any complications. Tetanus was updated today. No further labs or imaging warranted at this time based on H&P. I will send her home with a prescription for Keflex. Conservative measures for symptoms. Recheck with your PCM in 2-3 days. Return to the ED with any worsening/concerning symptoms otherwise as reviewed discharge. Sutures will need removed in about 10 days. Patient is in agreement. - Vital Signs Vital signs: Temp Pulse Resp BP Pulse Ox 98.2 F 91 16 134/86 H 100 01/06/18 20:02 01/06/18 20:02 01/06/18 20:02 01/06/18 20:02 01/06/18 20:02 Procedures - Laceration/Wound Repair Left Anterior Toe Great toe Time completed: 23:50 Wound length (cm): 3 Wound's Depth, Shape: Superficial Laceration pre-procedure: Sterile PPE donned, Chloraprep applied Anesthetic type: 1% Lidocaine Volume Anesthetic (mLs): 3 Wound explored: Clean, No foreign body removed Irrigated w/ Saline (mLs): 100 Wound Debrided: Minimal Wound Repaired With: Sutures Suture Size/Type: 4:0, Nylon Number of Sutures: 7 Layer Closure?: No Post-procedure wound care: Sterile dressing applied Post-procedure NV exam normal: Yes Complications: No Discharge - Discharge Clinical Impression: Toe laceration Qualifiers: Encounter type: initial encounter Toe: great toe Damage to nail status: without damage Foreign body presence: without foreign body Laterality: left Qualified Code(s): S91.112A - Laceration without foreign body of left great toe without damage to nail, initial encounter Condition: Stable Disposition: HOME, SELF-CARE Instructions: Antibiotic Ointment Protection ([facility]), Laceration Care ([facility]), Prophylactic Antibiotic ([facility]), Soap Cleansing ([facility]), Tetanus Immunization Given ([facility]) Additional Instructions: Do not shower or bathe for 24 hours. After 24 hours you may shower but no submersion of the wound under water. Keep the original dressing on the wound for 24 hours unless the drainage soaks through. Change the dressing daily thereafter and keep the knots of the suture material clean from any dried discharge. You may leave the wound open to the air once there is no more discharge. See your PCM in 2-3 days for a recheck. Monitor for any signs of worsening pain or redness, purulent drainage, streaks, and/or fever. Return to the ED if noticing any of the above symptoms or as needed. Take medications as directed. Your sutures will need to be removed in 10 days. Prescriptions: Cephalexin Monohydrate [Keflex 500 mg Capsule] 500 mg PO BID #14 capsule Forms: Elevated Blood Pressure, Return to Work Referrals: RADHA SAMANO MD [Primary Care Provider] - 01/11/18
[2018-01-06] MEDS ORDERED: LIDOCAINE 1% INJ-PF (10 MG/ML) 30 ML SDV INJ ONE (22:38)
[2018-01-06] MEDS ORDERED: DIPH/PERTUSS(ACELL)/TETANUS VAC/PF 0.5 ML SYR (>=10YO) IM ONE (22:39)
[2018-01-07] MEDS ORDERED: CEPHALEXIN 500 MG CAPSULE PO ONE (00:13)
[2018-01-07 00:30] VITALS: BP 133/87
--- NOTE | 2018-01-07 08:27 | RADIOLOGY REPORT (SQ) ---
EXAM DESCRIPTION: FOOT LEFT COMPLETE COMPLETED DATE/TIME: 01/06/2018 9:01 pm REASON FOR STUDY: lac s/p stepping on glass great toe laceration evaluate for radiopaque foreign bod y COMPARISON: None. NUMBER OF VIEWS: Three views. TECHNIQUE: AP, lateral and oblique radiographic images acquired of the left foot. LIMITATIONS: Artifact from towel wrapped over the great toe FINDINGS: MINERALIZATION: Normal. BONES: No acute fracture or dislocation. No worrisome bone lesions. JOINTS: No effusions. SOFT TISSUES: No soft tissue swelling. No foreign body. OTHER: No other significant finding. IMPRESSION: No acute fracture. No radiopaque foreign body TECHNICAL DOCUMENTATION: JOB ID: [id number] [employer]- All Rights Reserved Reading location - IP/workstation name: [email or web address] [email or web address]
== END 2018-01-07 00:31 | disposition home or self-care (01) ==
LOC: ER 19:56
PROC: 0HQNXZZ Repair Left Foot Skin, External Approach (ICD-10-PCS; principal; 2018-01-06)
DX: S91.112A Laceration without foreign body of left great toe without damage to nail, initial encounter (principal); W45.8XXA Other foreign body or object entering through skin, initial encounter
CPT/HCPCS: 99283